=== PATIENT | female | born 1950 | race African-American/Black ===

== ENCOUNTER 2017-04-03 21:03 | Emergency (ER) | payer MEDICARE, MEDICAID ==
[~2017-04-03] VITALS: Ht 165.1 cm; Wt 85.3 kg
--- NOTE | 2017-04-03 21:15 | NUR ---
to bed 3 [facility] private ambulance c/o fever and cold symptoms. place pt on cardiac monitoring, continuous pox. pt daughter at bedside. pending er md lucas.
[2017-04-03] MEDS ORDERED: IV NS 0.9% 1,000 ML BAG IV ONE (22:00)
[2017-04-03 22:06] LABS: BASOPHILS % (AUTO) 0.1 % (0.0-2.0); EOSINOPHILS # (AUTO) 0.4 /CMM (0.0-0.7); EOSINOPHILS % (AUTO) 2.8 % (0.0-6.0); HEMATOCRIT 45 % (33-45); HEMOGLOBIN 14.8 g/dL (11.5-14.8); LYMPHOCYTES # (AUTO) 2.1 /CMM (0.8-4.8); LYMPHOCYTES % (AUTO) 14.3 % (20.0-44.0); MEAN CORPUSCULAR HEMOGLOBIN 30 PG (26.0-33.0); MEAN CORPUSCULAR HGB CONC 33 g/dl (31.0-36.0); MEAN CORPUSCULAR VOLUME 90 fL (82-100); MONOCYTES # (AUTO) 0.3 /CMM (0.1-1.30); MONOCYTES % (AUTO) 2.2 % (2.0-12.0); NEUTROPHILS # (AUTO) 12.1 /CMM (1.8-8.9); NEUTROPHILS % (AUTO) 80.6 % (43.0-81.0); PLATELET COUNT (AUTO) 297 /CMM (150-450); RDW COEFFICIENT OF VARIATION 14.6 (11.5-15.0); RED BLOOD CELL COUNT(AUTO) 4.96 MIL/uL (4.0-5.2)
[2017-04-03 22:25] LABS: CALCIUM, SERUM 9.2 mg/dL (8.5-10.1); CARBON DIOXIDE 24 mmol/L (21-32); CHLORIDE 108 mmol/L (98-107); GLUCOSE 99 mg/dL (74-106); POTASSIUM 3.5 mmol/L (3.5-5.1); SODIUM SERUM 142 mmol/L (136-145); UREA NITROGEN, BLOOD 10 mg/dL (7-18)
[2017-04-03 22:27] LABS: TROPONIN I < 0.017 ng/mL (0.00-0.056)
[2017-04-03 22:28] LABS: ALANINE AMINOTRANSFERASE 34 U/L (12-78); ALBUMIN 3.3 g/dL (3.4-5.0); ALKALINE PHOSPHATASE 64 U/L (46-116); ASPARTATE AMINOTRANSFERASE 24 U/L (15-37); BILIRUBIN,DIRECT 0.4 mg/dL (0.0-0.2); BILIRUBIN,TOTAL 1.7 mg/dL (0.2-1.0); TOTAL PROTEIN, SERUM 7.6 g/dL (6.4-8.2)
[2017-04-03] MEDS ORDERED: ACETAMINOPHEN 650 MG/SUPP.RECT RC ONE (22:38)
--- NOTE | 2017-04-03 22:40 | NUR ---
rectal temp 100.1. er md made aware. pt medicated as ordered.
--- NOTE | 2017-04-03 22:45 | NUR ---
er md at bedside talking to pt daughter regarding lab results and discharge.
--- NOTE | 2017-04-03 22:58 | NUR ---
CALLED [facility] FOR TRANSPORTATION GOING BACK TO SNF, ETA 0039
--- NOTE | 2017-04-04 | NUR ---
pt asleep, no acute distress noted, resp even and unlabored. pt daughter remains at bedside.
[2017-04-04] MEDS ORDERED: ACETAMINOPHEN 650 MG/SUPP.RECT RC ONE (01:30)
--- NOTE | 2017-04-04 01:50 | NUR ---
IV removed. Catheter intact and site benign. Pressure and 4x4 applied to site. No bleeding noted.
--- NOTE | 2017-04-04 01:51 | NUR ---
transport at bedside report given to [facility]t transport.
[2017-04-04 01:58] VITALS: BP 179/76
== END 2017-04-04 02:00 | disposition home or self-care (01) ==
LOC: ER 21:05
DX: J06.9 Acute upper respiratory infection, unspecified (principal); R50.9 Fever, unspecified; I12.9 Hypertensive chronic kidney disease with stage 1 through stage 4 chronic kidney disease, or unspecified chronic kidney disease; N18.9 Chronic kidney disease, unspecified; Z86.73 Personal history of transient ischemic attack (TIA), and cerebral infarction without residual deficits
CPT/HCPCS: 36415; 71010; 80048; 80076; 84484; 85025; 96360; 99285; A4606; J7030; Z7610

== ENCOUNTER 2020-01-30 22:00 | Inpatient (IN) | payer MEDICARE, OTHER ==
[~2020-01-30] VITALS: Ht 165.1 cm; Wt 93.9 kg
[2020-01-30] MEDS ORDERED: LORAZEPAM INJ 2 MG/ML VIAL ONE (22:03)
--- NOTE | 2020-01-30 22:15 | NUR ---
PT EFRAIN FROM [facility] C/O BEING FOUDN ALTERED, POSSIBLE SEIZURE, PT CONTRACTED AT BASELINE, APPEARS TO BE ACTIVELY HAVING A SEIZURE TO ER BED 11, PLACED ON NC 2 SATIING 100%, BLOOD DRAWN AND SENT TO LAB
[2020-01-30 22:16] LABS: BASOPHILS % (AUTO) 0.6 % (0.0-2.0); EOSINOPHILS % (AUTO) 1.1 % (0.0-6.0); HEMATOCRIT 46 % (33-45); HEMOGLOBIN 15.5 g/dL (11.5-14.8); LYMPHOCYTES # (AUTO) 2.1 /CMM (0.8-4.8); LYMPHOCYTES % (AUTO) 24.7 % (20.0-44.0); MEAN CORPUSCULAR HGB CONC 34 g/dl (31.0-36.0); MEAN CORPUSCULAR VOLUME 95 fL (82-100); MONOCYTES # (AUTO) 0.8 /CMM (0.1-1.30); MONOCYTES % (AUTO) 9.4 % (2.0-12.0); NEUTROPHILS # (AUTO) 5.5 /CMM (1.8-8.9); NEUTROPHILS % (AUTO) 64.2 % (43.0-81.0); PLATELET COUNT (AUTO) 239 /CMM (150-450); RED BLOOD CELL COUNT(AUTO) 4.84 MIL/uL (4.0-5.2); WHITE BLOOD COUNT (AUTO) 8.6 K/uL (4.3-11.0)
--- NOTE | 2020-01-30 22:22 | NUR ---
PT TAKEN TO CT
[2020-01-30 22:24] LABS: CALCIUM, SERUM 10.1 mg/dL (8.5-10.1); CARBON DIOXIDE 27 mmol/L (21-32); CHLORIDE 100 mmol/L (98-107); CREATININE 0.9 mg/dL (0.6-1.3); GLUCOSE 106 mg/dL (74-106); POTASSIUM 4.2 mmol/L (3.5-5.1); SODIUM SERUM 138 mmol/L (136-145); UREA NITROGEN, BLOOD 17 mg/dL (7-18)
[2020-01-30 22:30] LABS: ALANINE AMINOTRANSFERASE 39 U/L (12-78); ALBUMIN 3.6 g/dL (3.4-5.0); ALKALINE PHOSPHATASE 127 U/L (46-116); ASPARTATE AMINOTRANSFERASE 29 U/L (15-37); BILIRUBIN,DIRECT 0.2 mg/dL (0.0-0.2); BILIRUBIN,TOTAL 0.7 mg/dL (0.2-1.0); TOTAL PROTEIN, SERUM 8.7 g/dL (6.4-8.2)
[2020-01-30] MEDS ORDERED: LORAZEPAM INJ 2 MG/ML VIAL IVP ONE (22:30)
[2020-01-30] MEDS ORDERED: IV NS 0.9% 1,000 ML BAG IV ONE (22:30)
[2020-01-30 22:31] LABS: ALCOHOL, BLOOD < 3 mg/dL (0-0)
--- NOTE | 2020-01-30 22:32 | NUR ---
PT CEASED POSSIBLE SEIZURE ACTIVITY
--- NOTE | 2020-01-30 22:41 | NUR ---
URINE COLLECTED AND SENT TO LAB
--- NOTE | 2020-01-30 23:23 | NUR ---
DR APONTE PAGED PER DR ANGEL.
--- NOTE | 2020-01-30 23:23 | NUR ---
COVID SEND OUT COLLECTED AND SENT TO LAB
[2020-01-31] VITALS (7 sets, daily range): BP systolic 122–188; BP diastolic 77–118
--- NOTE | 2020-01-31 00:17 | NUR ---
REPORT CALLED IN TO AUGUSTINE
[2020-01-31] MEDS ORDERED: IV NS 0.9% 1,000 ML IV PRN ×2 (00:21)
[2020-01-31] MEDS ORDERED: ZOLPIDEM TARTRATE 5 MG TABLET PO PRN (00:30)
[2020-01-31] MEDS ORDERED: HYDROCODONE/APAP 5/325MG TABLET PO PRN (00:30)
[2020-01-31] MEDS ORDERED: MAG HYDROX/AL HYDROX/SIMETH 30 ML UDC PO PRN (00:30)
[2020-01-31] MEDS ORDERED: ACETAMINOPHEN 325 MG TABLET PO PRN (00:30)
[2020-01-31] MEDS ORDERED: ONDANSETRON HCL/PF 4 MG/2 ML VIAL IVP PRN (00:30)
[2020-01-31] MEDS ORDERED: MAGNESIUM HYDROXIDE 30 ML UDC PO PRN (00:30)
--- NOTE | 2020-01-31 00:40 | NUR ---
RN OPENING NOTES: RECEIVED PT ON 2LPM VIA NC AND IS TOLERATING WELL. NO SOB NOTED. PT HAS FINN IV #20G AND IS PATENT AND INTACT. CURRENTLY H/L AT THIS TIME. PT OPENS EYES BUT IS NONVERBAL. BED PADDED FOR SEIZURE PRECAUTIONS. PT NOTED WITH G TUBE AND IS CLAMPED AT THIS TIME. BED KEPT IN LOW, LOCKED POSITION, AND SIDE RAILS X 3 UP. BED ALARM ACTIVATED. WILL CONTINUE TO MONITOR PT.
[2020-01-31] MEDS: ENOXAPARIN SODIUM 40 MG/0.4 ML DISP.SYRIN SQ SCH ×2 (01:25→21:28)
--- NOTE | 2020-01-31 01:43 | NUR ---
RN NOTES: SPOKE WITH ANSWERING SERVICES FOR DR. APONTE. AWAITING FOR CALLBACK.
--- NOTE | 2020-01-31 02:05 | NUR ---
RN NOTES: CALLED ANSWERING SERVICES AND NOTIFIED THEM THAT I NEED TO SPEAK WITH MD. [employer] [employer] PAGED AND LEFT VOICEMAILS. STILL AWAITING CALLBACK.
--- NOTE | 2020-01-31 02:38 | NUR ---
RN NOTES: [employer] [employer] CALLED BACK AND ASKED IF MD REACHED BACK. SHE CALLED DR. APOTNE'S PHONE AND LEFT VOICEMAIL. NO CALLBACK FOR NOW.
--- NOTE | 2020-01-31 02:42 | NUR ---
MISSION SUPPORT SPECIALIST NOTES: SPOKE WITH MD AND GOT ORDER FOR KEPPRA 500MG BID STARTING NOW, CLONIDINE 0.1MG TID PRN SBP>150, OK TO START PT ON JEVITY 55ML/HR TUBE FEEDING. PT WILL BE ON TELE AND ADMITTING DIAGNOSIS IS SEIZURE. Addendum: 01/31/20 at 0246 by ROSARIO POSADAS RN AWARE OF ELEVATED BP. Addendum: 01/31/20 at 0332 by ROSARIO POSADAS RN ALSO CLARIFIED ORDER; PT IS TO BE ON TELE NOT MED SURG
[2020-01-31] MEDS ORDERED: LEVETIRACETAM SOL (5 ML) 100 MG/ML UDC PO SCH ×2 (03:00→21:00)
[2020-01-31] MEDS ORDERED: CLONIDINE HCL 0.1 MG TABLET PO PRN (03:00)
[2020-01-31] MEDS ORDERED: JEVITY 1.2 CAL 1,000 ML BOTTLE GT PRN (04:30)
--- NOTE | 2020-01-31 05:00 | NUR ---
TON CONTAINER FILLER NOTES: STARTED PT ON JEVITY 1.2 30ML/HR FOR NOW. WILL INCREASE TOLERATED.
[2020-01-31] MEDS ORDERED: DOCU-141 PO (06:04)
[2020-01-31] MEDS ORDERED: OMEP20CA15 PO (06:04)
[2020-01-31] MEDS ORDERED: NA P133E RC (06:04)
[2020-01-31] MEDS ORDERED: CLOP75TA15 PO (06:04)
[2020-01-31] MEDS ORDERED: FURO-144 PO (06:04)
[2020-01-31] MEDS ORDERED: ALBU2.5V38 NEB (06:04)
[2020-01-31] MEDS ORDERED: CYAN100T44 GT (06:04)
[2020-01-31] MEDS ORDERED: MULT-754 PO (06:04)
--- NOTE | 2020-01-31 06:38 | NUR ---
PRIME BROKER CLOSING NOTES: ALL NEEDS WERE ATTENDED AND ANTICIPATED FOR. PT KEPT CLEAN, DRY, AND COMFORTABLE. PT REMAINS ON 2LPM VIA NC AND IS TOLERATING WELL. NO SOB NOTED. NO S/S OF DISTRESS. PT REMAINS NONVERBAL AND CONTRACTED. PT OPENS EYES ONLY. PT AROUSABLE TO NAME AND TOUCH. PT HAS IV ON FINN 20G AND IS BEING INFUSED WITH IV NS AT 75ML/HR. PT ALSO HAS JEVITY FEEDING GOING THROUGH G TUBE AND IS RUNNING AT 30ML/HR. PT TOLERATING WELL. NO RESIDUAL NOTED. BED KEPT IN LOW, LOCKED POSITION, AND SIDE RAILS X 3UP, BED ALARM ACTIVATED AND BED PADDED FOR SEIZURE PRECAUTIONS. PT ON TELE MONITOR AND READING SHOWS SR 88. WILL ENDORSE TO AM NURSE FOR BARBARA.
--- NOTE | 2020-01-31 06:57 | NUR ---
PRODUCTION OPERATIONS INSPECTOR NOTE CRITICAL VALUE BUN 95. TRENDING DOWN IN EXPECTED DIRECTION FROM 102. Addendum: 01/31/20 at 0700 by DACIA CODY RN PLEASE DISREGARD ABOVE
--- NOTE | 2020-01-31 07:20 | NUR ---
MS RN RECEIVED A NON VERBAL NEW ADMISSION, AWAKE, G TUBE ON AT 30ML/HOUR, NO DISTRESS NOTED W/ ELEVATED B/P, WILL RECHECKED AGAIN.
--- NOTE | 2020-01-31 07:24 | NUR ---
CONCESSIONIST NOTES: ENDORSED TO AM NURSE, TISH ALMEIDA.
[2020-01-31] MEDS ORDERED: PANTOPRAZOLE 40 MG TABLET.DR PO SCH (09:23)
[2020-01-31] MEDS ORDERED: ZOLPIDEM TARTRATE 5 MG TABLET GT PRN (09:27)
[2020-01-31] MEDS ORDERED: MAGNESIUM HYDROXIDE 30 ML UDC GT PRN (09:27)
[2020-01-31] MEDS ORDERED: MAG HYDROX/AL HYDROX/SIMETH 30 ML UDC GT PRN (09:27)
--- NOTE | 2020-01-31 09:55 | NUR ---
MS TISH RECHECKED V/S, B/P-188/110,TEMP 99.5, WILL MONITOR PATIENT.
[2020-01-31] MEDS ORDERED: LEVETIRACETAM SOL (5 ML) 100 MG/ML UDC GT SCH ×2 (10:00→21:00)
[2020-01-31] MEDS: PANTOPRAZOLE 40 MG/PACK PACK GT SCH (11:08)
[2020-01-31] MEDS: CLONIDINE HCL 0.1 MG TABLET GT PRN (11:09)
--- NOTE | 2020-01-31 11:10 | NUR ---
MS WINSTON CATAPRES 0.1MG GT GIVEN FORELEVATED B/P, WILL RECHECK LATER TODAY.
[2020-01-31 11:25] LABS: C-REACTIVE PROTEIN 2.7 mg/dL (0.0-0.9)
--- NOTE | 2020-01-31 11:30 | NUR ---
MS TISH TYLENOL 650 MG GT GIVEN FOR TEMP 99.9, WILL RECHECKED LATER.
[2020-01-31] MEDS: ACETAMINOPHEN 650 MG/20.3 ML UDC GT PRN ×2 (11:38→17:47)
--- NOTE | 2020-01-31 16:37 | NUR ---
MS RN RECEIVED A POSITIVE RESULT FOR COVID, THIS IS THE SECOND SPECIMEN SENT.
[2020-01-31] MEDS ORDERED: DOCUSATE SODIUM 100 MG CAPSULE PO SCH (17:00)
--- NOTE | 2020-01-31 17:35 | NUR ---
MS RN WAS SEEN BY DR. ROCHA, NEUROLOGIST W/ WITNESS SEIZURE LASTS FO 1.5 MINUTES, W/ ORDERS MADE AND CARRIED OUT.
[2020-01-31] MEDS: DOCUSATE SODIUM LIQ 100 MG/10 ML UDC GT SCH (17:47)
[2020-01-31] MEDS: LORAZEPAM INJ 2 MG/ML VIAL IV PRN ×2 (17:50→22:50)
--- NOTE | 2020-01-31 17:50 | NUR ---
MS RN KEPPRA 1000MG AND ATIVAN 1MG IV GIVEN, PATIENT'S SEIZURE STOPPED.
[2020-01-31] MEDS ORDERED: LEVETIRACETAM SOL (5 ML) 100 MG/ML UDC PO ONE (18:00)
--- NOTE | 2020-01-31 20:00 | NUR ---
RETAIL COVERAGE MERCHANDISER LEAD NOTES RECEIVED PATIENT IN BED WITH HOB ELEVATED. NO SEIZURE ACTIVITY NOTED. NO SHORTNESS OF BREATH. ON 2 L NASAL CANNULA. 02 SAT 100%. NO S/S OF PAIN. ON TELE NSR 71. G TUBE SITE INTACT AND PATIENT, INFUSING JEVITY AT 55ML/HR. 0ML RESIDUAL NOTED. 20 G IVSL R AC INTACT AND PATIENT. REPOSITIONED PER HER COMFORT. SIDE RAILS UP. CALL LIGHT WITHIN REACH. VSS. WILL CONTINUE TO MONITOR.
--- NOTE | 2020-01-31 21:57 | NUR ---
SUPERVISOR HAND SILVERING NURSE FACIAL TWITCHING NOTED WILL ADMINISTER ATIVAN SCHEDULED. NO DISTRESS NOTED. REPOSITIONED PATIENT. KEPT HER CLEAN AND DRY. DUE HS MEDICATIONS GIVEN. WILL CONTINUE TO MONITOR.
[2020-02-01] VITALS (36 sets, daily range): BP systolic 115–200; BP diastolic 72–124
[2020-02-01] MEDS: CLONIDINE HCL 0.1 MG TABLET GT PRN ×3 (03:25→19:22)
--- NOTE | 2020-02-01 03:25 | NUR ---
CUPOLA MECHANIC NOTE PAZ RN GAVE CATAPRES 0.1MG BY G TUBE FOR BP 189/108. WILL RECHECK.
[2020-02-01] MEDS: JEVITY 1.2 CAL 1,000 ML BOTTLE GT PRN (03:53)
--- NOTE | 2020-02-01 04:25 | NUR ---
INTELLIGENCE CLERK NOTE BP CAME DOWN 166/82. CONTINUE TO MONITOR HER.
--- NOTE | 2020-02-01 06:37 | NUR ---
QUALITY IMPROVEMENT COORDINATOR CLOSING NOTE PT IS SLEEPING IN BED IN NO DISTRESS AN NO SEIZURE. 02 SATURATION IS 100% ON 2LP ON TELE NSR 94. NO SS OF PAIN. G TUBE FEEDING IS INFUSING WELL AT 55ML/HR. 0ML RESIDUAL TOLERATED WELL DURING SHIFT. HOB ELEVATED. KEPT DRY AND CLEAN. REPOSITIONED EVERY 2 HOURS DURING SHIFT. SIDE RAILS UP X2. CALL MORAES IS IN REACH. WILL ENDORSE TO DAY SHIFT RN ACCORDINGLY.
[2020-02-01 07:15] LABS: BASOPHILS % (AUTO) 0.4 % (0.0-2.0); HEMATOCRIT 43 % (33-45); HEMOGLOBIN 14.4 g/dL (11.5-14.8); LYMPHOCYTES % (AUTO) 18.5 % (20.0-44.0); MEAN CORPUSCULAR HGB CONC 33 g/dl (31.0-36.0); MEAN CORPUSCULAR VOLUME 96 fL (82-100); MONOCYTES # (AUTO) 0.6 /CMM (0.1-1.30); NEUTROPHILS % (AUTO) 71.1 % (43.0-81.0); PLATELET COUNT (AUTO) 187 /CMM (150-450); RED BLOOD CELL COUNT(AUTO) 4.51 MIL/uL (4.0-5.2); WHITE BLOOD COUNT (AUTO) 5.7 K/uL (4.3-11.0)
[2020-02-01] MEDS: LORAZEPAM INJ 2 MG/ML VIAL IV PRN ×2 (07:39→19:22)
[2020-02-01 07:40] LABS: CALCIUM, SERUM 9.3 mg/dL (8.5-10.1); CREATININE 0.7 mg/dL (0.6-1.3); MAGNESIUM 2.3 mg/dL (1.8-2.4); PHOSPHORUS 2.7 mg/dL (2.5-4.9); POTASSIUM 3.9 mmol/L (3.5-5.1)
--- NOTE | 2020-02-01 07:49 | NUR ---
RN NOTE Patient presents with facial twitching and minimal head movements from left to right. Ativan PRN given as scheduled. Patient in no acute distress, will continue to monitor. Addendum: 02/01/20 at 0805 by KENY TSAI RN BP was also elevated at 200/119, HR 98.
--- NOTE | 2020-02-01 08:05 | NUR ---
RN NOTE BP is down to 160/88. Patient is sleeping, will continue to monitor.
--- NOTE | 2020-02-01 08:15 | NUR ---
RN OPENING NOTE Patient is resting in bed, A/o x0, opens eyes, showing no signs of acute distress or SOB, saturating 100% on 1L NC. IV line in the RAC#20g is clean and intact s/l. G-tube feeding is running Jevity 1.2 @ 55mls/hour. Bed is in lowest position, side rails x3 in upright position, call light is within reach, fall, safety, seizure and aspiration precautions enforced. Will continue with plan of care.
--- NOTE | 2020-02-01 08:16 | NUR ---
dr. vega notified regarding patient seizure activity and he increase dose of seizure meds,primary rn and pharmacy made aware.
[2020-02-01] MEDS: DOCUSATE SODIUM LIQ 100 MG/10 ML UDC GT SCH ×2 (08:27→17:13)
[2020-02-01] MEDS: ACETAMINOPHEN 650 MG/20.3 ML UDC GT PRN (08:27)
[2020-02-01] MEDS: LEVETIRACETAM SOL (5 ML) 100 MG/ML UDC GT SCH ×2 (08:28→20:09)
[2020-02-01] MEDS: PANTOPRAZOLE 40 MG/PACK PACK GT SCH (08:28)
[2020-02-01] MEDS: CLOPIDOGREL BISULFATE 75 MG TABLET GT SCH (08:28)
[2020-02-01] MEDS: FUROSEMIDE 40 MG TABLET GT SCH (08:28)
[2020-02-01] MEDS: CYANOCOBALAMIN 100 MCG TABLET GT SCH (08:33)
[2020-02-01] MEDS ORDERED: OMEPRAZOLE 20 MG CAPSULE.DR PO SCH (09:00)
[2020-02-01] MEDS ORDERED: VALSARTAN 80 MG TABLET PO SCH (09:30)
[2020-02-01] MEDS: VALSARTAN 80 MG TABLET GT SCH (09:39)
[2020-02-01 09:41] LABS: ABG BASE EXCESS 3.6 mmol/L; ABG OXYGEN SATURATION 98.3 % (92.0-98.5); ABG PCO2 42.6 mmHg (35.0-45.0); ABG PH 7.439 (7.350-7.450); ABG PO2 106.3 mmHg (75.0-100.0); AaDO2 43.1 mmHg; COHb 0.3 % (0.5-1.5); MetHb 0.5 % (0.0-1.5); O2Hb 97.5 % (94.0-97.0); SITE, ABG Left Radial; VENT MODE, BG nasal cannula
--- NOTE | 2020-02-01 09:46 | NUR ---
DR. TONY CARDIOLOGY CONSULT REVIEWED VITALS AND ELEVATED BP W/ NEW BP MEDS.DR. LOPES PULMONARY CONSULT R/T COVID DX RELAYED PATIENT V/S AND MENTAL STATUS AND POSITIVE FOR SNOORING,ABG DONE RELAYED TO DR. LOPES NO NEW ORDER,WILLL CONTINUE TO MONITOR. PRIMARY RN AWARE.
[2020-02-01] MEDS ORDERED: PIPERACILLIN /TAZOBACTAM 3.375 G in IV D5W 50 ML IV SCH (10:00)
[2020-02-01] MEDS ORDERED: ZOSYN IVPB 3.375 G in IV D5W 50ml IV ONE (10:30)
--- NOTE | 2020-02-01 11:51 | NUR ---
RN NOTE Per Dr. León, order Kepprea 1000mg IV ONE TIME. Orders repeated back and will carry out.
[2020-02-01] MEDS ORDERED: LEVETIRACETAM (500MG) 1,000 MG in IV NS 0.9% 100 ML IV ONE (12:00)
--- NOTE | 2020-02-01 12:18 | NUR ---
RN NOTE Patient still presents with facial twitching on the right side, Keppra is running IV. Will continue to monitor patient.
--- NOTE | 2020-02-01 12:20 | NUR ---
patient still with facial twiching ,primary RN to give one dose iv keppra,PER NEURO DR. ROCHA he will talk to dr. weems for possible idrips neuroleptics and pt. need frquent neuro checks.
--- NOTE | 2020-02-01 12:22 | NUR ---
followup with dr. torre per he will talk to family,discussed code status still full code per dr. weems move patient to icu for frequent neuro checks.
--- NOTE | 2020-02-01 13:15 | NUR ---
REPORT GIVEN TO VIVIAN WINSTON FOR BARBARA. PATIENT IS TO BE TRANSFERRED TO ICU.
--- NOTE | 2020-02-01 14:00 | NUR ---
PATIENT WAS SUCCESSFULLY TRANSFERRED TO ROOM 255 ACLS PROTOCOL. TOLERATED WELL. HOOKED UP TO MONITOR. NO SIGNS OF DISTRESS.
--- NOTE | 2020-02-01 16:00 | NUR ---
Seen by Neuro Dr De La Fuente with new orders.
[2020-02-01] MEDS ORDERED: LACOSAMIDE 200 MG in IV NS 0.9% 50 ML IV SCH (16:30)
[2020-02-01] MEDS ORDERED: LACOSAMIDE 50 MG in IV NS 0.9% 50 ML IV SCH (16:30)
[2020-02-01] MEDS ORDERED: VIMPAT 200 MG in IV NS 0.9% 100 ML IV ONE (17:00)
[2020-02-01] MEDS: PIPERACILLIN /TAZOBACTAM 3.375 G in IV D5W 100 ML IV SCH (18:04)
--- NOTE | 2020-02-01 18:56 | NUR ---
RN CLOSING NOTE Patient in bed appears calm and relaxed. Noted with R side of face twitching occasionally. No signs of distress during seizures. Suction at bedside. On NC 1 L o2 sat @ 100%. AO x0 non verbal and only moves to localized pain. SR 90-100 bpm. GT feeding running Jevity @ 55ml/hr tolerating well. Flushed water via GT for hydration. Has FINN #18. Padded side rails and seizure precautions implemented. Safety measures reinforced. Bed locked and on lowest position. Will endorse to night nurse nurse.
--- NOTE | 2020-02-01 19:15 | NUR ---
RN OPENING NOTES RECEIVED PT ON BED GCS 6, EYES CLOSED WITHDRAWAL ON PAIN, NON RESPONSIVE TO VERBAL, ON O2 2L VIA NC SPO2 99% NO SIGN AND SYMPTOMS OF RESPIRATORY DISTRESS, WHILE RECEIVING PT I NOTICE THAT SHE HAD A TWITCHING SEIZURE THAT LAST FOR 15 SEC, PRN MEDICATION WAS GIVEN MOUTH SUCTIONING DONE MINIMAL SECRETION COLLECTED, ON TELE MONITOR READS SINUS RHYTHM, DROPLET ISOLATION MAINTAINED FOR COVID 19, SEIZURE PRECAUTION MAINTAINED , SAFETY MEASURE MAINTAINED WILL CONT TO MONITOR Addendum: 02/01/20 at 2352 by ANJUM EDUARDO RN PT ON GTUBE PATENT AND ON PLACED RESIDUAL CHECKED WITH ONGOING JEVITY 1.2 RUNNING AT 55 ML/HR, PT HAVE IV# 20 RAC PATENT AND FLUSHED AND ROSAURA MIDLINE PATENT AND FLUSHED
[2020-02-01] MEDS: ENOXAPARIN SODIUM 40 MG/0.4 ML DISP.SYRIN SQ SCH (20:10)
--- NOTE | 2020-02-01 20:41 | NUR ---
RN NOTES CALLED DR APONTE DUE TO PATIENT BP IS STILL HIGH AFTER GIVING CATAPRES 0.1MG PRN @ 1921 HER LATEST BP IS 167/89, ALSO INFORM HIM ABOUT THE TWITCHING SEIZURE OF THE PT @ 1914, HE MADE AN ORDER FOR NITRO PASTE 1/2 INCH Q6H AND ALSO INFORM DR. ROCHA ABOUT THE PT SEIZURE EPISODE, INFORMED DR. ROCHA WAITING RESPONSE
[2020-02-01] MEDS: NITROGLYCERIN PACKET 1 GM PACKET TOP SCH (21:05)
[2020-02-01] MEDS: LACOSAMIDE 100 MG in IV NS 0.9% 50 ML IV SCH (22:02)
[2020-02-01] MEDS ORDERED: LACOSAMIDE 100 MG in IV NS 0.9% 50 ML IV SCH (23:00)
[2020-02-02] VITALS (85 sets, daily range): BP systolic 57–177; BP diastolic 32–108
--- NOTE | 2020-02-02 | NUR ---
RN NOTES NITROL PASTE NON ADMINISTERED BECAUSE IT IS TOO EARLY TO GIVE LAST DOSE WAS GIVE @ 2100 LATEST BP IS 131/89 CHARGE NURSE AWARE
[2020-02-02] MEDS: NITROGLYCERIN PACKET 1 GM PACKET TOP SCH ×4 (00:06→11:35)
[2020-02-02] MEDS: JEVITY 1.2 CAL 1,000 ML BOTTLE GT PRN (00:45)
[2020-02-02] MEDS: PIPERACILLIN /TAZOBACTAM 3.375 G in IV D5W 100 ML IV SCH ×3 (01:32→17:08)
[2020-02-02] MEDS: CLONIDINE HCL 0.1 MG TABLET GT PRN (06:50)
--- NOTE | 2020-02-02 07:12 | NUR ---
RN CLOSING NOTES PT ON BED GCS 7, OPEN EYES TO STIMULI, NO SIGN AND SYMPTOMS OF RESPIRATORY DISTRESS NO SIGNIFICANT CHANGES ON CONDITION NOTED,BEDSIDE MONITOR READS SINUS RHYTHM, DROPLET ISOLATION MAINTAINED, SAFETY AND SEIZURE PRECAUTION OBSERVED ALL NEEDS ATTENDED WILL ENDORSE TO AM SHIFT NURSE
--- NOTE | 2020-02-02 07:15 | NUR ---
DAIRY TECHNOLOGIST NOTES RECEIVED PATIENT OBTUNDED , OPENS EYES , DOESN'T FOLLOW COMMANDS , NOT IN ACUTE DISTRESS , RESPIRATIONS EVEN AND UNLABORED WITH SPO2 OF 100% VIA 2LPM NC , SR 75 ON BEDSIDE MONITOR , GT PATENT AND INTACT WITH JEVITY @ 55 ML /HR TOLERATING WELL WITH NO RESIDUALS , FINN # 18 PATENT AND INTACT SL , FINN MIDLINE WITH NS @ TKO INFUSING WELL , ALL NEEDS ATTENDED , WILL CONTINUE TO MONITOR
--- NOTE | 2020-02-02 08:17 | NUR ---
AMMONIUM NITRATE CRYSTALLIZER NOTES RECEIVED A CALL FROM DR ESPINO , DISCUSSED PT HAD EPISODE OF TWITCHING WITH ELEVATED HR @ 1915 PM LASTING FOR 15 SECONDS ,NO EPISODES OF TWITCHING OR SEIZURE AT THIS TIME , PER MD PUT AN ORDER FOR EEG ROUTINE , ORDER CARRIED OUT
[2020-02-02] MEDS: DOCUSATE SODIUM LIQ 100 MG/10 ML UDC GT SCH ×2 (08:26→17:07)
[2020-02-02] MEDS: LEVETIRACETAM SOL (5 ML) 100 MG/ML UDC GT SCH ×2 (08:26→21:23)
[2020-02-02] MEDS: FUROSEMIDE 40 MG TABLET GT SCH (08:27)
[2020-02-02] MEDS: PANTOPRAZOLE 40 MG/PACK PACK GT SCH (08:27)
[2020-02-02] MEDS: HYDROCODONE/APAP 5/325MG TABLET GT PRN (08:27)
[2020-02-02] MEDS: CLOPIDOGREL BISULFATE 75 MG TABLET GT SCH (08:27)
[2020-02-02] MEDS: VALSARTAN 80 MG TABLET GT SCH (08:27)
[2020-02-02] MEDS: LACOSAMIDE 100 MG in IV NS 0.9% 50 ML IV SCH (08:42)
[2020-02-02] MEDS ORDERED: MINOXIDIL (2.5MG) 2.5 MG TABLET PO SCH (09:00)
[2020-02-02] MEDS ORDERED: AMLODIPINE BESYLATE 5 MG TABLET PO ONE (09:00)
[2020-02-02] MEDS ORDERED: AMLODIPINE BESYLATE 5 MG TABLET PO SCH (09:00)
[2020-02-02] MEDS: CYANOCOBALAMIN 100 MCG TABLET GT SCH (09:31)
--- NOTE | 2020-02-02 09:38 | NUR ---
CCU NURSE NOTES INSERTED FC ORDERED BY DR JACOB , DRAINING VIA GRAVITY WITH CLEAR YELLOW URINE , TOLERATED WELL WILL CONTINUE TO MONITOR
[2020-02-02] MEDS: LORAZEPAM INJ 2 MG/ML VIAL IV PRN (09:46)
--- NOTE | 2020-02-02 09:53 | NUR ---
OIL EXPLORATION ENGINEER NOTES NOTIFIED DR STARK PT HAD EPISODE OF FACIAL TWITCHING FOR 15-20 SECONDS NOTED POST ICTAL SNOORING AT THIS TIME , VS STABLE NO DISTRESS ,SUCTIONED PT , ON 2LPM NC SPO2 OF 100% , PRN ATIVAN 1MG GIVEN , PER MD GIVE PT ANOTHER VIMPAT 100MG AND INCREASE DOSE TO 200MG Q12 ,
--- NOTE | 2020-02-02 10:25 | NUR ---
PANEL MONITOR NOTES CALLED DR STARK NOTIFIED PT IS HAVING SEIZURE ACTIVITY , PER MD HE DISCUSSED PLAN OF INTUBATING THE PT TO DR JACOB , NOTIFIED DR LOPES REGARDING THR PLAN OF INTUBATION DUE TO FREQUENT SEIZURE ACTIVITY , PER OK TO INTUBATE , CALL DR BASILIA ELLIS FOR INTUBATION
[2020-02-02] MEDS ORDERED: LACOSAMIDE 100 MG in IV NS 0.9% 50 ML IV ONE (10:30)
--- NOTE | 2020-02-02 10:45 | NUR ---
RD SCIENTIST NOTES PT STABLE S/P INTUBATION , NO DISTRESS , TOLERATED WELL , , , SPO2 OF 100% , ETT 7.5/ IN PLACE , AC 16 , TV 500 FIO2 50% AND PEEP OF 5 , CHEST XRAY PLACED STAT , PER DR BASILIA ELLIS GIVE VERSED 4MG IVP , ORDER CARRIED OUT .
--- NOTE | 2020-02-02 10:50 | NUR ---
MANAGER HYDRAULIC NOTES CHEST XRAY REVIEWED BY DR LOPES ,
[2020-02-02] MEDS ORDERED: MIDAZOLAM HCL 2 MG/2ML VIAL IV ONE (11:00)
--- NOTE | 2020-02-02 11:00 | NUR ---
RT PT ORALLY INTUBATED WITH 7.5 ETT MARKED AT 23 CM LIP. ETT SECURED AND STABLED WITH ANCHOR FAST. VENT ALARMS CHECKED AND AUDIBLE. VENT PLUGGED IN RED OUTLET. WILL CONTINUE TO MONITOR T.O SHIFT.
[2020-02-02] MEDS: MIDAZOLAM HCL 100 MG in IV NS 0.9% 80 ML IV PRN ×2 (11:33→23:01)
[2020-02-02 13:17] LABS: ABG BASE EXCESS 4.6 mmol/L; ABG OXYGEN SATURATION 99.2 % (92.0-98.5); ABG PCO2 32.6 mmHg (35.0-45.0); ABG PH 7.534 (7.350-7.450); ABG PO2 163.7 mmHg (75.0-100.0); AaDO2 156.1 mmHg; COHb 0.2 % (0.5-1.5); MetHb 0.2 % (0.0-1.5); O2Hb 98.8 % (94.0-97.0); PEEP,BG 5 cm H2O; SITE, ABG Left Radial; VT, ABG 500 mL
--- NOTE | 2020-02-02 13:23 | NUR ---
FORMULATION TECHNICIAN NOTES ABG RELATED TO DR LOPES , ORDERED TO CHANGE TV TO 450 , ORDER CARRIED OUT , RT MAISHA AT BEDSIDE , CHANGED TV TO 450 , SPO2 OF 100% NO DISTRESS NOTED, WILL CONTINUE TO MONITOR
--- NOTE | 2020-02-02 13:30 | NUR ---
RT ABG DONE AND RESULTS RELAYED TO RN, PER MD ORDER DECREASE VT TO 450.
[2020-02-02] MEDS ORDERED: IV NS 0.9% 500 ML IV ONE (15:00)
[2020-02-02] MEDS ORDERED: NOREPINEPHRINE 32 MG in IV NS 0.9% 218 ML IV PRN ×2 (15:00→15:30)
--- NOTE | 2020-02-02 15:00 | NUR ---
TYPING CHECKER NOTES NOTIFIED DR TONY THAT PT BP IS ON LOW 60'S , CURRENTLY INTUBATED , ON VERSED @ 1.5MG /HR , PER MD GIVE 500ML BOLUS , START PT ON LEVOPHED AND DC ALL ANTI HYPERTENSIVE MEDICATIONS , ORDERS CARRIED OUT
[2020-02-02] MEDS: ACETAMINOPHEN 650 MG/20.3 ML UDC GT PRN (15:16)
[2020-02-02] MEDS: NOREPINEPHRINE 8 MG in IV NS 0.9% 242 ML IV PRN ×2 (15:24→23:01)
--- NOTE | 2020-02-02 15:57 | NUR ---
ARTILLERY OFFICER NOTES SEEN AND EVALUATED BY DR STARK , NOTIFIED PT ON VERSED @ 2MG , LEVOPHED STARTED DUE TO LOW BP , NO SEIZURE ACTIVITY AFTER INTUBATION , PT SEDATED AT THIS TIME , AWARE
--- NOTE | 2020-02-02 15:59 | NUR ---
[employer] REP NOTES PER OK TO CHANGE VIMPAT 200MG Q12 IV TO GT , ORDER CARRIED OUT
--- NOTE | 2020-02-02 17:47 | NUR ---
BALLOON DIPPER NOTES CALLED PHARMACY SPOKE WITH DANNA , DISCUSSED THAT VIMPAT IS NOT YET VERIFIED , PER DANNA THEY NEED TO LOAD IN N OMNICELL
[2020-02-02] MEDS ORDERED: NITROGLYCERIN 30 GM TUBE TOP SCH (18:00)
--- NOTE | 2020-02-02 19:04 | NUR ---
FRONT DESK REPRESENTATIVE NOTES PT STABLE AT THIS TIME , NO ACUTE DISTRESS , TOLERATING CURRENT VENT SETTINGS WITH SPO2 OF 100% ETT 7.[address] , SR 85 ON BEDSIDE MONITOR , GTF TOLERATING WELL . ROSAURA MIDLINE WITH VERSED @ 3MG/HR , LEVOPHED @ 0.2MCG/KG/MIN , FINN # 18 WITH NS @ TKO , TEMP OF 98.5F , REPORT GIVEN TO ULYSSES FOR CONTINUITY OF CARE
--- NOTE | 2020-02-02 19:10 | NUR ---
FOOD SERVICE WORKER HOSPITAL OPENING NOTES: Rec'd pt intubated 7.11/18 at the [facility] on mechanical ventilation tolerating settings well. No SOB or respiratory distress noted. On isolation for pos Covid. SR on tele monitor. . IV site on FINN #18 and ROSAURA mid patent and flushing. Dressings c/d/i. Sedated w/Versed infusing at 3mg/hr. Levo infusing at 0.2mcg/kg/min to maintain SBP >90. GT site patent and flushed with no residual noted. Jevity infusing at 55ml/hr. Tolerating well. Ron cath in place patent and draining urine via gravity. Safety measures in place. Will continue to monitor.
[2020-02-02] MEDS ORDERED: ETOMIDATE 2 MG/ML VIAL IV ONE (19:27)
[2020-02-02] MEDS ORDERED: SUCCINYLCHOLINE CHLORIDE 20 MG/ML VIAL IV ONE (19:27)
[2020-02-02] MEDS ORDERED: FEE EMEERGENCY 1 MIN EA MC ONE (19:27)
[2020-02-02] MEDS ORDERED: LACOSAMIDE 200 MG in IV NS 0.9% 100 ML IV SCH (21:00)
[2020-02-02] MEDS ORDERED: LACOSAMIDE 50 MG TABLET GT SCH (21:00)
[2020-02-02] MEDS ORDERED: LACOSAMIDE 50 MG TABLET PO SCH (21:00)
--- NOTE | 2020-02-02 21:10 | NUR ---
STORAGE GARAGE MANAGER NOTE: 2009: at bedside to perform EEG. 2103: EEG complete. Will continue to monitor.
[2020-02-02] MEDS: LACOSAMIDE ORAL SOLN 50 MG/5 ML UDC GT SCH (21:24)
[2020-02-02] MEDS: ENOXAPARIN SODIUM 40 MG/0.4 ML DISP.SYRIN SQ SCH (21:25)
[2020-02-03] VITALS (81 sets, daily range): BP systolic 73–178; BP diastolic 31–107
[2020-02-03] MEDS: PIPERACILLIN /TAZOBACTAM 3.375 G in IV D5W 100 ML IV SCH ×3 (02:25→18:01)
[2020-02-03 04:25] LABS: BASOPHILS % (AUTO) 0.3 % (0.0-2.0); EOSINOPHILS % (AUTO) 0.3 % (0.0-6.0); HEMATOCRIT 37 % (33-45); HEMOGLOBIN 12.6 g/dL (11.5-14.8); LYMPHOCYTES # (AUTO) 1.9 /CMM (0.8-4.8); LYMPHOCYTES % (AUTO) 21.5 % (20.0-44.0); MEAN CORPUSCULAR HGB CONC 34 g/dl (31.0-36.0); MEAN CORPUSCULAR VOLUME 95 fL (82-100); MONOCYTES # (AUTO) 0.9 /CMM (0.1-1.30); MONOCYTES % (AUTO) 9.6 % (2.0-12.0); NEUTROPHILS % (AUTO) 68.3 % (43.0-81.0); PLATELET COUNT (AUTO) 193 /CMM (150-450); RED BLOOD CELL COUNT(AUTO) 3.93 MIL/uL (4.0-5.2); WHITE BLOOD COUNT (AUTO) 8.8 K/uL (4.3-11.0)
[2020-02-03 04:47] LABS: ALBUMIN 2.5 g/dL (3.4-5.0); BILIRUBIN,TOTAL 0.5 mg/dL (0.2-1.0); CALCIUM, SERUM 8.5 mg/dL (8.5-10.1); CREATININE 1.4 mg/dL (0.6-1.3); MAGNESIUM 2.1 mg/dL (1.8-2.4); PHOSPHORUS 2.9 mg/dL (2.5-4.9); POTASSIUM 3.3 mmol/L (3.5-5.1); TOTAL PROTEIN, SERUM 6.8 g/dL (6.4-8.2)
[2020-02-03] MEDS: JEVITY 1.2 CAL 1,000 ML BOTTLE GT PRN (05:30)
--- NOTE | 2020-02-03 05:41 | NUR ---
DRUG ROOM CLERK NOTE: IV site on FINN leaking. Site D/C'd. Started new IV on RH #20 patent and flushed.
[2020-02-03] MEDS ORDERED: NOREPINEPHRINE 8MG/250ML RTU 250 ML IV ONE (05:53)
[2020-02-03] MEDS: NOREPINEPHRINE 8 MG in IV NS 0.9% 242 ML IV PRN ×2 (05:54→13:07)
--- NOTE | 2020-02-03 06:25 | NUR ---
HISTORIOGRAPHY PROFESSOR NOTE: Rec'd call from Dr. Miller ET tube is too far in and to pull back 3cm. Noted and carried out. Addendum: 02/03/20 at 0631 by ULYSSES VASQUEZ RN NOT CARRIED OUT.
--- NOTE | 2020-02-03 06:36 | NUR ---
HEADING UP MACHINE OPERATOR NOTE: Paged Dr. Alfaro about ET tube being too far in. Addendum: 02/03/20 at 0651 by ULYSSES VASQUEZ RN Dr. Alfaro agreed, ordered placed. RT notified.
--- NOTE | 2020-02-03 07:05 | NUR ---
BRINE ROOM LABORER NOTES RECEIVED PATIENT SEDATED , NOT IN ACUTE DISTRESS , RESPIRATIONS EVEN AND UNLABORED WITH SPO2 OF 100% VIA MECHANICAL VENT SETTINGS ORDERED , ETT INLACE NEED TO BE ADJUSTED , SR 85 ON BEDSIDE MONITOR , GT PATENT AND INTACT WITH JEVITY @ 55ML/HR TOLERATING WELL , FC DRAINING VIA GRAVITY WITH CLEAR YELLOW URINE , ROSAURA MIDLINE WITH VERSED @ 3MG/HR , LEVOPHED @ 0.3MCG/KG/MIN , INFUSING WELL , NS @ TKO @ R HAND # 20 INFUSING WELL , ALL NEEDS ATTENDED , WILL CONTINUE TO MONITOR
--- NOTE | 2020-02-03 07:08 | NUR ---
BUSINESS WRITER CLOSING NOTES: Pt remains intubated on mechanical ventilation, tolerating settigns well. No SOB or respiratory distress noted. No acute changes noted throughout shift. Tolerating GTF well. Versed infusing at 3mg/hr. Levo infusing at 0.3mcg/kg/min. Kept clean/ dry. All meds administered as ordered. Safety measures in place. Will endorse to TISH Marrero for BARBARA.
[2020-02-03 07:31] LABS: ABG BASE EXCESS 1.1 mmol/L; ABG OXYGEN SATURATION 99.3 % (92.0-98.5); ABG PCO2 42.3 mmHg (35.0-45.0); ABG PH 7.406 (7.350-7.450); ABG PO2 174.7 mmHg (75.0-100.0); AaDO2 134.2 mmHg; COHb 0.1 % (0.5-1.5); MetHb 0.3 % (0.0-1.5); O2Hb 98.9 % (94.0-97.0); SITE, ABG Right Radial; VT, ABG 450 mL
[2020-02-03 07:32] LABS: PEEP,BG 5 cm H2O
--- NOTE | 2020-02-03 08:00 | NUR ---
CHAIR MENDER NOTES VERSED @ 2MG/HR , NOTED WITH EYE TWITCH LASTING 5-10 SECONDS , VS STABLE , INTUBATED , UNABLE TO TURNED OFF SEDATION COMPLETELY PT NOTED WITH POSSIBLE SEIZURE ,
[2020-02-03] MEDS: LEVETIRACETAM SOL (5 ML) 100 MG/ML UDC GT SCH ×2 (08:01→23:45)
[2020-02-03] MEDS: PANTOPRAZOLE 40 MG/PACK PACK GT SCH (08:03)
[2020-02-03] MEDS: CLOPIDOGREL BISULFATE 75 MG TABLET GT SCH (08:03)
[2020-02-03] MEDS: FUROSEMIDE 40 MG TABLET GT SCH (08:03)
[2020-02-03] MEDS: DOCUSATE SODIUM LIQ 100 MG/10 ML UDC GT SCH ×2 (08:03→16:19)
[2020-02-03] MEDS: CYANOCOBALAMIN 100 MCG TABLET GT SCH (08:03)
[2020-02-03] MEDS: Z GUARD REMEDY 2 OZ OINT TP PRN (08:11)
--- NOTE | 2020-02-03 08:11 | NUR ---
FISHER SCALLOP NOTES ABG RELAYED TO DR MARIANNE MD ORDERED TO DECREASE FIO2 TO 35 % , ORDER CARRIED OUT
--- NOTE | 2020-02-03 08:26 | NUR ---
FARMWORKER ANIMAL NOTES SEEN AND EVALUATED BY DR JACOB , DISCUSSED PT IS CURRENTLY INTUBATED DUE TO CONTINUOUS SEIZURES , ON LEVOPHED @ 0.25MCG/KG/MIN , SEDATED WITH VERSED @ 2.5MGHR , UNABLE TO DO SEDATION VACATION DUE TO EYE TWITCH FOR 10 SECONDS POSSIBLE SEIZURE ? DISCUSSED LABS , AWARE
[2020-02-03] MEDS: LACOSAMIDE ORAL SOLN 50 MG/5 ML UDC GT SCH (08:34)
[2020-02-03] MEDS: IV NS 0.9% 1,000 ML IV PRN ×2 (08:36→18:07)
[2020-02-03] MEDS: POTASSIUM CL. PREMIX PERIPHER. 50 ML IV SCH ×2 (08:39→09:46)
[2020-02-03] MEDS ORDERED: AMLODIPINE BESYLATE 5 MG TABLET PO SCH (09:00)
[2020-02-03] MEDS: HYDROCORTISONE SOD SUCCINATE 100 MG/2 ML VIAL IV SCH ×3 (09:09→23:46)
[2020-02-03] MEDS: MIDAZOLAM HCL 100 MG in IV NS 0.9% 80 ML IV PRN ×2 (09:12→21:04)
--- NOTE | 2020-02-03 11:00 | NUR ---
PITCH GATHERER NOTES EYE TWITCHES NOTED LASTING 15-20 SECONDS , VS STABLE , VERSED INCREASED TO 3.5MG , ATIVAN 1 MG GIVEN SPO2 OF 100% VIA MECHANICAL VENT , WILL CONTINUE TO MONITOR
[2020-02-03] MEDS: LORAZEPAM INJ 2 MG/ML VIAL IV PRN (11:04)
--- NOTE | 2020-02-03 11:18 | NUR ---
MIXER OPERATOR HELPER HOT METAL NOTES NOTED WITH EYE TWITCHES , LASTING 15-20 SECONDS , HR 105-110 , SPO2 OF 100% , NO DISTESS , VERSED TITRATED TO 4MG /HR WILL CONTINUE TO MONITOR
[2020-02-03 12:48] LABS: APPEARANCE,URINE CLOUDY (CLEAR); BILIRUBIN,URINE NEGATIVE (NEGATIVE); BLOOD, URINE TRACE-INTA Ery/uL (NEGATIVE); COLOR,URINE YELLOW (YELLOW); KETONES,URINE NEGATIVE (NEGATIVE); LEUKOCYTE ESTERASE ,URINE MODERATE (NEGATIVE); NITRITE, URINE NEGATIVE (NEGATIVE); PH,URINE 5.5 (5.0-8.0); PROTEIN,URINE NEGATIVE (NEGATIVE); UGLUCOSE NEGATIVE (NEGATIVE)
[2020-02-03 13:24] LABS: BACTERIA,URINE Rare /HPF (None Seen); RBC,URINE 0-2 /HPF (0-2)
[2020-02-03 13:25] LABS: SQUAMOUS EPITHELIAL CELL,UR Few /HPF (None Seen)
[2020-02-03 13:32] LABS: CREATININE, URINE 68.4 MG/DL (30.0-125.0); URINE TOTAL PROTEIN 33.1 mg/dL (0-11.9)
[2020-02-03 13:42] LABS: URINE SODIUM, RANDOM < 5 mmol/l (40-220)
[2020-02-03 14:59] LABS: EOSINOPHIL,URINE None Seen
--- NOTE | 2020-02-03 17:31 | NUR ---
RT NOTE PATIENT RECEIVED ON MECHANICAL VENT WITH ORDERED SETTINGS. AIRWAY PATENT, ET TUBE SIZE 7.5 23@ LEFT LIP MOVED TO CENTER LIP, SECURED WITH ANCHOR FAST. ET TUBE PULL OUT 3CM TO 20CM AT LIP PER MD ORDERS. VENT PLUGGED IN TO RED OUTLET WITH ALARMS ON AND AUDIBLE. AMBU BAG BY THE BEDSIDE. MONITOR THROUGHOUT SHIFT.
--- NOTE | 2020-02-03 18:09 | NUR ---
RIM BUSTER NOTES SEEN AND EVALUATED BY DR STARK , DISCUSSED PT HAD 2 EPISODES OF SEIZURE ACTIVITY LASTING FOR 15-20 SECONDS , NOTED WITH EYE TWITCHING AT THE RIGHT SIDE , MD AWARE , INCREASED VIMPAT DOSE ,
--- NOTE | 2020-02-03 23:35 | NUR ---
Did not have enough vimpat medication dose for the 300mg in the hospital. Called switchboard and control room operator pharmacist who will come into hospital to give full dose of vimpat. Awaiting pharmacist.
[2020-02-03] MEDS: ENOXAPARIN SODIUM 40 MG/0.4 ML DISP.SYRIN SQ SCH (23:45)
[2020-02-04] VITALS (28 sets, daily range): BP systolic 89–147; BP diastolic 57–93
[2020-02-04] MEDS: LACOSAMIDE ORAL SOLN 50 MG/5 ML UDC GT SCH ×2 (00:38→09:48)
[2020-02-04] MEDS: PIPERACILLIN /TAZOBACTAM 3.375 G in IV D5W 100 ML IV SCH ×3 (02:08→17:03)
[2020-02-04 04:48] LABS: BASOPHILS % (AUTO) 0.2 % (0.0-2.0); HEMATOCRIT 34 % (33-45); HEMOGLOBIN 11.3 g/dL (11.5-14.8); LYMPHOCYTES # (AUTO) 0.8 /CMM (0.8-4.8); LYMPHOCYTES % (AUTO) 15.4 % (20.0-44.0); MEAN CORPUSCULAR HGB CONC 33 g/dl (31.0-36.0); MEAN CORPUSCULAR VOLUME 94 fL (82-100); MONOCYTES # (AUTO) 0.6 /CMM (0.1-1.30); NEUTROPHILS # (AUTO) 3.6 /CMM (1.8-8.9); NEUTROPHILS % (AUTO) 72.4 % (43.0-81.0); PLATELET COUNT (AUTO) 178 /CMM (150-450)
[2020-02-04 05:03] LABS: ALBUMIN 2.1 g/dL (3.4-5.0); BILIRUBIN,TOTAL 0.3 mg/dL (0.2-1.0); CALCIUM, SERUM 8.5 mg/dL (8.5-10.1); MAGNESIUM 2.3 mg/dL (1.8-2.4); PHOSPHORUS 3.2 mg/dL (2.5-4.9); POTASSIUM 3.8 mmol/L (3.5-5.1); TOTAL PROTEIN, SERUM 6.2 g/dL (6.4-8.2)
[2020-02-04] MEDS: HYDROCORTISONE SOD SUCCINATE 100 MG/2 ML VIAL IV SCH (05:35)
[2020-02-04] MEDS: CLOPIDOGREL BISULFATE 75 MG TABLET GT SCH (08:11)
[2020-02-04] MEDS: PANTOPRAZOLE 40 MG/PACK PACK GT SCH (08:11)
[2020-02-04] MEDS: DOCUSATE SODIUM LIQ 100 MG/10 ML UDC GT SCH ×2 (08:11→17:03)
[2020-02-04] MEDS: CYANOCOBALAMIN 100 MCG TABLET GT SCH (08:12)
[2020-02-04] MEDS: LEVETIRACETAM SOL (5 ML) 100 MG/ML UDC GT SCH ×2 (08:12→21:55)
[2020-02-04] MEDS: MIDAZOLAM HCL 100 MG in IV NS 0.9% 80 ML IV PRN ×2 (08:34→21:54)
[2020-02-04] MEDS: IV NS 0.9% 1,000 ML IV PRN ×2 (08:58→22:52)
[2020-02-04] MEDS ORDERED: HYDROCORTISONE SOD SUCCINATE 100 MG/2 ML VIAL IV SCH (17:00)
--- NOTE | 2020-02-04 18:43 | NUR ---
ICU/RN closing note: Pt had a noneventful day. ETT to vent on AC mode as ordered, tolerating well. Seadted with Versed at 4 mcg/hr. No pressors, kept MAP> 60 at all times. Adequate urine output, fernández is patent and intact. Tolerating TF well with Jevity at 55 cc/hr. No skin breakdown noted. Sacral area protected with Z gaurd. Family was updated with pt's current status. DVT pumps started today, no contraindications noted. Will give report to shift coordinator RN for BARBARA.
[2020-02-04] MEDS: ENOXAPARIN SODIUM 40 MG/0.4 ML DISP.SYRIN SQ SCH (21:55)
[2020-02-04] MEDS: LACOSAMIDE 50 MG TABLET GT SCH (21:55)
[2020-02-05] VITALS (31 sets, daily range): BP systolic 89–156; BP diastolic 56–96
[2020-02-05] MEDS: PIPERACILLIN /TAZOBACTAM 3.375 G in IV D5W 100 ML IV SCH ×3 (01:29→17:32)
[2020-02-05] MEDS: MIDAZOLAM HCL 100 MG in IV NS 0.9% 80 ML IV PRN ×2 (07:46→20:04)
[2020-02-05] MEDS: HYDROCORTISONE SOD SUCCINATE 100 MG/2 ML VIAL IV SCH ×2 (08:51→16:50)
[2020-02-05] MEDS: PANTOPRAZOLE 40 MG/PACK PACK GT SCH (08:52)
[2020-02-05] MEDS: DOCUSATE SODIUM LIQ 100 MG/10 ML UDC GT SCH ×2 (08:52→16:49)
[2020-02-05] MEDS: CYANOCOBALAMIN 100 MCG TABLET GT SCH (08:52)
[2020-02-05] MEDS: CLOPIDOGREL BISULFATE 75 MG TABLET GT SCH (08:52)
[2020-02-05] MEDS: LACOSAMIDE 50 MG TABLET GT SCH ×2 (08:52→20:13)
[2020-02-05] MEDS: LEVETIRACETAM SOL (5 ML) 100 MG/ML UDC GT SCH ×2 (08:52→20:13)
[2020-02-05 09:54] LABS: BASOPHILS % (AUTO) 0.2 % (0.0-2.0); HEMATOCRIT 32 % (33-45); HEMOGLOBIN 10.8 g/dL (11.5-14.8); LYMPHOCYTES # (AUTO) 1.1 /CMM (0.8-4.8); LYMPHOCYTES % (AUTO) 26.7 % (20.0-44.0); MEAN CORPUSCULAR HGB CONC 33 g/dl (31.0-36.0); MEAN CORPUSCULAR VOLUME 95 fL (82-100); MONOCYTES # (AUTO) 0.5 /CMM (0.1-1.30); MONOCYTES % (AUTO) 11.5 % (2.0-12.0); NEUTROPHILS # (AUTO) 2.5 /CMM (1.8-8.9); NEUTROPHILS % (AUTO) 61.6 % (43.0-81.0); PLATELET COUNT (AUTO) 186 /CMM (150-450); RED BLOOD CELL COUNT(AUTO) 3.41 MIL/uL (4.0-5.2); WHITE BLOOD COUNT (AUTO) 4.1 K/uL (4.3-11.0)
[2020-02-05 10:04] LABS: BILIRUBIN,TOTAL 0.2 mg/dL (0.2-1.0); CALCIUM, SERUM 8.5 mg/dL (8.5-10.1); MAGNESIUM 2.2 mg/dL (1.8-2.4); PHOSPHORUS 3.4 mg/dL (2.5-4.9); POTASSIUM 3.6 mmol/L (3.5-5.1); TOTAL PROTEIN, SERUM 5.8 g/dL (6.4-8.2)
[2020-02-05] MEDS: IV NS 0.9% 1,000 ML IV PRN (12:50)
--- NOTE | 2020-02-05 15:00 | NUR ---
RN NOTE SPOKE TO DR. ROCHA, ORDERED TO TITRATE VERSED DOWN TO 3.5 AND 3 AT NIGHT. WILL FOLLOW ORDERS. WILL ENDORSE TO PM NURSE. CALL LIGHT WITHIN REACH, SAFETY MAINTAINED, WILL CONTINUE TO MONITOR CLOSELY.
[2020-02-05] MEDS: JEVITY 1.2 CAL 1,000 ML BOTTLE GT PRN (16:52)
[2020-02-05] MEDS: ACETAMINOPHEN 650 MG/20.3 ML UDC GT PRN (17:31)
--- NOTE | 2020-02-05 19:31 | NUR ---
RN CLOSING NOTES NO ACUTE CHANGES TO PATIENT CONDITION DURING MY SHIFT. REMAINED SEDATED ON VERSED, DECREASED TO 3.5 TOLERATING WELL. PM NURSE WILL ATTEMPT TO DECREASE IT FURTHER DOWN TO 3. ON MECHANICAL VENT TOLERATING SETTING WELL. SATURATION AT 100%. PATIENT HAD A SLIGHT FEVER OF 100.4, TYLENOL WAS GIVEN AND COOLING MEASURES INTACT. ALL PATIENT NEEDS WERE MET, CALL LIGHT WITHIN REACH, ENDORSED TO PM NURSE FOR CONTINUITY OF CARE.
[2020-02-05] MEDS: ENOXAPARIN SODIUM 40 MG/0.4 ML DISP.SYRIN SQ SCH (20:14)
[2020-02-06] VITALS (24 sets, daily range): BP systolic 105–168; BP diastolic 64–107
[2020-02-06] MEDS: IV NS 0.9% 1,000 ML IV PRN ×2 (01:30→17:41)
[2020-02-06] MEDS: PIPERACILLIN /TAZOBACTAM 3.375 G in IV D5W 100 ML IV SCH ×3 (03:29→17:27)
[2020-02-06 04:37] LABS: BASOPHILS % (AUTO) 0.1 % (0.0-2.0); EOSINOPHILS % (AUTO) 0.1 % (0.0-6.0); HEMATOCRIT 35 % (33-45); HEMOGLOBIN 11.7 g/dL (11.5-14.8); LYMPHOCYTES # (AUTO) 1.5 /CMM (0.8-4.8); LYMPHOCYTES % (AUTO) 31.4 % (20.0-44.0); MEAN CORPUSCULAR HGB CONC 33 g/dl (31.0-36.0); MEAN CORPUSCULAR VOLUME 96 fL (82-100); MONOCYTES # (AUTO) 0.6 /CMM (0.1-1.30); MONOCYTES % (AUTO) 11.8 % (2.0-12.0); NEUTROPHILS # (AUTO) 2.8 /CMM (1.8-8.9); NEUTROPHILS % (AUTO) 56.6 % (43.0-81.0); PLATELET COUNT (AUTO) 194 /CMM (150-450); RED BLOOD CELL COUNT(AUTO) 3.63 MIL/uL (4.0-5.2); WHITE BLOOD COUNT (AUTO) 4.9 K/uL (4.3-11.0)
[2020-02-06 04:54] LABS: ALBUMIN 2.1 g/dL (3.4-5.0); BILIRUBIN,TOTAL 0.3 mg/dL (0.2-1.0); CALCIUM, SERUM 8.4 mg/dL (8.5-10.1); CREATININE 1.1 mg/dL (0.6-1.3); MAGNESIUM 2.3 mg/dL (1.8-2.4); PHOSPHORUS 3.9 mg/dL (2.5-4.9); POTASSIUM 4.1 mmol/L (3.5-5.1); TOTAL PROTEIN, SERUM 6.4 g/dL (6.4-8.2)
--- NOTE | 2020-02-06 06:30 | NUR ---
Patient remains in no acute distress in bed. patient did not have any significant change in condition during shift. Patient continues to tolerate vent setting well and tolerating tube feeding well with 0 residuals. All needs met, all orders carried out. will endorse care to am RN for continuity of care.
--- NOTE | 2020-02-06 07:33 | NUR ---
RN OPENING NOTES RECEIVED PATIENT RESTING IN BED, SEDATED ON VERSED RUNNING AT 3MLS/HR, PATIENT TOLERATING WELL, NO FACIAL TWITCHING IS NOTED, PATIENT SEEMS COMFORTABLE WITH CURRENT SETTINGS, NO SEIZURE ACTIVITY NOTED PER PM NURSE. PATIENT IS ON A MECHANICAL VENT WITH SETTINGS ORDERED, TOLERATING WELL, NO SIGNS OF RESPIRATORY DISTRESS NOTED. SINUS MARJ ON THE MONITOR WITH HR AT 51, MD IS AWARE. FOLLOWED UP ON THE [facility], WILL BE DELIVERED SOME TIME TODAY. ALL PATIENT NEEDS MET, SAFETY MAINTAINED, CALL LIGHT WITHIN REACH, WILL MONITOR CLOSELY.
[2020-02-06] MEDS: MIDAZOLAM HCL 100 MG in IV NS 0.9% 80 ML IV PRN ×2 (07:55→21:02)
[2020-02-06] MEDS: PANTOPRAZOLE 40 MG/PACK PACK GT SCH (08:42)
[2020-02-06] MEDS: LEVETIRACETAM SOL (5 ML) 100 MG/ML UDC GT SCH ×2 (08:42→21:00)
[2020-02-06] MEDS: LACOSAMIDE 50 MG TABLET GT SCH ×2 (08:42→21:00)
[2020-02-06] MEDS: CLOPIDOGREL BISULFATE 75 MG TABLET GT SCH (08:43)
[2020-02-06] MEDS: HYDROCORTISONE SOD SUCCINATE 100 MG/2 ML VIAL IV SCH ×2 (08:43→16:10)
[2020-02-06] MEDS: DOCUSATE SODIUM LIQ 100 MG/10 ML UDC GT SCH ×2 (08:44→16:07)
[2020-02-06] MEDS: CYANOCOBALAMIN 100 MCG TABLET GT SCH (08:44)
--- NOTE | 2020-02-06 16:00 | NUR ---
RN NOTE SPOKE TO DR ROCHA REGARDING THE PATIENT NEURO STATUS. MD ORDERED TO FURTHER TITRATE VERSED DOWN TO 1.5 DURING MY SHIFT AND TRY TO GO LOW 1 TONIGHT IF PATIENT TOLERATES. REPORT ANY SIGNS OF SEIZURE OR UNUSUAL ACTIVITY TO DR ROCHA. WILL ENDORSE TO PM NURSE. WILL CONTINUE TO MONITOR CLOSELY AND CARRY OUT ORDERS.
[2020-02-06] MEDS: JEVITY 1.2 CAL 1,000 ML BOTTLE GT PRN (16:10)
--- NOTE | 2020-02-06 19:08 | NUR ---
RN CLOSING NOTES NO ACUTE CHANGES TO PT CONDITION DURING MY SHIFT. ALL PATIENT NEEDS MET, SCHEDULED MEDICATIONS GIVEN ON TIME. VERSED TITRATED DOWN ORDERED BY MD. TOLERATING VENT SETTINGS WELL, SATURATING WELL AT 100% WITH NO ACUTE DISTRESS NOTED. SAFETY MAINTAINED, CALL LIGHT WITHIN REACH, ENDORSED TO PM NURSE FOR CONTINUITY OF CARE.
--- NOTE | 2020-02-06 19:30 | NUR ---
PRENATAL NURSE CALL PLACED TO PHARMACY FOR VERSED DRIP.
[2020-02-06] MEDS: ENOXAPARIN SODIUM 40 MG/0.4 ML DISP.SYRIN SQ SCH (21:01)
[2020-02-07] VITALS (40 sets, daily range): BP systolic 125–179; BP diastolic 73–101
--- NOTE | 2020-02-07 01:00 | NUR ---
FARM OWNER OPERATOR VERSED DECREASED TO 1 MG/HR AT 0000 PT NOTED W/ELEVATED BP SHORTLY AFTER. CLONIDINE 0.1 MG GIVEN FOR BP 172/91. CONTINUE TO MONITOR.
[2020-02-07] MEDS: CLONIDINE HCL 0.1 MG TABLET GT PRN ×2 (01:20→17:33)
--- NOTE | 2020-02-07 02:00 | NUR ---
CALCINER FEEDER VERSED INCREASED TO 1.5 MG/HR PT BP INCREASED. CONTINUE TO MONITOR.
[2020-02-07 04:06] LABS: BASOPHILS % (AUTO) 0.2 % (0.0-2.0); EOSINOPHILS % (AUTO) 1.2 % (0.0-6.0); HEMATOCRIT 31 % (33-45); HEMOGLOBIN 10.4 g/dL (11.5-14.8); LYMPHOCYTES # (AUTO) 1.6 /CMM (0.8-4.8); MEAN CORPUSCULAR HGB CONC 33 g/dl (31.0-36.0); MEAN CORPUSCULAR VOLUME 94 fL (82-100); MONOCYTES # (AUTO) 0.4 /CMM (0.1-1.30); NEUTROPHILS # (AUTO) 3.4 /CMM (1.8-8.9); NEUTROPHILS % (AUTO) 62.6 % (43.0-81.0); PLATELET COUNT (AUTO) 207 /CMM (150-450); RED BLOOD CELL COUNT(AUTO) 3.29 MIL/uL (4.0-5.2); WHITE BLOOD COUNT (AUTO) 5.4 K/uL (4.3-11.0)
[2020-02-07 05:17] LABS: CREATININE 0.7 mg/dL (0.6-1.3); MAGNESIUM 2.2 mg/dL (1.8-2.4); POTASSIUM 3.7 mmol/L (3.5-5.1)
[2020-02-07 06:00] LABS: C-REACTIVE PROTEIN 0.5 mg/dL (0.0-0.9)
--- NOTE | 2020-02-07 06:05 | NUR ---
FOUNTAIN CLERK NO SEIZURE ACTIVITY NOTED.
[2020-02-07] MEDS ORDERED: MIDAZOLAM HCL IV PRN (07:00)
[2020-02-07] MEDS ORDERED: NS 0.9% IV PRN (07:00)
--- NOTE | 2020-02-07 07:30 | NUR ---
ICU/RN PT IS INTUBATED ON THE VENT AND SEDATED.ON VERSED DRIP.HR-SINUS BRADYCARDIA 45-50 BPM.G-TUBE INFUSING WITH JEVITY AT 55 ML/HR .NO RESIDUAL NOTED.F/C DRAINING WITH YELLOW URINE.LEFT UPPER ARM MIDLINE.AND RIGHT HAND PERIFERAL IV INFUSING WITH FLUIDS ORDERED..NO PRESSORS.BP HIGH 160/79. SUCTION PROVIDED.REPOSITION FOR COMFORT.
[2020-02-07] MEDS: LORAZEPAM INJ 2 MG/ML VIAL IV PRN (07:42)
[2020-02-07] MEDS: IV NS 0.9% 1,000 ML IV PRN ×2 (07:44→21:52)
--- NOTE | 2020-02-07 08:00 | NUR ---
ICU/RN PT HAS SEIZURES.MD NOTIFIED.ATIVAN GIVEN ORDERED.VERSED DRIP INCREASED. SEDATION VACATION IS NOT PROVIDED DUE TO SEIZURES .CONTINUE MONITORING
[2020-02-07] MEDS: HYDROCORTISONE SOD SUCCINATE 100 MG/2 ML VIAL IV SCH ×2 (08:15→16:37)
[2020-02-07] MEDS: DOCUSATE SODIUM LIQ 100 MG/10 ML UDC GT SCH ×2 (08:15→16:37)
[2020-02-07] MEDS: CYANOCOBALAMIN 100 MCG TABLET GT SCH (08:15)
[2020-02-07] MEDS: CLOPIDOGREL BISULFATE 75 MG TABLET GT SCH (08:15)
[2020-02-07] MEDS: LEVETIRACETAM SOL (5 ML) 100 MG/ML UDC GT SCH ×2 (08:15→21:02)
[2020-02-07] MEDS: PANTOPRAZOLE 40 MG/PACK PACK GT SCH (08:15)
[2020-02-07] MEDS: LACOSAMIDE 50 MG TABLET GT SCH ×2 (08:16→21:02)
[2020-02-07] MEDS ORDERED: LEVETIRACETAM SOL (5 ML) 100 MG/ML UDC GT ONE (09:00)
--- NOTE | 2020-02-07 09:00 | NUR ---
ICU/RN DUE MEDS ARE GIVEN ORDERED.KEPPRA DOSE INCREASED PER MD ORDER. CONTINUE MONITORING.
[2020-02-07] MEDS: JEVITY 1.2 CAL 1,000 ML BOTTLE GT PRN (09:43)
[2020-02-07] MEDS: MIDAZOLAM HCL IV PRN ×2 (10:50→21:53)
[2020-02-07] MEDS: NS 0.9% IV PRN ×2 (10:50→21:53)
--- NOTE | 2020-02-07 16:00 | NUR ---
ICU/RN PM CARE PROVIDED.WOUND DRESSING DONE ORDERED.SUCTION PROVIDED.REPOSITION FOR COMFORT.
--- NOTE | 2020-02-07 16:30 | NUR ---
ICU/RN DR ROCHA SEEN THE PT .ASK TO DECREASED VERSED TO 1.5 MG/HR AND MONITOR PT.
--- NOTE | 2020-02-07 17:20 | NUR ---
ICU/RN BP INCREASED TO 177/85.HR - 45 BPM. NOTICE BP INCREASED ,WHEN VERSED DECREASED.MD NOTIFIED.
--- NOTE | 2020-02-07 17:37 | NUR ---
ICU/RN BP 178/98.CLONIDINE 0.1 MG VIA G-TUBE GIVEN ORDERED.
--- NOTE | 2020-02-07 19:35 | NUR ---
RN NOTES RECEIVED PT ON ISOLATION FOR + COVID 19. PATIENT WITH ETT 7.5 AND POSITION @ 20 CM AT LIPINE WITH VENT SETTING AC 16 TV 450 FIO2 35% AND PEEP 5 . SEDATED WITH VERSED AT 1.5 ML/HR. TITRATED ORDERED. ABLE TO OPEN EYES, NO EPISODE OF SEIZURE NOTED. NO PRESSORS BP HIGH ON 150'S - 170'S WILL CLOSELY MONITOR. SB ON TELE MONITOR HR 58. SATURATION 98%. AFEBRILE. PATIENT HAS JEVITY 1.5 @ 55 ML/HR INTACT, PATENCY CHECKED WITH ZERO RESIDUAL. WITH GOOD PULSES. IV ON ROSAURA AND RT HANDF INTACT AND PATEN RUNNING WITH VERSED DRIP AND NS @ 75 ML/HR. KEPT PT CLEAN AND DRY. REPOSITION MUCH POSSIBLE. WILL CLOSELY MONITOR.
[2020-02-07] MEDS: ENOXAPARIN SODIUM 40 MG/0.4 ML DISP.SYRIN SQ SCH (21:03)
[2020-02-07] MEDS: HYDROCODONE/APAP 5/325MG TABLET GT PRN (21:44)
[2020-02-08] VITALS (46 sets, daily range): BP systolic 131–177; BP diastolic 69–96
[2020-02-08 04:27] LABS: BASOPHILS % (AUTO) 0.1 % (0.0-2.0); HEMATOCRIT 31 % (33-45); HEMOGLOBIN 10.4 g/dL (11.5-14.8); LYMPHOCYTES # (AUTO) 1.4 /CMM (0.8-4.8); LYMPHOCYTES % (AUTO) 22.6 % (20.0-44.0); MEAN CORPUSCULAR HGB CONC 33 g/dl (31.0-36.0); MEAN CORPUSCULAR VOLUME 95 fL (82-100); MONOCYTES # (AUTO) 0.5 /CMM (0.1-1.30); MONOCYTES % (AUTO) 7.7 % (2.0-12.0); NEUTROPHILS # (AUTO) 4.2 /CMM (1.8-8.9); NEUTROPHILS % (AUTO) 68.6 % (43.0-81.0); PLATELET COUNT (AUTO) 227 /CMM (150-450); RED BLOOD CELL COUNT(AUTO) 3.31 MIL/uL (4.0-5.2); WHITE BLOOD COUNT (AUTO) 6.2 K/uL (4.3-11.0)
[2020-02-08 04:50] LABS: ALBUMIN 1.7 g/dL (3.4-5.0); BILIRUBIN,TOTAL 0.1 mg/dL (0.2-1.0); CALCIUM, SERUM 8.1 mg/dL (8.5-10.1); CREATININE 0.6 mg/dL (0.6-1.3); MAGNESIUM 2.1 mg/dL (1.8-2.4); PHOSPHORUS 2.4 mg/dL (2.5-4.9); POTASSIUM 3.7 mmol/L (3.5-5.1); TOTAL PROTEIN, SERUM 5.5 g/dL (6.4-8.2)
[2020-02-08] MEDS: HYDROCODONE/APAP 5/325MG TABLET GT PRN (06:49)
[2020-02-08] MEDS: CLONIDINE HCL 0.1 MG TABLET GT PRN ×2 (06:49→22:33)
--- NOTE | 2020-02-08 07:00 | NUR ---
RN NOTES PATIENT ETT AND VENT SETTING HAD NO CHANGES TOLERATED WELL. SATURATION REMAINED >92%.A FEBRILE. NO EPISODE OF SEIZURE NOTED. CONTINUE WITH VERSED DRIP TITRATED ORDERED. HYPERTENSION NOTED SBP WENT UP TO 170'S -180 BUT BRADYCARDIC AT 40'S/ PRN PAIN MEDICINE AND PRN BP MEDS ADMINISTERED ORDERED. KEPT PT CLEAN AND DRY. ALL DUE MEDICINE GIVEN ORDERED. ENDORSED CONTINUITY OF CARE TO AM NURSE.
--- NOTE | 2020-02-08 07:30 | NUR ---
ICU/RN PT IS INTUBATED ON THE VENT AC MODE,FIO2-35%.SAT O2-100%.HR-SINUS BRADYCARDIA 47-50 BPM.AFEBRILE.NO PAIN REPORTED AT THIS TIME.SEDATED WITH VERSED DRIP AT 1.5 MG/HR.LEFT UPPER ARM MIDLINE.IV INFUSING ORDERED.G TUBE INFUSING WITH JEVITY AT 55 ML/HR NO RESIDUAL NOTED.F/C IN PLACE DRAINING WITH YELLOW URINE.PT IS CONTRACTED.LOWER BACK WOUND COVERED WITH MEPILEX.SUCTION PROVIDED.REPOSITION FOR COMFORT.
[2020-02-08] MEDS: LACOSAMIDE 50 MG TABLET GT SCH ×2 (08:29→21:39)
[2020-02-08] MEDS: HYDROCORTISONE SOD SUCCINATE 100 MG/2 ML VIAL IV SCH ×2 (08:29→16:10)
[2020-02-08] MEDS: LEVETIRACETAM SOL (5 ML) 100 MG/ML UDC GT SCH ×2 (08:29→21:40)
[2020-02-08] MEDS: DOCUSATE SODIUM LIQ 100 MG/10 ML UDC GT SCH ×2 (08:29→16:08)
[2020-02-08] MEDS: CYANOCOBALAMIN 100 MCG TABLET GT SCH (08:30)
[2020-02-08] MEDS: PANTOPRAZOLE 40 MG/PACK PACK GT SCH (08:30)
--- NOTE | 2020-02-08 08:30 | NUR ---
ICU/RN VERSED DECREASED TO 1 MG/HR.PER DR ORDER.
[2020-02-08] MEDS: CLOPIDOGREL BISULFATE 75 MG TABLET GT SCH (08:50)
[2020-02-08] MEDS: Z GUARD REMEDY 2 OZ OINT TP PRN (08:51)
[2020-02-08] MEDS: hydrALAZINE HCL 50 MG TABLET PO SCH ×3 (08:52→16:09)
[2020-02-08] MEDS: NITROGLYCERIN 30 GM TUBE TP SCH ×2 (08:52→21:41)
--- NOTE | 2020-02-08 09:40 | NUR ---
ICU/RN DUE MEDS ARE GIVEN ORDERED.PT IS AWAKE ,OPEN EYES.NOT FOLLOWS COMMANDS,CONTRACTED.HX OF CVA. NO SEIZURES ACTIVITIES NOTED.
[2020-02-08] MEDS: NS 0.9% IV PRN ×2 (09:52→22:54)
[2020-02-08] MEDS: MIDAZOLAM HCL IV PRN ×2 (09:52→22:54)
[2020-02-08] MEDS: IV NS 0.9% 1,000 ML IV PRN (12:00)
--- NOTE | 2020-02-08 16:00 | NUR ---
ICU/RN CT OF THE HEAD WITH CONTRAST ORDERED .FAMILY NOTIFIED.CONSENT SIGNED.WAITING FOR BOX CLOSING MACHINE OPERATOR.
[2020-02-08] MEDS ORDERED: K PHOS NEUTRAL 250 MG TABLET PO ONE (16:30)
[2020-02-08] MEDS ORDERED: NEUTRA PHOS 1 POWD.PACKET PO ONE (16:30)
--- NOTE | 2020-02-08 18:10 | NUR ---
ICU/RN PM CARE PROVIDED.WOUND DRESSING DONE ORDERED.DUE MEDS ARE GIVEN ORDERED.PT IS STILL ON 1 MG OF VERSED.IV INFUSING ORDERED.PT IS AWAKE ,OPEN EYES ,NOT FOLLOWS COMMAND.STILL WAITING FOR THE CT OF HEAD.NO SEIZURES ACTIVITY NOTED.V/S STABLE,AFEBRILE.NO PAIN REPORTED AT THIS TIME.REPOSITION FOR COMFORT.
--- NOTE | 2020-02-08 20:10 | NUR ---
RT NOTE PT RECEIVED INTUBATED WITH 7.5 ET TUBE @ 20 CM. MOVED ET TUBE TO MID LIP LINE. AMBU BAG @ HOB. SX DONE, SMALL THICK WHITE SECRETIONS NOTED. ET TUBE SECURED VIA ANCHOR FAST. VENT PLUGGED TO RED OUTLET. ALARMS ON AND AUDIBLE. NO DISTRESS NOTED AT THIS TIME. WILL MONITOR T/O SHIFT. Addendum: 02/08/20 at 2010 by KASIA SORIANO RT Amended: Links added.
--- NOTE | 2020-02-08 20:30 | NUR ---
RN NOTE PT OUT TO CT WITH ACLS DONNELL NURSE AND 2 RT'S. SAFETY MEASURES IN PLACE. AMBU BAG AT BEDSIDE
[2020-02-08] MEDS ORDERED: IOHEXOL-300 100 ML VIAL IV ONE (20:36)
[2020-02-08] MEDS ORDERED: IV NS 0.9% 250 ML IV ONE (20:36)
--- NOTE | 2020-02-08 21:15 | NUR ---
RN NOTE PT BACK IN ROOM FROM CT. TOLERATED PROCEDURE WELL.
[2020-02-08] MEDS: ENOXAPARIN SODIUM 40 MG/0.4 ML DISP.SYRIN SQ SCH (21:43)
--- NOTE | 2020-02-08 22:30 | NUR ---
RN NOTE CATAPRESS GIVEN PER MD ORDER B/P 156/95. WILL CONTINUE TO MONITOR PT.
[2020-02-08] MEDS: LORAZEPAM INJ 2 MG/ML VIAL IV PRN (23:14)
--- NOTE | 2020-02-08 23:15 | NUR ---
RN NOTE PT EYES TWITCHING B/P 161/95 PT HAVING SEIZURE. ATIVAN GIVEN PER MD ORDER.
[2020-02-09] VITALS (47 sets, daily range): BP systolic 110–192; BP diastolic 68–108
[2020-02-09] MEDS: HYDROCODONE/APAP 5/325MG TABLET GT PRN ×2 (00:49→05:42)
[2020-02-09] MEDS: JEVITY 1.2 CAL 1,000 ML BOTTLE GT PRN (00:50)
[2020-02-09] MEDS: IV NS 0.9% 1,000 ML IV PRN ×2 (01:08→13:46)
[2020-02-09 04:08] LABS: BASOPHILS % (AUTO) 0.3 % (0.0-2.0); EOSINOPHILS % (AUTO) 0.6 % (0.0-6.0); HEMATOCRIT 30 % (33-45); HEMOGLOBIN 10.2 g/dL (11.5-14.8); LYMPHOCYTES # (AUTO) 1.5 /CMM (0.8-4.8); LYMPHOCYTES % (AUTO) 21.2 % (20.0-44.0); MEAN CORPUSCULAR HGB CONC 34 g/dl (31.0-36.0); MEAN CORPUSCULAR VOLUME 94 fL (82-100); MONOCYTES # (AUTO) 0.6 /CMM (0.1-1.30); MONOCYTES % (AUTO) 8.8 % (2.0-12.0); NEUTROPHILS # (AUTO) 4.7 /CMM (1.8-8.9); NEUTROPHILS % (AUTO) 69.1 % (43.0-81.0); PLATELET COUNT (AUTO) 249 /CMM (150-450); RED BLOOD CELL COUNT(AUTO) 3.21 MIL/uL (4.0-5.2); WHITE BLOOD COUNT (AUTO) 6.9 K/uL (4.3-11.0)
[2020-02-09 04:31] LABS: CALCIUM, SERUM 8.1 mg/dL (8.5-10.1); CREATININE 0.7 mg/dL (0.6-1.3); MAGNESIUM 2.2 mg/dL (1.8-2.4); PHOSPHORUS 2.7 mg/dL (2.5-4.9); POTASSIUM 3.2 mmol/L (3.5-5.1)
[2020-02-09] MEDS: CLONIDINE HCL 0.1 MG TABLET GT PRN (06:34)
--- NOTE | 2020-02-09 07:11 | NUR ---
RN CLOSING NOTE PT IN BED WITH HOB ELEVATED. CONTINUES ON 1 MG OF VERSED. NS INFUSING AT 75 ML/HR ORDERED.P T IS AWAKE ,OPEN EYES , DOES NOT FOLLOWS COMMAND. ENDORSED CT RESULTS TO AM RN. TUBBS CATH DRAINING CLEAR YELLOW URINE.IV SITES INTACT PATENT AND FLUSHING WELL. ALL NEEDS MED. ENDORSED TO AM RN FOR BARBARA.
--- NOTE | 2020-02-09 08:12 | NUR ---
received pt from maintenance technician 3rd shift, calmly sedated on versed at 1mg, open eyes, follows simple commands at times, no seizure active noted at this point, SR, intubated, sat well, GT to feeding, tolerates well, f/c good output, v/s stable, no pain, CT head negative 02/07.
[2020-02-09] MEDS: CYANOCOBALAMIN 100 MCG TABLET GT SCH (08:21)
[2020-02-09] MEDS: PANTOPRAZOLE 40 MG/PACK PACK GT SCH (08:21)
[2020-02-09] MEDS: LEVETIRACETAM SOL (5 ML) 100 MG/ML UDC GT SCH ×2 (08:21→20:55)
[2020-02-09] MEDS: CLOPIDOGREL BISULFATE 75 MG TABLET GT SCH (08:21)
[2020-02-09] MEDS: HYDROCORTISONE SOD SUCCINATE 100 MG/2 ML VIAL IV SCH ×2 (08:21→16:58)
[2020-02-09] MEDS: DOCUSATE SODIUM LIQ 100 MG/10 ML UDC GT SCH ×2 (08:21→16:58)
[2020-02-09] MEDS: NITROGLYCERIN 30 GM TUBE TP SCH ×2 (08:22→20:57)
[2020-02-09] MEDS: hydrALAZINE HCL 50 MG TABLET PO SCH ×3 (08:22→16:58)
[2020-02-09] MEDS: MIDAZOLAM HCL IV PRN ×2 (09:05→21:06)
[2020-02-09] MEDS: NS 0.9% IV PRN ×2 (09:05→21:06)
[2020-02-09] MEDS: LACOSAMIDE 50 MG TABLET GT SCH ×2 (09:12→20:55)
[2020-02-09] MEDS ORDERED: POTASSIUM CHLORIDE 20 MEQ POWDER PACKET GT ONE (09:30)
[2020-02-09] MEDS ORDERED: NITROGLYCERIN 30 GM TUBE TP SCH (10:00)
[2020-02-09] MEDS ORDERED: AMLODIPINE BESYLATE 5 MG TABLET PO SCH (10:00)
[2020-02-09] MEDS ORDERED: hydrALAZINE HCL 50 MG TABLET PO SCH (10:00)
[2020-02-09] MEDS: AMLODIPINE BESYLATE 5 MG TABLET PO SCH (10:51)
--- NOTE | 2020-02-09 16:44 | NUR ---
pt is resting in the bed, calmly sedated on versed at 1mg/hr, SR, SB, had one episode of seizure in a form of R facial twitching at 1530, neurologist is aware, tolerates feeding, good urine output, v/s stable, no pain, pt cleaned, changed and repositioned.
[2020-02-09] MEDS ORDERED: phenytoin SODIUM IV 1,000 MG in IV NS 0.9% 100 ML IV ONE (17:00)
--- NOTE | 2020-02-09 19:20 | NUR ---
RN OPENING NOTE PT IN BED WITH HOB ELEVATED AWAKE, OPENS EYES, DOES NOT FOLLOW COMMANDS. ON 1 MG OF VERSED, NS INFUSING AT 75 ML/HR ORDERED. CURRENTLY SR ON MONITOR. TOLERATING CURRENT VENT SETTINGS. TUBBS CATH DRAINING BY GRAVITY. G-TUBE PATENT AND INTACT JEVITY 1.2 AT 55 ML/HR. IV SITES INTACT PATENT AND FLUSHING WELL. ISOLATION PRECAUTIONS IN PLACE. SIDE RAILS UP X 2, SAFETY MEASURES IN PLACE, WILL CONTINUE TO MONITOR PT.
[2020-02-09] MEDS: ENOXAPARIN SODIUM 40 MG/0.4 ML DISP.SYRIN SQ SCH (20:59)
[2020-02-09] MEDS: phenytoin SODIUM IV 200 MG in IV NS 0.9% 50 ML IV SCH (21:00)
[2020-02-10] VITALS (43 sets, daily range): BP systolic 120–159; BP diastolic 69–100
[2020-02-10 04:36] LABS: BASOPHILS % (AUTO) 0.2 % (0.0-2.0); EOSINOPHILS % (AUTO) 1.5 % (0.0-6.0); HEMATOCRIT 33 % (33-45); HEMOGLOBIN 11.1 g/dL (11.5-14.8); LYMPHOCYTES # (AUTO) 1.6 /CMM (0.8-4.8); LYMPHOCYTES % (AUTO) 20.3 % (20.0-44.0); MEAN CORPUSCULAR HGB CONC 34 g/dl (31.0-36.0); MEAN CORPUSCULAR VOLUME 94 fL (82-100); MONOCYTES # (AUTO) 0.6 /CMM (0.1-1.30); MONOCYTES % (AUTO) 7.5 % (2.0-12.0); NEUTROPHILS # (AUTO) 5.5 /CMM (1.8-8.9); NEUTROPHILS % (AUTO) 70.5 % (43.0-81.0); PLATELET COUNT (AUTO) 308 /CMM (150-450); RED BLOOD CELL COUNT(AUTO) 3.53 MIL/uL (4.0-5.2); WHITE BLOOD COUNT (AUTO) 7.8 K/uL (4.3-11.0)
[2020-02-10] MEDS: IV NS 0.9% 1,000 ML IV PRN ×2 (05:00→23:21)
[2020-02-10] MEDS: JEVITY 1.2 CAL 1,000 ML BOTTLE GT PRN (05:01)
[2020-02-10 05:10] LABS: CREATININE 0.7 mg/dL (0.6-1.3); MAGNESIUM 2.2 mg/dL (1.8-2.4); PHOSPHORUS 2.2 mg/dL (2.5-4.9); POTASSIUM 3.2 mmol/L (3.5-5.1)
[2020-02-10] MEDS: CLONIDINE HCL 0.1 MG TABLET GT PRN (06:52)
--- NOTE | 2020-02-10 07:24 | NUR ---
WOUND CARE CONSULT: REVIEWED CHART, NURSING DOCUMENTATION AND PHOTOS WHICH SHOW SACRAL SCARRING WHICH EXTENDS TO BUTTOCKS AND INCONTINENCE ASSOCIATED SKIN DAMAGE OVER PREVIOUS SCARRING. SCARRING NOTED TO BE PRESENT ON ADMISSION. PT IS ON FIRST STEP [facility]. ALL SKIN PROTECTION RECOMMENDATIONS DISCUSSED WITH NURSING STAFF. WILL SEE PRN. DIAZ IN AGREEMENT WITH PLAN OF CARE. Addendum: 02/10/20 at 2927 by DACIA MURCIA WNDNU Amended: Links added.
--- NOTE | 2020-02-10 08:24 | NUR ---
received pt from security shift supervisor, calmly sedated on versed at 1mg/hr, follows simple commands at times, SR, intubated, sat well, tolerates feeding, good urine output, v/s stable, no pain, pt turned and repositioned.
[2020-02-10] MEDS: CYANOCOBALAMIN 100 MCG TABLET GT SCH (08:54)
[2020-02-10] MEDS: CLOPIDOGREL BISULFATE 75 MG TABLET GT SCH (08:54)
[2020-02-10] MEDS: LEVETIRACETAM SOL (5 ML) 100 MG/ML UDC GT SCH ×2 (08:54→21:11)
[2020-02-10] MEDS: PANTOPRAZOLE 40 MG/PACK PACK GT SCH (08:54)
[2020-02-10] MEDS: HYDROCORTISONE SOD SUCCINATE 100 MG/2 ML VIAL IV SCH ×2 (08:54→16:36)
[2020-02-10] MEDS: DOCUSATE SODIUM LIQ 100 MG/10 ML UDC GT SCH ×2 (08:54→16:35)
[2020-02-10] MEDS: AMLODIPINE BESYLATE 5 MG TABLET PO SCH (08:56)
[2020-02-10] MEDS: hydrALAZINE HCL 50 MG TABLET PO SCH ×3 (08:56→16:36)
[2020-02-10] MEDS ORDERED: POTASSIUM PHOSPHATE MM 15 MMOL in IV NS 0.9% 250 ML IV SCH (09:00)
[2020-02-10] MEDS: phenytoin SODIUM IV 200 MG in IV NS 0.9% 50 ML IV SCH ×2 (09:12→21:11)
[2020-02-10] MEDS: NITROGLYCERIN 30 GM TUBE TP SCH ×2 (09:16→21:14)
[2020-02-10] MEDS: MIDAZOLAM HCL IV PRN (09:17)
[2020-02-10] MEDS: NS 0.9% IV PRN (09:17)
[2020-02-10] MEDS: LACOSAMIDE 50 MG TABLET GT SCH ×2 (09:35→21:11)
[2020-02-10] MEDS: POTASSIUM PHOSPHATE MM 7.5 MMOL in IV D5W 100 ML IV SCH ×2 (10:19→12:50)
--- NOTE | 2020-02-10 15:00 | NUR ---
off of versed per neurologist to monitor seizure activity.
--- NOTE | 2020-02-10 16:28 | NUR ---
pt is resting in the bed, drowsy, no seizure activity since morning, SR, sat well, off of versed, tolerates feeding, good urine output, v/s stable, no pain, pt cleaned, changed and repositioned.
--- NOTE | 2020-02-10 20:00 | NUR ---
Received patient from day shift resting and open eyes spontaneously to name ,tracking non verbal non interactive. Off versed.Patient on full vent support.Tolerating vent settings well.SR and normotensive.GT feeding in progress with HOB elevated no residual noted.FC to gravity with moderate urine.No distress noted.Turned and repositioned.Will continue to monitor.
[2020-02-10] MEDS: ENOXAPARIN SODIUM 40 MG/0.4 ML DISP.SYRIN SQ SCH (21:14)
[2020-02-11] VITALS (35 sets, daily range): BP systolic 113–164; BP diastolic 63–104
[2020-02-11] MEDS: CLONIDINE HCL 0.1 MG TABLET GT PRN (04:02)
[2020-02-11 04:58] LABS: BASOPHILS % (AUTO) 0.1 % (0.0-2.0); EOSINOPHILS % (AUTO) 1.7 % (0.0-6.0); HEMATOCRIT 38 % (33-45); HEMOGLOBIN 12.4 g/dL (11.5-14.8); LYMPHOCYTES # (AUTO) 1.7 /CMM (0.8-4.8); LYMPHOCYTES % (AUTO) 16.7 % (20.0-44.0); MEAN CORPUSCULAR HGB CONC 33 g/dl (31.0-36.0); MEAN CORPUSCULAR VOLUME 94 fL (82-100); MONOCYTES # (AUTO) 0.6 /CMM (0.1-1.30); MONOCYTES % (AUTO) 6.2 % (2.0-12.0); NEUTROPHILS # (AUTO) 7.8 /CMM (1.8-8.9); NEUTROPHILS % (AUTO) 75.3 % (43.0-81.0); PLATELET COUNT (AUTO) 402 /CMM (150-450); RED BLOOD CELL COUNT(AUTO) 3.98 MIL/uL (4.0-5.2); WHITE BLOOD COUNT (AUTO) 10.3 K/uL (4.3-11.0)
[2020-02-11 05:13] LABS: CALCIUM, SERUM 8.5 mg/dL (8.5-10.1); CREATININE 0.8 mg/dL (0.6-1.3); MAGNESIUM 2.2 mg/dL (1.8-2.4); PHOSPHORUS 2.8 mg/dL (2.5-4.9); POTASSIUM 3.1 mmol/L (3.5-5.1)
[2020-02-11] MEDS: JEVITY 1.2 CAL 1,000 ML BOTTLE GT PRN (05:57)
--- NOTE | 2020-02-11 06:00 | NUR ---
Patient resting in no acute distress.Remains on full vent support tolerating vent settings well. GT feeding well tolerated.VSS.SR.Clonidine PRN for elevated BP administered x 1.Effective.Good urine output.No BM noted.No seizure activity noted during the shift.AM care done.Turned and repositioned.Droplet/contact isolation precaution for Covid 19 maintained.Will endorse to day shift for genoveva.
--- NOTE | 2020-02-11 08:23 | NUR ---
received pt from security shift supervisor, lethargic, follows simple commands at times, SR, intubated, sat well, GT to feeding tolerates well, f/c good output, have had some seizure activities, observed by Dr León today, nevertheless no orders to restart Versed drip, v/s stable, no pain, pt turned and repositioned.
[2020-02-11] MEDS ORDERED: phenytoin SODIUM IV 500 MG in IV NS 0.9% 50 ML IV SCH (09:00)
[2020-02-11] MEDS: DOCUSATE SODIUM LIQ 100 MG/10 ML UDC GT SCH ×2 (09:13→16:30)
[2020-02-11] MEDS: hydrALAZINE HCL 50 MG TABLET PO SCH ×3 (09:14→16:30)
[2020-02-11] MEDS: LEVETIRACETAM SOL (5 ML) 100 MG/ML UDC GT SCH ×2 (09:14→21:31)
[2020-02-11] MEDS: AMLODIPINE BESYLATE 5 MG TABLET PO SCH (09:15)
[2020-02-11] MEDS: LACOSAMIDE 50 MG TABLET GT SCH ×2 (09:15→21:32)
[2020-02-11] MEDS: PANTOPRAZOLE 40 MG/PACK PACK GT SCH (09:15)
[2020-02-11] MEDS: CLOPIDOGREL BISULFATE 75 MG TABLET GT SCH (09:15)
[2020-02-11] MEDS: HYDROCORTISONE SOD SUCCINATE 100 MG/2 ML VIAL IV SCH (09:15)
[2020-02-11] MEDS: CYANOCOBALAMIN 100 MCG TABLET GT SCH (09:16)
[2020-02-11] MEDS: NITROGLYCERIN 30 GM TUBE TP SCH ×2 (09:17→21:35)
[2020-02-11] MEDS: POTASSIUM CHLORIDE 20 MEQ POWDER PACKET GT SCH ×2 (10:36→11:23)
[2020-02-11] MEDS: VALSARTAN 80 MG TABLET PO SCH (12:58)
[2020-02-11] MEDS: IV NS 0.9% 1,000 ML IV PRN (16:25)
--- NOTE | 2020-02-11 16:26 | NUR ---
pt is resting in the bed, lethargic, disoriented, follows simple commands at times, no seizure activity noted, SR, tolerates feeding, f/c good output, v/s stable, no pain, pt cleaned, changed and repositioned.
--- NOTE | 2020-02-11 19:30 | NUR ---
MANGLE CATCHER OPENING NOTES: Rec'd pt in bed, disoriented, opens eyes and is intubated 7.5/20cm at the lip. On mechanical ventilation tolerating settings well. No SOB or respiratory distress noted. On isolation for pos Covid. ROSAURA midline patent and flushed with NS infusing at 75ml/hr. Dressing c/d/i. GT site patent and flushed with no residual noted at this time. GTF Jevity infusing at 55ml/hr, tolerating well. Ron cath in place patent and draining urine via gravity. On neuro checks Q1H. Safety measures in place. Will continue to monitor. Addendum: 02/11/20 at 2018 by ULYSSES VASQUEZ RN SR on tele monitor.
[2020-02-11] MEDS: phenytoin SODIUM IV 300 MG in IV NS 0.9% 50 ML IV SCH (20:00)
[2020-02-11] MEDS: ENOXAPARIN SODIUM 40 MG/0.4 ML DISP.SYRIN SQ SCH (21:32)
--- NOTE | 2020-02-11 22:13 | NUR ---
SHELL TRIM OPERATOR NOTE: 2020: Rec'd call from Dr. Herrera for update on pt. Gave orders for EEG and Dilantin level in am. Attempted to place orders, and unable to find in system. 2209: Called Dr. Alfaro's confectionery cooker to clarify above orders. Spoke w/ Dr. Santoyo who stated "I don't know this pt. Clarify the orders with Dr. Alfaro tomorrow morning." Spoke w/ CN who stated to endorse EEG order to clarify in am and place Dilantin order.
[2020-02-12] VITALS (25 sets, daily range): BP systolic 111–164; BP diastolic 61–112
[2020-02-12] MEDS: JEVITY 1.2 CAL 1,000 ML BOTTLE GT PRN ×2 (01:27→21:30)
[2020-02-12] MEDS: IV NS 0.9% 1,000 ML IV PRN ×2 (03:23→17:40)
[2020-02-12 04:57] LABS: BASOPHILS % (AUTO) 0.2 % (0.0-2.0); EOSINOPHILS % (AUTO) 2.9 % (0.0-6.0); HEMATOCRIT 34 % (33-45); HEMOGLOBIN 11.2 g/dL (11.5-14.8); LYMPHOCYTES # (AUTO) 2.3 /CMM (0.8-4.8); LYMPHOCYTES % (AUTO) 21.7 % (20.0-44.0); MEAN CORPUSCULAR HGB CONC 33 g/dl (31.0-36.0); MEAN CORPUSCULAR VOLUME 94 fL (82-100); MONOCYTES # (AUTO) 0.7 /CMM (0.1-1.30); MONOCYTES % (AUTO) 6.8 % (2.0-12.0); NEUTROPHILS # (AUTO) 7.2 /CMM (1.8-8.9); NEUTROPHILS % (AUTO) 68.4 % (43.0-81.0); PLATELET COUNT (AUTO) 389 /CMM (150-450); RED BLOOD CELL COUNT(AUTO) 3.57 MIL/uL (4.0-5.2); WHITE BLOOD COUNT (AUTO) 10.5 K/uL (4.3-11.0)
[2020-02-12 05:39] LABS: CALCIUM, SERUM 8.3 mg/dL (8.5-10.1); CREATININE 0.8 mg/dL (0.6-1.3); MAGNESIUM 2.2 mg/dL (1.8-2.4); PHOSPHORUS 2.6 mg/dL (2.5-4.9); POTASSIUM 3.5 mmol/L (3.5-5.1)
--- NOTE | 2020-02-12 07:08 | NUR ---
MANAGER OF INFORMATION CLOSING NOTES: Pt remains in stable condition. Remains intubated on mech ventilation, tolerating well. No SOB or respiratory distress noted throughout shift. No acute changes noted throughout shift. Followed simple commands sometimes throughout shift. No seizure activity noted. SR/ST on tele monitor. Tolerating Jevity at 55ml/hr. Ron cath patent and draining urine. Kept clean/dry. All due meds given as ordered. Safety measures in place. Will endorse to AM nurse for BARBARA.
--- NOTE | 2020-02-12 08:10 | NUR ---
CLIENT SUPPORT COORDINATOR OPENING NOTES: RECEIVED PT IN BED. PT IS ALERT AND ORIENTD X0. OPEN AND CLOSES EYES AND WAS INTUBATED 7.5/20cm AT THE LIP SIDE.ON MECHANICAL VENTILATOR AND TOLERATING WELL .No SOB . On isolation for pos Covid. ROSAURA MIDLINE FLUSHING WELL, INTACT WITH NO INFILTRATION WITH NS INFUSING @ 75 ML/HR PT HAS GT OF JEVITY 1.2 @ 55 ML/HR WITH NO RESIDUAL AND TOLERATED WELL. PT HAS TUBBS CATH AND DRAINING WITH GRAVITY. NEURO CHECK Q1. SAFETY MEASUREMENTS ARE IMPLEMENTED BED IS IN THE LOWEST POSITION AND SIDE RAILS X2. WILL CONTINUE TO MONITOR
[2020-02-12] MEDS: DOCUSATE SODIUM LIQ 100 MG/10 ML UDC GT SCH ×2 (08:15→16:53)
[2020-02-12] MEDS: LACOSAMIDE 50 MG TABLET GT SCH ×2 (08:15→20:50)
[2020-02-12] MEDS: CYANOCOBALAMIN 100 MCG TABLET GT SCH (08:16)
[2020-02-12] MEDS: CLOPIDOGREL BISULFATE 75 MG TABLET GT SCH (08:16)
[2020-02-12] MEDS: HYDROCORTISONE SOD SUCCINATE 100 MG/2 ML VIAL IV SCH (08:16)
[2020-02-12] MEDS: PANTOPRAZOLE 40 MG/PACK PACK GT SCH (08:16)
[2020-02-12] MEDS: VALSARTAN 80 MG TABLET PO SCH (08:18)
[2020-02-12] MEDS: NITROGLYCERIN 30 GM TUBE TP SCH ×2 (08:18→20:51)
[2020-02-12] MEDS: hydrALAZINE HCL 50 MG TABLET PO SCH ×3 (08:19→16:53)
[2020-02-12] MEDS: AMLODIPINE BESYLATE 5 MG TABLET PO SCH (08:19)
[2020-02-12] MEDS: LEVETIRACETAM SOL (5 ML) 100 MG/ML UDC GT SCH ×2 (08:21→20:50)
[2020-02-12] MEDS: phenytoin SODIUM IV 300 MG in IV NS 0.9% 50 ML IV SCH (09:00)
--- NOTE | 2020-02-12 09:00 | NUR ---
CORNETIST NOTES PT HAS DILANTIN IV DUE INFORMED DOCTOR OF DILANTIN LEVEL OF 20.1 AND REDUCED THE INFUSING AMOUNT
[2020-02-12] MEDS: phenytoin SODIUM IV 200 MG in IV NS 0.9% 50 ML IV SCH ×2 (11:04→20:03)
--- NOTE | 2020-02-12 18:34 | NUR ---
TRACK REPAIR SUPERVISOR CLOSING NOTES: PT IS IN BED. PT IS ALERT AND ORIENTED X0. OPEN AND CLOSES EYES AND WAS INTUBATED 7.5/20cm AT THE LIP SIDE.ON MECHANICAL VENTILATOR AND TOLERATING WELL .NO SOB OR ACUTE RESPIRATORY DISTRESS NOTED. ON AIRDOP ISOLATION FOR COVID 19. ROSAURA MIDLINE FLUSHING WELL, INTACT WITH NO INFILTRATION WITH NS INFUSING @ 75 ML/HR PT HAS GT OF JEVITY 1.2 @ 55 ML/HR WITH NO RESIDUAL AND TOLERATED WELL. PT HAS TUBBS CATH AND DRAINING WITH GRAVITY. NEURO CHECK Q1.DILANTIN DRIP INFUSIN RAATE WAS REDUCED DUE TO PHENYTOIN LEVEL BEING AT 20.1 H. SAFETY MEASUREMENTS ARE IMPLEMENTED BED IS IN THE LOWEST POSITION AND SIDE RAILS X2. WILL ENDORSE FOR NIGHTSHIFT NURSE FOR BARBARA
--- NOTE | 2020-02-12 19:15 | NUR ---
TEACHER'S AIDE NOTE RECEIVED PATIENT IN BED RESTING WITH HOB ELEVATED. AWAKE, OBTUNDED. VENT DEPENDANT. BREATHING IS EVEN AND NON-LABORED. NO SOB NOTED AT THIS TIME. 02 SAT IS 98% AT THIS TIME. IV SITE ON ROSAURA MIDLINE IS CLEAN, DRY, AND PATENT. IV HYDRATION NS IS RUNNING AT 75 ML/HR. ON GT FEEDING, JEVITY 1.2 RUNNING AT 55 ML/HR WITH 10 ML NOTED RESIDUAL. ON TUBBS CATH, URINE IS CLEAR AND YELLOW IN COLOR. IN NO APPARENT DISTRESS NOTED AT THIS TIME. WILL CONTINUE TO MONITOR.
[2020-02-12] MEDS: ENOXAPARIN SODIUM 40 MG/0.4 ML DISP.SYRIN SQ SCH (20:52)
[2020-02-13] VITALS (38 sets, daily range): BP systolic 101–166; BP diastolic 54–108
--- NOTE | 2020-02-13 01:00 | NUR ---
C ENGINEER NOTE PATIENT IS STABLE AT THIS TIME. NO S/S OF ANY PAIN, NO SOB. WILL CONTINUE TO MONITOR.
[2020-02-13] MEDS: phenytoin SODIUM IV 200 MG in IV NS 0.9% 50 ML IV SCH (02:07)
[2020-02-13] MEDS: CLONIDINE HCL 0.1 MG TABLET GT PRN (03:38)
[2020-02-13 04:41] LABS: BASOPHILS % (AUTO) 0.1 % (0.0-2.0); HEMATOCRIT 35 % (33-45); HEMOGLOBIN 11.4 g/dL (11.5-14.8); LYMPHOCYTES # (AUTO) 1.8 /CMM (0.8-4.8); LYMPHOCYTES % (AUTO) 17.2 % (20.0-44.0); MEAN CORPUSCULAR HGB CONC 33 g/dl (31.0-36.0); MEAN CORPUSCULAR VOLUME 95 fL (82-100); MONOCYTES # (AUTO) 0.6 /CMM (0.1-1.30); MONOCYTES % (AUTO) 5.9 % (2.0-12.0); NEUTROPHILS # (AUTO) 7.5 /CMM (1.8-8.9); NEUTROPHILS % (AUTO) 72.8 % (43.0-81.0); PLATELET COUNT (AUTO) 372 /CMM (150-450); RED BLOOD CELL COUNT(AUTO) 3.64 MIL/uL (4.0-5.2); WHITE BLOOD COUNT (AUTO) 10.3 K/uL (4.3-11.0)
[2020-02-13 05:12] LABS: ALBUMIN 1.8 g/dL (3.4-5.0); BILIRUBIN,TOTAL 0.2 mg/dL (0.2-1.0); CALCIUM, SERUM 8.2 mg/dL (8.5-10.1); CREATININE 0.8 mg/dL (0.6-1.3); MAGNESIUM 2.2 mg/dL (1.8-2.4); PHOSPHORUS 2.5 mg/dL (2.5-4.9); POTASSIUM 3.5 mmol/L (3.5-5.1); TOTAL PROTEIN, SERUM 6.2 g/dL (6.4-8.2)
--- NOTE | 2020-02-13 06:42 | NUR ---
CLAIM ANALYST NOTE PATIENT REMAINED STABLE THROUGHOUT THE NIGHT. NO SIGNIFICANT CHANGES NOTED. DUE MEDS GIVEN ORDERED AND TOLERATED WELL. PATIENT IS KEPT CLEAN, DRY, AND COMFORTABLE. ALL NEEDS ATTENDED AND MET. REPOSITIONED Q2H OR TOLERATED. IN NO APPARENT DISTRESS NOTED AT THIS TIME. WILL ENDORSE TO AM SHIFT RN FOR CONTINUATION OF CARE.
--- NOTE | 2020-02-13 07:10 | NUR ---
RN NOTE RECEIVED PATIENT ORALLY INTUBATED ,EYES ARE OPEN, PT DOES NOT FOLLOW COMMAND, TOLERATING VENT SETTING WELL, ON TELE SR HR IN 70'S, O2 SAT WNL, IV SITE ON ROSAURA MIDLINE IS CLEAN, DRY, AND PATENT. NS AT 75 ML/HR RUNNING , TF JEVITY AT 55CC/HR RUNNING , TUBBS CATH DRINING TO GRAVITY, URINE IS CLEAR AND YELLOW IN COLOR. SR UP x3, CALL LIGHT WITHIN EASY REACH ,BED LOCKED AND IN LOWEST POSITION, CONTINUE TO MONITOR.
[2020-02-13] MEDS: LEVETIRACETAM SOL (5 ML) 100 MG/ML UDC GT SCH ×2 (08:12→21:38)
[2020-02-13] MEDS: DOCUSATE SODIUM LIQ 100 MG/10 ML UDC GT SCH ×2 (08:13→16:28)
[2020-02-13] MEDS: LACOSAMIDE 50 MG TABLET GT SCH ×2 (08:13→21:38)
[2020-02-13] MEDS: PANTOPRAZOLE 40 MG/PACK PACK GT SCH (08:13)
[2020-02-13] MEDS: AMLODIPINE BESYLATE 5 MG TABLET PO SCH (08:14)
[2020-02-13] MEDS: CLOPIDOGREL BISULFATE 75 MG TABLET GT SCH (08:15)
[2020-02-13] MEDS: HYDROCORTISONE SOD SUCCINATE 100 MG/2 ML VIAL IV SCH (08:15)
[2020-02-13] MEDS: hydrALAZINE HCL 50 MG TABLET PO SCH ×3 (08:15→16:28)
[2020-02-13] MEDS: CYANOCOBALAMIN 100 MCG TABLET GT SCH (08:15)
[2020-02-13] MEDS: VALSARTAN 80 MG TABLET PO SCH (08:15)
[2020-02-13] MEDS: NITROGLYCERIN 30 GM TUBE TP SCH ×2 (08:17→21:40)
[2020-02-13] MEDS: PHENYTOIN SUSP UDC 100 MG/4 ML UDC GT SCH ×2 (09:35→17:06)
--- NOTE | 2020-02-13 12:00 | NUR ---
RN NOTES DR CHOCO RIOS REGARDING LOW URINE OUTPUT .
--- NOTE | 2020-02-13 14:47 | NUR ---
RN NOTES FACE TIME DONE WITH PT AND HER FAMILY .
[2020-02-13] MEDS ORDERED: PIPERACILLIN /TAZOBACTAM 3.375 G in IV D5W 50 ML IV SCH (15:30)
[2020-02-13] MEDS: PIPERACILLIN /TAZOBACTAM 3.375 G in IV D5W 100 ML IV SCH (17:06)
--- NOTE | 2020-02-13 18:07 | NUR ---
RN NOTES PT REMAINS INTUBATED, DOES NOT FOLLOW COMMAND, TOLERATING VENT SETTING WELL, VSS STABLE, JEVITY AT 55CC/HR RUNNING , NO TF RESIDUAL NOTED, NS AT 75CC/HR RUNNING , L UPPER ARM MIDLINE SITE CLEAN, DRY AND INTACT, SR UP x3, NO SIGNIFICANT CHANGES NOTED ON THIS SHIFT, WILL ENDORSE TO WIRE SPOOLER NURSE FOR CONTINUITY OF CARE .
[2020-02-13] MEDS: IV NS 0.9% 1,000 ML IV PRN (18:26)
--- NOTE | 2020-02-13 20:00 | NUR ---
JUTE BAG CLIPPER NOTE RECEIVED PATIENT IN BED RESTING WITH HOB ELEVATED. AWAKE, EYES OPEN. VENT DEPENDANT. ON ETT 7.5 AND 20 CM AT LIPLINE VENT SETTING AC 16 TV450 FIO2 35% PEEP 5. BREATHING IS EVEN AND NON-LABORED. NO SOB NOTED AT THIS TIME. 02 SAT IS 98% AT THIS TIME. IV SITE ON ROSAURA MIDLINE IS CLEAN, DRY, AND PATENT. NS IS RUNNING AT 75 ML/HR. ON GT FEEDING, JEVITY 1.2 AT 55 ML/HR. PATENCY CHECKED MINIMAL GAS PRESENT. PT HAS TUBBS CATH, NO APPARENT DISTRESS NOTED AT THIS TIME. WILL CONTINUE TO MONITOR.
[2020-02-13] MEDS: JEVITY 1.2 CAL 1,000 ML BOTTLE GT PRN (21:34)
[2020-02-13] MEDS: ENOXAPARIN SODIUM 40 MG/0.4 ML DISP.SYRIN SQ SCH (21:39)
[2020-02-14] VITALS (39 sets, daily range): BP systolic 90–142; BP diastolic 43–89
[2020-02-14] MEDS: PIPERACILLIN /TAZOBACTAM 3.375 G in IV D5W 100 ML IV SCH ×3 (01:47→17:01)
[2020-02-14] MEDS: PHENYTOIN SUSP UDC 100 MG/4 ML UDC GT SCH ×3 (01:47→21:31)
[2020-02-14 04:26] LABS: BASOPHILS % (AUTO) 0.2 % (0.0-2.0); EOSINOPHILS % (AUTO) 2.8 % (0.0-6.0); HEMATOCRIT 31 % (33-45); HEMOGLOBIN 10.3 g/dL (11.5-14.8); LYMPHOCYTES # (AUTO) 1.4 /CMM (0.8-4.8); LYMPHOCYTES % (AUTO) 11.3 % (20.0-44.0); MEAN CORPUSCULAR HGB CONC 33 g/dl (31.0-36.0); MEAN CORPUSCULAR VOLUME 95 fL (82-100); MONOCYTES # (AUTO) 0.6 /CMM (0.1-1.30); MONOCYTES % (AUTO) 4.5 % (2.0-12.0); NEUTROPHILS # (AUTO) 10.1 /CMM (1.8-8.9); NEUTROPHILS % (AUTO) 81.2 % (43.0-81.0); PLATELET COUNT (AUTO) 375 /CMM (150-450); RED BLOOD CELL COUNT(AUTO) 3.26 MIL/uL (4.0-5.2); WHITE BLOOD COUNT (AUTO) 12.5 K/uL (4.3-11.0)
[2020-02-14 04:38] LABS: CREATININE 0.8 mg/dL (0.6-1.3); MAGNESIUM 2.1 mg/dL (1.8-2.4); PHOSPHORUS 2.5 mg/dL (2.5-4.9); POTASSIUM 3.5 mmol/L (3.5-5.1)
--- NOTE | 2020-02-14 07:04 | NUR ---
RN NOTES PATIENT REMAINED STABLE. NO FACIAL COMPLAIN OF PAIN. AFEBRILE. STRICTLY ON ISOLATION FOR COVID + ISOLATION PRECAUTION ALWAYS MET. ETT AND VENT SETTING REMAINED THE SAME. NO SIGNIFICANT CHANGES THROUGHOUT THE SHIFT. KEPT PT CLEAN AND DRY. GTF TOLERATED WELL. HOB KEPT ELEVATED NO N/V. TURN AND REPOSITION MUCH POSSIBLE. WILL CONTINUE TO MONITOR.
--- NOTE | 2020-02-14 07:10 | NUR ---
VIOLIN MECHANIC NOTE RECEIVED PATIENT ON BED RESTING WITH HOB ELEVATED. AWAKE, EYES OPEN. DOES NOT FOLLOW COMMAND , VENT DEPENDANT. ON ETT 7.5 AND 20 CM AT LIPLINE VENT SETTING , AC 16 TV450 FIO2 35% PEEP 5. BREATHING IS EVEN AND NON-LABORED. NO SOB NOTED AT THIS TIME. O2 SAT WNL, ROSAURA MIDLINE IS CLEAN, DRY, AND PATENT. NS IS RUNNING AT 75 ML/HR. ON GT FEEDING, JEVITY 1.2 AT 55 ML/HR. NO RESIDUAL NOTED, TUBBS DRAINING TO GRAVITY, SR UP x3, CALL LIGHT WITHIN EASY REACH , BED LOCKED AND IN LOWEST POSITION, WILL CONTINUE TO MONITOR.
[2020-02-14] MEDS: IV NS 0.9% 1,000 ML IV PRN (07:48)
--- NOTE | 2020-02-14 08:00 | NUR ---
RT PATIENT REC'D ORALLY INTUBATED ON [facility]. PATIENT PLACED ON SIMV WEANING MODE PER DR LOPES ORDERS. ALARMS CHECKED + AUDIBLE. Addendum: 02/14/20 at 1158 by IBETH GONZALEZ RT Amended: Links added.
[2020-02-14] MEDS: LACOSAMIDE 50 MG TABLET GT SCH ×2 (08:07→21:31)
[2020-02-14] MEDS: DOCUSATE SODIUM LIQ 100 MG/10 ML UDC GT SCH ×2 (08:07→16:33)
[2020-02-14] MEDS: LEVETIRACETAM SOL (5 ML) 100 MG/ML UDC GT SCH ×2 (08:09→21:31)
[2020-02-14] MEDS: hydrALAZINE HCL 50 MG TABLET PO SCH ×3 (08:10→16:34)
[2020-02-14] MEDS: PANTOPRAZOLE 40 MG/PACK PACK GT SCH (08:10)
[2020-02-14] MEDS: VALSARTAN 80 MG TABLET PO SCH (08:10)
[2020-02-14] MEDS: CLOPIDOGREL BISULFATE 75 MG TABLET GT SCH (08:11)
[2020-02-14] MEDS: AMLODIPINE BESYLATE 5 MG TABLET PO SCH (08:11)
[2020-02-14] MEDS: CYANOCOBALAMIN 100 MCG TABLET GT SCH (08:12)
[2020-02-14] MEDS: HYDROCORTISONE SOD SUCCINATE 100 MG/2 ML VIAL IV SCH (08:12)
[2020-02-14] MEDS: NITROGLYCERIN 30 GM TUBE TP SCH ×2 (08:14→21:35)
[2020-02-14 09:00] LABS: ABG BASE EXCESS -0.6 mmol/L; ABG OXYGEN SATURATION 95.5 % (92.0-98.5); ABG PCO2 32.2 mmHg (35.0-45.0); ABG PH 7.465 (7.350-7.450); ABG PO2 76.6 mmHg (75.0-100.0); AaDO2 135.5 mmHg; COHb 0.3 % (0.5-1.5); O2Hb 95.2 % (94.0-97.0); SITE, ABG Right Radial
[2020-02-14] MEDS ORDERED: JEVITY 1.2 CAL 1,000 ML BOTTLE GT PRN (10:00)
--- NOTE | 2020-02-14 11:00 | NUR ---
RN NOTES PT TOLERATING SIMV MODE WELL, O2 SAT WNL, NO RESPIRATORY DISTRESS NOTED, CONTINUE TO MONITOR .
--- NOTE | 2020-02-14 16:59 | NUR ---
RN NOTES DR AJ RIOS REGARDING PHENYTOIN LEVEL 21.1
--- NOTE | 2020-02-14 17:26 | NUR ---
RT PATIENT REMAINS ON SIMV WEANING MODE WITH NO RESP DISTRESS NOTED. WILL REMAIN ON WEANING UNTIL MENTAL STATUS IMPROVES OR DISTRESS OCCURS. Addendum: 02/14/20 at 1727 by IBETH GONZALEZ RT Amended: Links added.
--- NOTE | 2020-02-14 18:24 | NUR ---
RN NOTES PATIENT REMAINED INTUBATED , ON SIMV MODE, O2 SAT WNL, NO RESPIRATORY DISTRESS NOTED STRICTLY ON ISOLATION FOR COVID + ISOLATION PRECAUTION , NO SIGNIFICANT CHANGES NOTED THROUGHOUT THE SHIFT. KEPT PT CLEAN AND DRY. GTF TOLERATED WELL. TURN AND REPOSITION MUCH POSSIBLE. WILL ENDORSE TO ACCESS MANAGER NURSE FOR CONTINUITY OF CARE .
--- NOTE | 2020-02-14 19:20 | NUR ---
RN NOTES RECEIVED PATIENT ON ISOLATION FOR + COVID 19. ON STRICTLY ISOLATION. WITH ETT7.5 AND 20 CM AT LIPLINE VENT SETTING ON SIMV MODE. TOLERATED WELL SATURATION 98%. NO SOB OR RESPIRATORY DISTRESS NOTED. NO EPISODE OF SEIZURE. PT EYES IS OPEN NOT TRACKING UNABLE TO FOLLOW COMMAND. SR ON TELE MONITOR. WITH IV SITE ON ROSAURA MIDLINE INTACT AND PATENT. GTF JEVITY 1.2 @ 55 ML/HR TOLERATED WELL. TUBBS CATH DRAINED WITH [place] COLOR URINE. PT IS CLEAN AND DRY. WILL TURN AND REPOSITION MUCH POSSIBLE.
[2020-02-14] MEDS ORDERED: PHENYTOIN SUSP UDC 100 MG/4 ML UDC GT SCH (21:00)
[2020-02-14] MEDS: ENOXAPARIN SODIUM 40 MG/0.4 ML DISP.SYRIN SQ SCH (21:32)
[2020-02-15] VITALS (25 sets, daily range): BP systolic 100–150; BP diastolic 57–92
[2020-02-15] MEDS: PIPERACILLIN /TAZOBACTAM 3.375 G in IV D5W 100 ML IV SCH ×3 (02:03→17:01)
[2020-02-15 04:46] LABS: BASOPHILS % (AUTO) 0.2 % (0.0-2.0); EOSINOPHILS % (AUTO) 4.2 % (0.0-6.0); HEMATOCRIT 29 % (33-45); HEMOGLOBIN 9.6 g/dL (11.5-14.8); LYMPHOCYTES # (AUTO) 1.8 /CMM (0.8-4.8); LYMPHOCYTES % (AUTO) 15.6 % (20.0-44.0); MEAN CORPUSCULAR HGB CONC 33 g/dl (31.0-36.0); MEAN CORPUSCULAR VOLUME 95 fL (82-100); MONOCYTES # (AUTO) 0.7 /CMM (0.1-1.30); MONOCYTES % (AUTO) 6.3 % (2.0-12.0); NEUTROPHILS # (AUTO) 8.6 /CMM (1.8-8.9); NEUTROPHILS % (AUTO) 73.7 % (43.0-81.0); PLATELET COUNT (AUTO) 399 /CMM (150-450); RED BLOOD CELL COUNT(AUTO) 3.05 MIL/uL (4.0-5.2); WHITE BLOOD COUNT (AUTO) 11.6 K/uL (4.3-11.0)
[2020-02-15 05:13] LABS: ALBUMIN 1.7 g/dL (3.4-5.0); BILIRUBIN,TOTAL 0.2 mg/dL (0.2-1.0); CREATININE 0.8 mg/dL (0.6-1.3); MAGNESIUM 2.2 mg/dL (1.8-2.4); PHOSPHORUS 2.8 mg/dL (2.5-4.9); POTASSIUM 3.5 mmol/L (3.5-5.1); TOTAL PROTEIN, SERUM 5.7 g/dL (6.4-8.2)
--- NOTE | 2020-02-15 07:00 | NUR ---
RN NOTES PATIENT REMAINED STABLE. ETT AND VENT SETTING WITH SIMV MODE TOLERATED WELL. NO EPISODE OF SEIZURE. AFEBRILE. VSS. NO PRESSORS. NO SEDATION NEEDED. ALL DUE MEDICINE TOLERATED WELL WITH HOB ELEVATED. GTF TOLERATED NO RESIDUAL. KEPT PT CLEAN AND DRY. STRICTLY ON ISOLATION DUE TO COVID+. ENDORSED CONTINUITY OF CARE TO AM NURSE.
--- NOTE | 2020-02-15 07:38 | NUR ---
RN OPENING NOTES RECEIVED PATIENT RESTING IN BED. ON MECHANICAL VENT WITH SETTINGS ORDERED. TOLERATING WELL, NO SIGNS OF RESPIRATORY DISTRESS NOTED. O2 SATURATION AT 100%. PATIENT OPENS EYES, UNABLE TO FOLLOW COMMANDS. ON TELE MONITOR WITH SR NOTED, HR IN THE 80S AT THE MOMENT. G TUBE FEEDING RUNNING ORDERED, TOLERATING WELL, NO RESIDUAL NOTED. F/C IS INTACT, PATENT, AND FLUSHED WELL. ROSAURA ML IS INTACT, PATENT, AND FLUSHED WELL. PATIENT SAFETY IS MAINTAINED, CALL LIGHT WITHIN REACH, WILL CONTINUE TO MONITOR CLOSELY.
--- NOTE | 2020-02-15 08:01 | NUR ---
vent changes below for weaning trial per dr. irvin: cpap 5 ps 15 Addendum: 02/15/20 at 0802 by MONIQUE MOSQUEDA RT Amended: Links added.
[2020-02-15] MEDS: LACOSAMIDE 50 MG TABLET GT SCH ×2 (08:47→20:22)
[2020-02-15] MEDS: hydrALAZINE HCL 50 MG TABLET PO SCH ×3 (08:47→17:01)
[2020-02-15] MEDS: DOCUSATE SODIUM LIQ 100 MG/10 ML UDC GT SCH ×2 (08:48→17:01)
[2020-02-15] MEDS: CLOPIDOGREL BISULFATE 75 MG TABLET GT SCH (08:48)
[2020-02-15] MEDS: PHENYTOIN SUSP UDC 100 MG/4 ML UDC GT SCH ×2 (08:48→20:22)
[2020-02-15] MEDS: AMLODIPINE BESYLATE 5 MG TABLET PO SCH (08:49)
[2020-02-15] MEDS: HYDROCORTISONE SOD SUCCINATE 100 MG/2 ML VIAL IV SCH (08:50)
[2020-02-15] MEDS: PANTOPRAZOLE 40 MG/PACK PACK GT SCH (08:50)
[2020-02-15] MEDS: CYANOCOBALAMIN 100 MCG TABLET GT SCH (08:50)
[2020-02-15] MEDS: VALSARTAN 80 MG TABLET PO SCH (08:50)
[2020-02-15] MEDS: LEVETIRACETAM SOL (5 ML) 100 MG/ML UDC GT SCH ×2 (08:50→20:23)
[2020-02-15] MEDS: NITROGLYCERIN 30 GM TUBE TP SCH ×2 (08:57→20:25)
[2020-02-15 09:55] LABS: ABG BASE EXCESS 0.4 mmol/L; ABG OXYGEN SATURATION 97.9 % (92.0-98.5); ABG PCO2 34.4 mmHg (35.0-45.0); ABG PH 7.459 (7.350-7.450); ABG PO2 103.8 mmHg (75.0-100.0); AaDO2 105.8 mmHg; COHb 0.3 % (0.5-1.5); MetHb 0.2 % (0.0-1.5); O2Hb 97.4 % (94.0-97.0); SITE, ABG Right Radial; VENT MODE, BG CPAP 5 / PS 15
--- NOTE | 2020-02-15 14:15 | NUR ---
GAVE PATIENT BACK TO [facility] FOR BARBARA Addendum: 02/15/20 at 1627 by VIVIAN BARBER RN WRONG TIME SHOULD BE 1615
--- NOTE | 2020-02-15 14:39 | NUR ---
RN NOTE ENDORSED PATIENT TO VIVIAN RN FOR CONTINUITY OF CARE. ALL PATIENT NEEDS MET, PATIENT IN STABLE CONDITION, NO ACUTE DISTRESS NOTED. ENDORSED PT FOR BARBARA.
--- NOTE | 2020-02-15 14:40 | NUR ---
RECEIVED REPORT FROM [facility] WINSTON FOR BARBARA.
--- NOTE | 2020-02-15 16:15 | NUR ---
GAVE PATIENT BACK TO [facility] FOR BARBARA
--- NOTE | 2020-02-15 16:19 | NUR ---
RN NOTE RECEIVED PATIENT FROM VIVIAN WINSTON FOR BARBARA.
--- NOTE | 2020-02-15 17:29 | NUR ---
pt. is tolerating well on cpap / ps. Addendum: 02/15/20 at 1729 by MONIQUE MOSQUEDA RT Amended: Links added.
--- NOTE | 2020-02-15 18:30 | NUR ---
RN NOTE DOUBLE CHECKED THE PATIENT WEIGHT USING THE BRITTANI LIFT. PATIENT WEIGHT IS ACCURATE IN THE EMR. PATIENT WEIGHS 207.3LBS. ZEROED OUT THE BED FOR ACCURACY IN FUTURE WEIGHS. LAST BM WAS ON THE 16TH PER I&O INTERVENTIONS. SAFETY MAINTAINED, CALL LIGHT WITHIN REACH, WILL CONTINUE TO MONITOR CLOSELY. STOPPED TUBE FEEDING AT 1830 SO PM NURSE CAN GIVE DILANTIN SCHEDULED FOR 2100. WILL CONTINUE TO MONITOR CLOSELY.
--- NOTE | 2020-02-15 18:52 | NUR ---
RN CLOSING NOTES NO ACUTE CHANGES TO PATIENT CONDITION DURING MY SHIFT. ALL PATIENT NEEDS MET, SAFETY MAINTAINED, CALL LIGHT WITHIN REACH, ENDORSED TO PM NURSE FOR CONTINUITY OF CARE. PLAN OF CARE IS TO CONTINUE WEANING OFF THE VENTILATOR. ENDORSED TO PM NURSE TO HOLD TUBE FEEDING PRIOR TO ADMINISTERING DILANTIN.
--- NOTE | 2020-02-15 19:59 | NUR ---
COATING MANAGER. INITIAL ASSESSMENT. RECEIVED THE PT REST ON THE BED. ORALLY INTUBATED. ETT 7.5,LIP 20 FIO2 35%PT ON CPAP MODE. TOLERATED WELL. SAT 98%. NO ACUTE DISTRESS NOTED. TALLOW PUMPER SHOWING NSR. IV LT UPPER ARM MID LINE. TKO RUNNING. HOB ELEVATED. GT INTACT. JEVITY 1.2 55ML/H.FC PATENT. URINE DRAINING. HOB ELEVATED, AFEBRILE. WILL CONTINUE TO MONITOR VITALS.
[2020-02-15] MEDS: ENOXAPARIN SODIUM 40 MG/0.4 ML DISP.SYRIN SQ SCH (20:24)
[2020-02-15] MEDS: IV NS 0.9% 250 ML IV PRN (23:53)
[2020-02-16] VITALS (24 sets, daily range): BP systolic 101–145; BP diastolic 55–86
[2020-02-16] MEDS: PIPERACILLIN /TAZOBACTAM 3.375 G in IV D5W 100 ML IV SCH ×3 (01:50→18:18)
[2020-02-16] MEDS: JEVITY 1.2 CAL 1,000 ML BOTTLE GT PRN (02:34)
[2020-02-16 04:18] LABS: BASOPHILS % (AUTO) 0.3 % (0.0-2.0); HEMATOCRIT 31 % (33-45); HEMOGLOBIN 10.1 g/dL (11.5-14.8); LYMPHOCYTES # (AUTO) 1.1 /CMM (0.8-4.8); MEAN CORPUSCULAR HGB CONC 33 g/dl (31.0-36.0); MEAN CORPUSCULAR VOLUME 96 fL (82-100); MONOCYTES # (AUTO) 0.6 /CMM (0.1-1.30); MONOCYTES % (AUTO) 7.7 % (2.0-12.0); NEUTROPHILS # (AUTO) 5.8 /CMM (1.8-8.9); PLATELET COUNT (AUTO) 405 /CMM (150-450); WHITE BLOOD COUNT (AUTO) 7.9 K/uL (4.3-11.0)
--- NOTE | 2020-02-16 04:20 | NUR ---
DEVULCANIZER OPERATOR. AM CARE, ORAL CARE, BED BATH GIVEN. LINEN CHANGED. REMAINING SAME VENT SETTING TOLERATED WELL. SAT 0=98%. ABSORPTION OPERATOR SHOWING NSR, LT UPPER ARM MID LINE. TKO RUNNING. AFEBRILE. FC PATENT. URINE DRAINING. DURING SHIFT NO COMPLICATION NOTED. WILL CONTINUE TO MONITOR VITALS
[2020-02-16 04:22] LABS: CALCIUM, SERUM 8.2 mg/dL (8.5-10.1); CREATININE 0.7 mg/dL (0.6-1.3); POTASSIUM 3.4 mmol/L (3.5-5.1)
--- NOTE | 2020-02-16 07:47 | NUR ---
RN OPENING NOTES RECEIVED PATIENT RESTING IN BED. ON MECHANICAL VENT WITH SETTINGS ORDERED. TOLERATING WELL, NO SIGNS OF RESPIRATORY DISTRESS NOTED. O2 SATURATION AT 100%. WILL CONTINUE TO WEAN THE PATIENT OFF THE VENT ORDERED. PATIENT OPENS EYES, UNABLE TO FOLLOW COMMANDS. ON TELE MONITOR WITH SR NOTED, HR IN THE 80S AT THE MOMENT. G TUBE FEEDING PAUSED IN ORDER TO GIVE DILANTIN SCHEDULED FOR 0900. TOLERATING WELL, NO RESIDUAL NOTED. F/C IS INTACT, PATENT, AND DRAINING URINE. ROSAURA ML IS INTACT, PATENT, AND FLUSHED WELL. PATIENT SAFETY IS MAINTAINED, CALL LIGHT WITHIN REACH, WILL CONTINUE TO MONITOR CLOSELY.
--- NOTE | 2020-02-16 08:00 | NUR ---
@ 0800 pt is awake but unable to follow coomands, placed into cool aerosol @ 35% fio2 per dr. irvin. spo2 99% rr 12 hr 86 bpm Addendum: 02/16/20 at 0804 by MONIQUE MOSQUEDA RT Amended: Links added.
[2020-02-16] MEDS: HYDROCORTISONE SOD SUCCINATE 100 MG/2 ML VIAL IV SCH (09:19)
[2020-02-16] MEDS: hydrALAZINE HCL 50 MG TABLET PO SCH ×4 (09:20→16:30)
[2020-02-16] MEDS: PANTOPRAZOLE 40 MG/PACK PACK GT SCH (09:20)
[2020-02-16] MEDS: CYANOCOBALAMIN 100 MCG TABLET GT SCH (09:20)
[2020-02-16] MEDS: PHENYTOIN SUSP UDC 100 MG/4 ML UDC GT SCH ×2 (09:20→21:25)
[2020-02-16] MEDS: DOCUSATE SODIUM LIQ 100 MG/10 ML UDC GT SCH ×2 (09:20→16:30)
[2020-02-16] MEDS: VALSARTAN 80 MG TABLET PO SCH (09:21)
[2020-02-16] MEDS: AMLODIPINE BESYLATE 5 MG TABLET PO SCH (09:21)
[2020-02-16] MEDS: CLOPIDOGREL BISULFATE 75 MG TABLET GT SCH (09:21)
[2020-02-16] MEDS: LEVETIRACETAM SOL (5 ML) 100 MG/ML UDC GT SCH ×2 (09:21→21:24)
[2020-02-16] MEDS: NITROGLYCERIN 30 GM TUBE TP SCH ×2 (09:22→21:27)
[2020-02-16] MEDS: LACOSAMIDE 50 MG TABLET GT SCH ×2 (09:35→21:25)
[2020-02-16 09:48] LABS: ABG BASE EXCESS 0.1 mmol/L; ABG OXYGEN SATURATION 95.7 % (92.0-98.5); ABG PCO2 38.1 mmHg (35.0-45.0); ABG PH 7.423 (7.350-7.450); ABG PO2 78.2 mmHg (75.0-100.0); AaDO2 127.1 mmHg; MetHb 0.1 % (0.0-1.5); O2Hb 95.6 % (94.0-97.0); SITE, ABG Right Radial; VENT MODE, BG 35% fio2 via cool aerosol
[2020-02-16] MEDS ORDERED: POTASSIUM CHLORIDE 20 MEQ POWDER PACKET GT SCH (10:30)
[2020-02-16] MEDS: FUROSEMIDE 40 MG/4 ML VIAL IV SCH ×2 (11:18→13:42)
--- NOTE | 2020-02-16 14:03 | NUR ---
RN NOTE DID NOT ADMINISTER THE HYDRALAZINE DUE TO PATIENT BP DECREASING WHILE IN THE ROOM. UPON RECHECKING THE BP PRIOR TO GIVING THE MEDICATION, PATIENT BP WAS 104/60. DISCARDED THE MEDICATION BECAUSE IT WAS ALREADY CRUSHED. SAFETY MAINTAINED, CALL LIGHT WITHIN REACH, WILL CONTINUE TO MONITOR.
--- NOTE | 2020-02-16 18:53 | NUR ---
RN CLOSING NOTES ALL PATIENT NEEDS MET, NO ACUTE CHANGES TO PATIENT CONDITION DURING MY SHIFT. O2 SATURATION AT 97% AT THE MOMENT, NO SIGNS OF ACUTE RESPIRATORY DISTRESS NOTED. TOLERATING TUBE FEEDING WELL, PAUSED IT SO PM NURSE CAN GIVE DILANTIN SCHEDULED FOR 2100. SAFETY MAINTAINED, CALL LIGHT WITHIN REACH, ENDORSED TO PM NURSE FOR CONTINUITY OF CARE.
--- NOTE | 2020-02-16 19:30 | NUR ---
TANK OPERATOR OPENING NOTES: Rec'd pt in bed, ETT 7.5/20cm at the lip on cool aerosol at 35%. SR on tele monitor. Able to open eyes, but not follow commands. ROSAURA mid w/ TKO infusing. GT site patent and flushed. Jevity on hold at the moment. Minimal residuals noted. Ron cath in place, patent and draining urine via gravity. Safety measures in place. Will continue to monitor.
[2020-02-16] MEDS: ACETAMINOPHEN 650 MG/20.3 ML UDC GT PRN (21:25)
[2020-02-16] MEDS: ENOXAPARIN SODIUM 40 MG/0.4 ML DISP.SYRIN SQ SCH (21:26)
[2020-02-17] VITALS (25 sets, daily range): BP systolic 109–171; BP diastolic 59–90
[2020-02-17] MEDS: JEVITY 1.2 CAL 1,000 ML BOTTLE GT PRN (01:36)
[2020-02-17] MEDS: PIPERACILLIN /TAZOBACTAM 3.375 G in IV D5W 100 ML IV SCH ×2 (02:02→09:33)
[2020-02-17] MEDS: IV NS 0.9% 250 ML IV PRN (03:07)
[2020-02-17 04:02] LABS: BASOPHILS % (AUTO) 0.3 % (0.0-2.0); EOSINOPHILS % (AUTO) 2.8 % (0.0-6.0); HEMATOCRIT 35 % (33-45); HEMOGLOBIN 11.3 g/dL (11.5-14.8); LYMPHOCYTES # (AUTO) 2.2 /CMM (0.8-4.8); LYMPHOCYTES % (AUTO) 21.3 % (20.0-44.0); MEAN CORPUSCULAR HGB CONC 33 g/dl (31.0-36.0); MEAN CORPUSCULAR VOLUME 95 fL (82-100); MONOCYTES # (AUTO) 0.9 /CMM (0.1-1.30); MONOCYTES % (AUTO) 8.2 % (2.0-12.0); NEUTROPHILS # (AUTO) 7.1 /CMM (1.8-8.9); NEUTROPHILS % (AUTO) 67.4 % (43.0-81.0); PLATELET COUNT (AUTO) 513 /CMM (150-450); RED BLOOD CELL COUNT(AUTO) 3.64 MIL/uL (4.0-5.2); WHITE BLOOD COUNT (AUTO) 10.5 K/uL (4.3-11.0)
[2020-02-17 04:13] LABS: ALBUMIN 1.8 g/dL (3.4-5.0); BILIRUBIN,TOTAL 0.2 mg/dL (0.2-1.0); CREATININE 0.8 mg/dL (0.6-1.3); MAGNESIUM 2.3 mg/dL (1.8-2.4); PHOSPHORUS 3.1 mg/dL (2.5-4.9); POTASSIUM 3.3 mmol/L (3.5-5.1); TOTAL PROTEIN, SERUM 6.3 g/dL (6.4-8.2)
--- NOTE | 2020-02-17 06:50 | NUR ---
FLAMER AFTER LASTING CLOSING NOTES: Pt remained stable throughout shift. No SOB or respiratory distress noted throughout shift. No acute changes noted throughout shift. SR On tele monitor. IV lines patent and flushed. Jevity infusing at 55ml/hr. Ron in place draining urine. Kept clean and dry. All meds given as ordered. Safety measures in place. Will endorse to AM nurse for BARBARA.
--- NOTE | 2020-02-17 07:15 | NUR ---
STEAMFITTER NOTES RECEIVED PATIENT OPENS EYES , DOESN'T FOLLOW COMMANDS , NOT IN ACUTE DISTRESS , RESPIRATIONS EVEN AND UNLABORED WITH SPO2 OF 100% VIA COOL AEROSOL @ 35% , ETT 7.5 /[address] , SR 75 ON BEDSIDE MONITOR , GT FEEDING WITH JEVITY @ 55ML/HR TOLERATING WELL , FC DRAINING VIA GRAVITY , ROSAURA MIDLINE WITH NS @ TKO , ALL NEEDS ATTENDED, WILL CONTINUE TO MONITOR
[2020-02-17] MEDS ORDERED: POTASSIUM CHLORIDE 20 MEQ POWDER PACKET GT SCH (08:00)
[2020-02-17] MEDS ORDERED: POTASSIUM CHLORIDE 20 MEQ POWDER PACKET GT ONE (09:00)
--- NOTE | 2020-02-17 09:00 | NUR ---
SAUSAGE WRAPPER NOTES SEEN AND EVALUATED BY DR LOPES, DISCUSSED CHEST XRAY RESULTS , LABS , TOLERATING COOL AEROSOL WITH NO DISTRESS , PT OPENS EYES , DOESN'T FOLLOW COMMANDS , NO SEIZURE ACTIVITY NOTED , VSS , AFEBRILE , MD AWARE , DISCUSSED ETT NEEDS TO BE ADJUSTED , PER MD OK TO PUSH IN 3CM , ORDER CARRIED OUT
[2020-02-17] MEDS: DOCUSATE SODIUM LIQ 100 MG/10 ML UDC GT SCH ×2 (09:14→17:22)
[2020-02-17] MEDS: LEVETIRACETAM SOL (5 ML) 100 MG/ML UDC GT SCH ×2 (09:14→21:43)
[2020-02-17] MEDS: hydrALAZINE HCL 50 MG TABLET PO SCH ×3 (09:14→17:23)
[2020-02-17] MEDS: CLOPIDOGREL BISULFATE 75 MG TABLET GT SCH (09:15)
[2020-02-17] MEDS: VALSARTAN 80 MG TABLET PO SCH (09:15)
[2020-02-17] MEDS: CYANOCOBALAMIN 100 MCG TABLET GT SCH (09:15)
[2020-02-17] MEDS: LACOSAMIDE 50 MG TABLET GT SCH ×2 (09:15→21:44)
[2020-02-17] MEDS: AMLODIPINE BESYLATE 5 MG TABLET PO SCH (09:15)
[2020-02-17] MEDS: PANTOPRAZOLE 40 MG/PACK PACK GT SCH (09:15)
[2020-02-17] MEDS: NITROGLYCERIN 30 GM TUBE TP SCH ×2 (09:16→21:45)
[2020-02-17] MEDS: PHENYTOIN SUSP UDC 100 MG/4 ML UDC GT SCH ×2 (09:16→21:43)
[2020-02-17] MEDS: HYDROCORTISONE SOD SUCCINATE 100 MG/2 ML VIAL IV SCH (09:16)
[2020-02-17] MEDS: FUROSEMIDE 100 MG/10 ML VIAL IV SCH ×3 (09:16→17:22)
--- NOTE | 2020-02-17 09:30 | NUR ---
LABORER/GRADE CHECK NOTES ETT ADJUSTED BY RT , 7.11/20 , NO DISTRESS , TOLERATING COOL AEROSOL WITH SPO2 OF 100%
--- NOTE | 2020-02-17 13:00 | NUR ---
REGIONAL MERCHANDISING MANAGER NOTES SEEN AND EVALUATED BY DR MCGHEE , DISCUSED LABS , CHEST XRAY AND CURRENT VS . PENDING TRACH PLACEMENT , NO SEIZURE ACTIVITY NOTED . MD VERDUGO
--- NOTE | 2020-02-17 14:00 | NUR ---
FURNITURE MECHANIC NOTES DR LOPES SPOKE WITH FAMILY MEMBER ,DISCUSSED PLAN OF CARE , FAMILY AGREED FOR TRACH PLACEMENT
--- NOTE | 2020-02-17 19:14 | NUR ---
GAMEPLAY PROGRAMMER NOTES PCR COVID SWAB LABELED , OBTAINED AND SENT TO LAB
--- NOTE | 2020-02-17 19:30 | NUR ---
BRIDGE OPERATOR OPENING NOTES: Rec'd pt in bed, able to open eyes but does not follow commands. ETT 7.5/25cm at the lip on 35% cool aerosol. No SOB or respiratory distress noted. SR on tele monitor. Jevity currently on hold. Will restart 2 hrs after Dilantin. ROSAURA midline patent and flushed with TKO infusing. Dressing c/d/i. Ron cath in place patent and draining urine. Safety measures in place. Will continue to monitor.
[2020-02-17] MEDS: ENOXAPARIN SODIUM 40 MG/0.4 ML DISP.SYRIN SQ SCH (21:47)
[2020-02-18] VITALS (24 sets, daily range): BP systolic 98–152; BP diastolic 58–90
[2020-02-18 04:44] LABS: BASOPHILS # (AUTO) 0.1 /CMM (0.0-0.2); BASOPHILS % (AUTO) 0.6 % (0.0-2.0); EOSINOPHILS % (AUTO) 3.2 % (0.0-6.0); HEMATOCRIT 35 % (33-45); HEMOGLOBIN 11.2 g/dL (11.5-14.8); LYMPHOCYTES # (AUTO) 2.5 /CMM (0.8-4.8); LYMPHOCYTES % (AUTO) 20.8 % (20.0-44.0); MEAN CORPUSCULAR HGB CONC 32 g/dl (31.0-36.0); MEAN CORPUSCULAR VOLUME 96 fL (82-100); MONOCYTES % (AUTO) 8.6 % (2.0-12.0); NEUTROPHILS # (AUTO) 7.9 /CMM (1.8-8.9); NEUTROPHILS % (AUTO) 66.8 % (43.0-81.0); PLATELET COUNT (AUTO) 431 /CMM (150-450); RED BLOOD CELL COUNT(AUTO) 3.59 MIL/uL (4.0-5.2); WHITE BLOOD COUNT (AUTO) 11.8 K/uL (4.3-11.0)
[2020-02-18 04:50] LABS: ALBUMIN 1.7 g/dL (3.4-5.0); BILIRUBIN,TOTAL 0.2 mg/dL (0.2-1.0); CREATININE 0.8 mg/dL (0.6-1.3); MAGNESIUM 2.4 mg/dL (1.8-2.4); PHOSPHORUS 2.8 mg/dL (2.5-4.9); POTASSIUM 3.1 mmol/L (3.5-5.1); TOTAL PROTEIN, SERUM 6.1 g/dL (6.4-8.2)
[2020-02-18] MEDS: JEVITY 1.2 CAL 1,000 ML BOTTLE GT PRN ×2 (04:56→16:17)
[2020-02-18] MEDS: IV NS 0.9% 250 ML IV PRN (05:20)
--- NOTE | 2020-02-18 06:49 | NUR ---
RESOURCE COORDINATOR CLOSING NOTES: Pt remained stable throughout shift. Continues on 35% cool aerosol, No SOB or resp distress noted throughout shift. No acute changes noted throughout shift. SR/ST on tele monitor. Jevity at 75ml/hr, tolerating well. Kept clean/dry. All meds given as ordered. Safety measures in place. Will endorse to AM nurse for BARBARA.
--- NOTE | 2020-02-18 07:10 | NUR ---
ACCOUNTING MANAGER NOTES RECEIVED PATIENT OPENS EYES , DOESN'T FOLLOW COMMANDS , NOT IN ACUTE DISTRESS , RESPIRATIONS EVEN AND UNLABORED WITH SPO2 OF 100% VIA COOL AEROSOL @ 35% , ETT 7.5 /[address] , SR 92 ON BEDSIDE MONITOR , GT FEEDING WITH JEVITY AT MAX RATE TOLERATING WELL , FC DRAINING VIA GRAVITY , ROSAURA MIDLINE WITH NS @ TKO , ALL NEEDS ATTENDED, WILL CONTINUE TO MONITOR.
--- NOTE | 2020-02-18 07:10 | NUR ---
SOA INTEGRATION DEVELOPER NOTES GT FEEDING OFF PER DIETARY RECOMMENDATION , WILL RESUME GT FEEDING @ 1100
[2020-02-18] MEDS: CYANOCOBALAMIN 100 MCG TABLET GT SCH (08:43)
[2020-02-18] MEDS: HYDROCORTISONE SOD SUCCINATE 100 MG/2 ML VIAL IV SCH (08:43)
[2020-02-18] MEDS: CLOPIDOGREL BISULFATE 75 MG TABLET GT SCH (08:43)
[2020-02-18] MEDS: PHENYTOIN SUSP UDC 100 MG/4 ML UDC GT SCH ×2 (08:43→20:42)
[2020-02-18] MEDS: LEVETIRACETAM (250 MG) 250 MG TABLET PO SCH ×2 (08:43→17:00)
[2020-02-18] MEDS: LACOSAMIDE 50 MG TABLET GT SCH ×2 (08:43→20:43)
[2020-02-18] MEDS: AMLODIPINE BESYLATE 5 MG TABLET PO SCH (08:44)
[2020-02-18] MEDS: DOCUSATE SODIUM LIQ 100 MG/10 ML UDC GT SCH ×2 (08:44→16:17)
[2020-02-18] MEDS: PANTOPRAZOLE 40 MG/PACK PACK GT SCH (08:44)
[2020-02-18] MEDS: VALSARTAN 80 MG TABLET PO SCH (08:44)
[2020-02-18] MEDS: hydrALAZINE HCL 50 MG TABLET PO SCH ×3 (08:45→16:17)
[2020-02-18] MEDS: NITROGLYCERIN 30 GM TUBE TP SCH ×2 (08:45→23:03)
[2020-02-18] MEDS ORDERED: POTASSIUM CHLORIDE 20 MEQ POWDER PACKET GT SCH (09:00)
--- NOTE | 2020-02-18 09:13 | NUR ---
MANAGER UTILIZATION NOTES SEEN AND EVALUATEDBY DR STARK , DISCUSSED PT CURRENT MENTAL STATUS , NO SEIZURE ACTIVITY NOTED , VSS AFEBRILE , PER MD HE ADJUSTED KEPPRA DOSE .
[2020-02-18] MEDS: MEROPENEM 1 G in IV NS 0.9% 100 ML IV SCH ×2 (09:51→16:18)
--- NOTE | 2020-02-18 09:54 | NUR ---
EVP HEAD OF [employer] EXPERIENCE STRATEGY NOTES RECEIVED A CALL FROM LAB , CHARGE NURSE SPOKE WITH RADAMES , NOTIFIED PCR RESULT IS STILL POSITIVE FROM COVID 19 .
--- NOTE | 2020-02-18 10:47 | NUR ---
CLINICAL PSYCHOLOGY TEACHER NOTES SEEN AND EVALUATED BY DR DAS , DISCUSSED LABS , CHEST XRAY AND CURRENT MENTAL STATUS , PT CURRENTLY ON COOL AEROSOL TOLERATING WELL , PCR TEST CAME BACK POSITIVE , GOOD URINE OUTPUT , FAMILY AGREED WITH TRACH MD LOW AWARE
--- NOTE | 2020-02-18 11:00 | NUR ---
CORROSION CONTROL TECHNICIAN NOTES GT FEEDING RESTARTED AT MAX DOSE PER DIETARY RECOMMENDATION , WILL CONTINUE TO MONITOR
--- NOTE | 2020-02-18 13:17 | NUR ---
OVERLOCK ELASTIC ATTACHER NOTES SEEN AND EVALUATED BY DR MCGHEE , DISCUSSED LABS , CHEST XRAY , CURRENT PT MENTAL STATUS AND VS , PT AFEBRILE , NO SEIZURE ACTIVITY , TOLERATING GTF WITH GOOD URINE OUTPUT , PENDING TRACH BUT NO ORDER AND CONSULT YET, AWARE ,
[2020-02-18] MEDS: LORAZEPAM INJ 2 MG/ML VIAL IV PRN (17:01)
--- NOTE | 2020-02-18 17:03 | NUR ---
LINUX UNIX ADMINISTRATOR NOTES ATIVAN 1MG PRN GIVEN PT NOTED BITTING HER TOUNGE NOTED WITH MINIMAL BLEED , PT ON BITE VAUGHN , ATTEMPTED TO PLACE ORAL AIRWAY BUT PT NOTED GAGGING , WILL CONTINUE TO MONITOR
--- NOTE | 2020-02-18 18:50 | NUR ---
ELECTRONIC EQUIPMENT REPAIRER NOTES PATIENT STABLE , NOT IN ACUTE DISTRESS , RESPIRATIONS EVEN AND UNLABORED WITH SPO2 OF 100% VIA COOL AEROSOL @ 35% , ETT 7.5 /[address] , BITE VAUGHN AND ORAL AIRWAY IN PLACE PT BITTING HER TOUNGE , SR 82 ON BEDSIDE MONITOR , GT FEEDING WITH JEVITY WILL HOLD FROM 1900 - 2300 PER DIETARY , FC DRAINING VIA GRAVITY , ROSAURA MIDLINE WITH NS @ TKO , ALL NEEDS ATTENDED, REPORT GIVE TO CHRISTIAN RN FOR CONTINUITY OF CARE
--- NOTE | 2020-02-18 20:29 | NUR ---
RN NOTE RECEIVED PT BED RESTING COMFORTABLY, NON VERBAL, PATIENT IN NO S/SX OF ACUTE DISTRESS AT THIS TIME. PATIENT'S BREATHING IS EVEN AND UNLABORED. PATIENT IS ON ET TUBE CONNECTED TO MECH VENT WITH SETTINGS PRESCRIBED; TOLERATING WELL. PATIENT ON MULTIFOCAL BUTTON INSPECTOR READING SR, HR IS 83. NOTED ROSAURA MID LINE WITH NS AT TKO; PATENT AND FLUSHING WELLT, NO S/S OF INFECTION NOTED. NOTED GTUBE INTACT WITH JEVITY 1.2 RAFFY REGULATED AT 75 ML/HR. RESIDUAL AND PLACEMENT CHECKED. TUBBS CATH CONNECTED TO URINE BAG IN PLACE, DRAINING TO A CLEAR, CARINA URINE, MINIMAL OUTPUT NOTED. DVT PUMPS IN PLACE PRN. NOTED GENERALIZED EDEMA, NON PITTING ON THE LUE, +2 PITTING AT RUE, AND BLE. RADIAL AND PEDAL PULSES ARE PALPABLE. SAFETY MEASURES IMPLEMENTED PER PROTOCOL. PATIENT BED ALARM IS ON. HEAD OF BED ELEVATED. BED IS LOCKED, IN LOWEST POSITION AND SIDE RAILS UP. CALL LIGHT WITHIN REACH OF THE PATIENT. WILL CONTINUE TO MONITOR AND REASSESS FOR ANY CHANGES.
[2020-02-18] MEDS: ENOXAPARIN SODIUM 40 MG/0.4 ML DISP.SYRIN SQ SCH (20:49)
--- NOTE | 2020-02-18 23:00 | NUR ---
TISH NOTE OPALERNA 1.2 FEEDING RESUMED VIA GTUBE AND REGULATED AT 75 ML/HR. GTUBE PLACEMENT AND RESIDUAL CHECKED AND RETURNED LESS THAN 10 ML. ASPIRATION PRECAUTIONS WAS OBSERVED. HEAD OF BED KEPT ELEVATED. WILL CONTINUE TO MONITOR. Addendum: 02/18/20 at 2319 by CHRISTIAN ONOFRE RN ERRATUM: FEEDING FORMULA IS JEVITY 1.2
[2020-02-19] VITALS (24 sets, daily range): BP systolic 98–138; BP diastolic 54–81
[2020-02-19] MEDS: MEROPENEM 1 G in IV NS 0.9% 100 ML IV SCH ×3 (01:28→17:40)
[2020-02-19 04:46] LABS: BASOPHILS % (AUTO) 0.3 % (0.0-2.0); EOSINOPHILS % (AUTO) 4.1 % (0.0-6.0); HEMATOCRIT 36 % (33-45); HEMOGLOBIN 11.7 g/dL (11.5-14.8); LYMPHOCYTES # (AUTO) 1.6 /CMM (0.8-4.8); MEAN CORPUSCULAR HGB CONC 33 g/dl (31.0-36.0); MEAN CORPUSCULAR VOLUME 96 fL (82-100); MONOCYTES # (AUTO) 0.7 /CMM (0.1-1.30); MONOCYTES % (AUTO) 9.9 % (2.0-12.0); NEUTROPHILS # (AUTO) 4.2 /CMM (1.8-8.9); NEUTROPHILS % (AUTO) 61.7 % (43.0-81.0); PLATELET COUNT (AUTO) 511 /CMM (150-450); RED BLOOD CELL COUNT(AUTO) 3.71 MIL/uL (4.0-5.2); WHITE BLOOD COUNT (AUTO) 6.7 K/uL (4.3-11.0)
[2020-02-19 05:07] LABS: CALCIUM, SERUM 8.2 mg/dL (8.5-10.1); CREATININE 0.8 mg/dL (0.6-1.3); MAGNESIUM 2.4 mg/dL (1.8-2.4); PHOSPHORUS 2.8 mg/dL (2.5-4.9); POTASSIUM 3.5 mmol/L (3.5-5.1)
[2020-02-19] MEDS: NITROGLYCERIN 30 GM TUBE TP SCH ×2 (08:36→21:06)
[2020-02-19] MEDS: HYDROCORTISONE SOD SUCCINATE 100 MG/2 ML VIAL IV SCH (08:37)
[2020-02-19] MEDS: VALSARTAN 80 MG TABLET PO SCH (08:37)
[2020-02-19] MEDS: CYANOCOBALAMIN 100 MCG TABLET GT SCH (08:37)
[2020-02-19] MEDS: DOCUSATE SODIUM LIQ 100 MG/10 ML UDC GT SCH ×2 (08:37→17:40)
[2020-02-19] MEDS: PANTOPRAZOLE 40 MG/PACK PACK GT SCH (08:37)
[2020-02-19] MEDS: AMLODIPINE BESYLATE 5 MG TABLET PO SCH (08:37)
[2020-02-19] MEDS: LEVETIRACETAM (250 MG) 250 MG TABLET PO SCH ×2 (08:38→17:40)
[2020-02-19] MEDS: CLOPIDOGREL BISULFATE 75 MG TABLET GT SCH (08:39)
[2020-02-19] MEDS: hydrALAZINE HCL 50 MG TABLET PO SCH ×3 (08:41→17:41)
[2020-02-19] MEDS: LACOSAMIDE 50 MG TABLET PO SCH ×2 (08:55→21:04)
[2020-02-19] MEDS: PHENYTOIN SUSP UDC 100 MG/4 ML UDC GT SCH ×2 (08:55→21:00)
[2020-02-19] MEDS ORDERED: LACOSAMIDE 50 MG TABLET PO SCH (09:00)
[2020-02-19] MEDS: PROSOURCE / PROSTAT (PYXIS) 30 ML UDC GT SCH (12:41)
--- NOTE | 2020-02-19 18:30 | NUR ---
TUBING TESTER Closing ETT attached to cool aerosol 35%FiO2, 8L, no SOB or desaturations noted throughout shift. No seizures witnessed. Patient remains obtunded, opens eyes sometimes. PEG tube intact, feedings on/off as ordered, no residuals. Ron drained 350mL urine today. Wound care as ordered, turned per protocol. ROSAURA midline intact, NS@TKO. Family zoomed with patient today, want to speak to surgeon before trach placement Addendum: 02/19/20 at 1833 by PARISH MARTINEZ RN aspiration & seizure precautions observed at all times
--- NOTE | 2020-02-19 19:30 | NUR ---
RN NOTES RECEIVED PATIENT IN BED OBTUNDED ON COOL AEROSOL FIO2 35%8L/MIN SATURATING 99%. TELE MONITOR SR IN 90'S. ON GTF JEVITY 1.2 RUNNING AT 75ML/HR TOLERATING WELL NO RESIDUAL NOTED OFF AT 1900 ORDERED. HOB ELEVATED. ROSAURA MIDLINE INTACT FLUSHES WELL. F/C INTACT URINE RUNNING TO GRAVITY. SAFETY MEASURES IN PLACE, SIDE RAILS UP, CALL LIGHT WITHIN REACH. WILL CONT TO MONITOR FOR BARBARA.
[2020-02-19] MEDS: ENOXAPARIN SODIUM 40 MG/0.4 ML DISP.SYRIN SQ SCH (20:52)
--- NOTE | 2020-02-19 22:00 | NUR ---
HOLLY BERRY CALLED AND CANCEL THE PROCEDURE FOR TOMORROW.
[2020-02-19] MEDS: JEVITY 1.2 CAL 1,000 ML BOTTLE GT PRN (23:57)
[2020-02-20] VITALS (24 sets, daily range): BP systolic 99–162; BP diastolic 50–97
[2020-02-20] MEDS: MEROPENEM 1 G in IV NS 0.9% 100 ML IV SCH ×3 (01:16→16:17)
[2020-02-20 04:11] LABS: BASOPHILS % (AUTO) 0.5 % (0.0-2.0); EOSINOPHILS % (AUTO) 3.7 % (0.0-6.0); HEMATOCRIT 33 % (33-45); HEMOGLOBIN 10.9 g/dL (11.5-14.8); LYMPHOCYTES # (AUTO) 1.7 /CMM (0.8-4.8); LYMPHOCYTES % (AUTO) 21.9 % (20.0-44.0); MEAN CORPUSCULAR HGB CONC 33 g/dl (31.0-36.0); MEAN CORPUSCULAR VOLUME 96 fL (82-100); MONOCYTES # (AUTO) 0.7 /CMM (0.1-1.30); MONOCYTES % (AUTO) 9.5 % (2.0-12.0); NEUTROPHILS % (AUTO) 64.4 % (43.0-81.0); PLATELET COUNT (AUTO) 532 /CMM (150-450); RED BLOOD CELL COUNT(AUTO) 3.44 MIL/uL (4.0-5.2); WHITE BLOOD COUNT (AUTO) 7.8 K/uL (4.3-11.0)
[2020-02-20 04:24] LABS: CALCIUM, SERUM 8.3 mg/dL (8.5-10.1); CREATININE 0.9 mg/dL (0.6-1.3); MAGNESIUM 2.4 mg/dL (1.8-2.4); PHOSPHORUS 2.9 mg/dL (2.5-4.9); POTASSIUM 3.8 mmol/L (3.5-5.1)
--- NOTE | 2020-02-20 06:25 | NUR ---
ASSOCIATE TECHNICIAN. RADIOLOGIST CALLED FOR CRITICAL RESULT .CHEST X RAY SHOWING AORTIC ANEURYSM CONSIDER, FOLLOW UP WITH CT. RESULT NOTIFIED MD FELDMAN.
--- NOTE | 2020-02-20 06:36 | NUR ---
RN NOTES RECEIVED PATIENT IN BED OBTUNDED ON COOL AEROSOL FIO2 35%8L/MIN SR ON TELE MONITOR. NO S/S OF ACUTE DISTRESS NOTED, BREATHING EVEN ND NON LABORED. ON GTF JEVITY 1.2 RUNNING AT 75ML/HR TOLERATING WELL NO RESIDUAL HOB ELEVATED. ROSAURA MIDLINE INTACT FLUSHES WELL. F/C INTACT URINE RUNNING TO GRAVITY. SAFETY MEASURES IN PLACE, SIDE RAILS UP, CALL LIGHT WITHIN REACH. WILL ENDORSE TO AM NURSE FOR BARBARA. Addendum: 02/20/20 at 0644 by TARUN DEVINE RN PATIENT RESTED COMFORTABLY IN BED NO S/S OF DISTRESS NOTED.
--- NOTE | 2020-02-20 07:45 | NUR ---
ICU/RN PT IS INTUBATED ON T-TUBE FIO2-35%,SAT O2-98%.V/S STABLE,AFEBRILE.NO PAIN REPORTED AT THIS TIME .NO SEIZURE ACTIVITIES NOTED.PT OPEN HER EYES ON PAIN STIMULATION.LEFT ARM MIDLINE.G-TUBE INFUSING WITH JEVITY AT 75 ML/HR. NO RESIDUAL NOTED.F/C DRAINING WITH YELLOW URINE. SUCTION PROVIDED REPOSITION FOR COMFORT.LABS REVIEW.CHEST X-RAY DONE AND REVIEW..PT HAS AORTIC ANEURISM .DR TONY NOTIFIED.
[2020-02-20] MEDS: CLOPIDOGREL BISULFATE 75 MG TABLET GT SCH (07:49)
[2020-02-20] MEDS: IV NS 0.9% 250 ML IV PRN (07:57)
[2020-02-20] MEDS: JEVITY 1.2 CAL 1,000 ML BOTTLE GT PRN (07:59)
[2020-02-20] MEDS: PROSOURCE / PROSTAT (PYXIS) 30 ML UDC GT SCH (08:01)
[2020-02-20] MEDS: PHENYTOIN SUSP UDC 100 MG/4 ML UDC GT SCH ×2 (08:07→21:12)
[2020-02-20] MEDS: DOCUSATE SODIUM LIQ 100 MG/10 ML UDC GT SCH ×2 (08:08→16:17)
[2020-02-20] MEDS: HYDROCORTISONE SOD SUCCINATE 100 MG/2 ML VIAL IV SCH (08:08)
[2020-02-20] MEDS: PANTOPRAZOLE 40 MG/PACK PACK GT SCH (08:08)
[2020-02-20] MEDS: hydrALAZINE HCL 50 MG TABLET PO SCH ×3 (08:09→16:18)
[2020-02-20] MEDS: LACOSAMIDE 50 MG TABLET PO SCH ×2 (08:09→21:12)
[2020-02-20] MEDS: VALSARTAN 80 MG TABLET PO SCH (08:09)
[2020-02-20] MEDS: AMLODIPINE BESYLATE 5 MG TABLET PO SCH (08:10)
[2020-02-20] MEDS: CYANOCOBALAMIN 100 MCG TABLET GT SCH (08:11)
[2020-02-20] MEDS: NITROGLYCERIN 30 GM TUBE TP SCH ×2 (08:12→21:27)
[2020-02-20] MEDS: LEVETIRACETAM (250 MG) 250 MG TABLET PO SCH ×2 (09:13→17:25)
--- NOTE | 2020-02-20 09:30 | NUR ---
ICU/RN DUE MEDS ARE GIVEN ORDERED.DR APONTE SEEN THE PT AND ORDERED CT PULMONARY ANGIOGRAM .FAMILY NOTIFIED ,CONSENT OVER THE PHONE SIGN.DR TONY CANCELLED THE PROCEDURE .PT SUPPOSED TO GO FOR THE TRACH PLACEMENT THIS MORNING.PT IS ON THE PLAVIX ,NEED TO BE HOLD FOR THE 5 DAYS.SURGERY RESCHEDULE.CONTINUE MONITORING.
[2020-02-20] MEDS ORDERED: IOHEXOL-350 100 ML VIAL IV ONE (10:03)
[2020-02-20] MEDS ORDERED: IV NS 0.9% 250 ML IV ONE (10:03)
[2020-02-20] MEDS ORDERED: CT SWABBABLE VALVE TRANS SET 1 EA INFUS.SET MC ONE (10:04)
[2020-02-20] MEDS: IV 1/2NS 1000 ML 1,000 ML IV PRN (15:04)
[2020-02-20] MEDS: Z GUARD REMEDY 2 OZ OINT TP PRN (17:25)
--- NOTE | 2020-02-20 18:00 | NUR ---
ICU/RN PM CARE PROVIDED.WOUND DRESSING DONE ORDERED.DUE MEDS ARE GIVEN ORDERED.SUCTION PROVIDED.REPOSITION FOR COMFORT.CONTINUE MONITORING.
--- NOTE | 2020-02-20 19:30 | NUR ---
RN NOTES RECEIVED PATIENT IN BED INTUBATED OPEN HER EYES DOES NOT FOLLOW COMMANDS. CONTINUES ON COOL AEROSOL FIO2-35%, SATURATING WELL 99-98%. NO S/S OF DISTRESS NOTED. VITAL SIGNS WNL. GTF JEVITY 1.2 RUNNING AT 75ML/HR TOLERATING WELL NO RESIDUAL NOTED. HOB ELEVATED. GTF IS OFF PRIOR TO DILANTIN ORDERED. ROSAURA MIDLINE INTACT PATENT FLUSHES WELL. F/C INTACT YELLOW URINE RUNNING TO GRAVITY. SAFETY MEASURES IN PLACE, CALL LIGHT WITHIN REACH. WILL CONT TO MONITOR FOR BARBARA.
[2020-02-20] MEDS: ENOXAPARIN SODIUM 40 MG/0.4 ML DISP.SYRIN SQ SCH (21:13)
[2020-02-21] VITALS (25 sets, daily range): BP systolic 2–146; BP diastolic 55–79
[2020-02-21 04:15] LABS: BASOPHILS % (AUTO) 0.5 % (0.0-2.0); EOSINOPHILS % (AUTO) 4.5 % (0.0-6.0); HEMATOCRIT 35 % (33-45); HEMOGLOBIN 11.4 g/dL (11.5-14.8); LYMPHOCYTES # (AUTO) 2.8 /CMM (0.8-4.8); LYMPHOCYTES % (AUTO) 36.4 % (20.0-44.0); MEAN CORPUSCULAR HGB CONC 33 g/dl (31.0-36.0); MEAN CORPUSCULAR VOLUME 96 fL (82-100); MONOCYTES # (AUTO) 0.7 /CMM (0.1-1.30); MONOCYTES % (AUTO) 9.8 % (2.0-12.0); NEUTROPHILS # (AUTO) 3.7 /CMM (1.8-8.9); NEUTROPHILS % (AUTO) 48.8 % (43.0-81.0); PLATELET COUNT (AUTO) 529 /CMM (150-450); RED BLOOD CELL COUNT(AUTO) 3.66 MIL/uL (4.0-5.2); WHITE BLOOD COUNT (AUTO) 7.6 K/uL (4.3-11.0)
[2020-02-21 04:21] LABS: CALCIUM, SERUM 8.1 mg/dL (8.5-10.1); CREATININE 0.8 mg/dL (0.6-1.3); POTASSIUM 3.7 mmol/L (3.5-5.1)
[2020-02-21] MEDS: IV 1/2NS 1000 ML 1,000 ML IV PRN (04:26)
[2020-02-21] MEDS: JEVITY 1.2 CAL 1,000 ML BOTTLE GT PRN ×2 (05:06→22:15)
--- NOTE | 2020-02-21 07:15 | NUR ---
RN NOTES NO CHANGES NOTED DURING SHIFT. NO S/S OF ACUTE DISTRESS NOTED. MEDICATION WERE GIVEN ORDERED TOLERATED WELL. BED BATH GIVEN, WOUND TREATMENT DONE ORDERED. TURNING REPOSITIONING PER PROTOCOL. IV'S INTACT PATENT FLUID IS RUNNING WELL. GTF RUNNING WELL NO RESIDUAL NOTED. F/C INTACT URINE RUNNING TO GRAVITY. SUCTION PROVIDED. ENDORSE TO AM NURSE FOR BARBARA.
--- NOTE | 2020-02-21 07:45 | NUR ---
ICU/RN PT IS INTUBATED ON THE COOL AEROSOL ,FIO2-35%,SAT O2-97%.V/S STABLE,AFEBRILE.NO PAIN REPORTED ATT HIS TIME.NO SEIZURES ACTIVITIES NOTED.LEFT UPPER ARM MID LINE INFUSING WITH IV ORDERED.G-TUBE INFUSING WITH JEVITY AT 75 ML/HR NO RESIDUAL NOTED.F/C DRAINING WITH MINIMAL AMOUNT OF CARINA URINE.SACRAL WOUND COVERED WITH MEPILEX .GENERALIZED EDEMA PRESENT.SUCTION PROVIDED.REPOSITION FOR COMFORT.
[2020-02-21] MEDS: AMLODIPINE BESYLATE 5 MG TABLET PO SCH (08:05)
[2020-02-21] MEDS: HYDROCORTISONE SOD SUCCINATE 100 MG/2 ML VIAL IV SCH (08:05)
[2020-02-21] MEDS: DOCUSATE SODIUM LIQ 100 MG/10 ML UDC GT SCH ×2 (08:05→16:34)
[2020-02-21] MEDS: PANTOPRAZOLE 40 MG/PACK PACK GT SCH (08:05)
[2020-02-21] MEDS: PHENYTOIN SUSP UDC 100 MG/4 ML UDC GT SCH (08:05)
[2020-02-21] MEDS: LACOSAMIDE 50 MG TABLET PO SCH ×2 (08:06→21:52)
[2020-02-21] MEDS: LEVETIRACETAM (250 MG) 250 MG TABLET PO SCH ×2 (08:06→18:22)
[2020-02-21] MEDS: VALSARTAN 80 MG TABLET PO SCH (08:06)
[2020-02-21] MEDS: PROSOURCE / PROSTAT (PYXIS) 30 ML UDC GT SCH (08:06)
[2020-02-21] MEDS: CYANOCOBALAMIN 100 MCG TABLET GT SCH (08:07)
[2020-02-21] MEDS: Z GUARD REMEDY 2 OZ OINT TP PRN (08:08)
[2020-02-21] MEDS: hydrALAZINE HCL 50 MG TABLET PO SCH ×3 (08:11→16:33)
[2020-02-21] MEDS: NITROGLYCERIN 30 GM TUBE TP SCH ×2 (08:11→22:06)
--- NOTE | 2020-02-21 16:58 | NUR ---
ICU/RN DILANTIN LEVEL 28.4. MD NOTIFIED.NEW ORDERS RECEIVED.
--- NOTE | 2020-02-21 18:00 | NUR ---
ICU/RN PM CARE PROVIDED.WOUND DRESSING DONE ORDERED.DUE MEDS ARE GIVEN .SUCTION PROVIDED.REPOSITION FOR COMFORT.V/S STABLE ,AFEBRILE.NO PAIN REPORTED AT THIS TIME.NO SEIZURES ACTIVITIES NOTED.
--- NOTE | 2020-02-21 19:30 | NUR ---
RN NOTES RECEIVED PATIENT ON ISOLATION FOR + COVID 19 X 3 ABLE TO OPEN EYES BUT DOES NOT FOLLOW COMMANDS. WITH ETT 7.5 POSITION AT 25 CM AT LIP LINE CONNECTED TO COOL AEROSOL W/ 02 8LPM AND FIO2-35%, SATURATING WELL 98%. NO ACUTE RESPIRATORY DISTRESS. NO EPISODE OF SEIZURE, GTF JEVITY 1.2 AT 75ML/HR TOLERATING WELL W/ HOB ELEVATED, NO RESIDUAL NOTED. IV SITE ON ROSAURA MIDLINE W/ TKO RUNNING. F/C INTACT W/ YELLOW URINE RUNNING TO GRAVITY. SAFETY MEASURES IN PLACE WILL CLOSELY MONITOR.
[2020-02-21] MEDS: ENOXAPARIN SODIUM 40 MG/0.4 ML DISP.SYRIN SQ SCH (22:09)
[2020-02-22] VITALS (23 sets, daily range): BP systolic 95–135; BP diastolic 58–84
[2020-02-22 04:00] LABS: BASOPHILS % (AUTO) 0.6 % (0.0-2.0); EOSINOPHILS % (AUTO) 3.9 % (0.0-6.0); HEMATOCRIT 31 % (33-45); HEMOGLOBIN 10.2 g/dL (11.5-14.8); LYMPHOCYTES # (AUTO) 2.4 /CMM (0.8-4.8); LYMPHOCYTES % (AUTO) 35.5 % (20.0-44.0); MEAN CORPUSCULAR HGB CONC 33 g/dl (31.0-36.0); MEAN CORPUSCULAR VOLUME 96 fL (82-100); MONOCYTES # (AUTO) 0.6 /CMM (0.1-1.30); MONOCYTES % (AUTO) 8.4 % (2.0-12.0); NEUTROPHILS # (AUTO) 3.5 /CMM (1.8-8.9); NEUTROPHILS % (AUTO) 51.6 % (43.0-81.0); PLATELET COUNT (AUTO) 457 /CMM (150-450); RED BLOOD CELL COUNT(AUTO) 3.23 MIL/uL (4.0-5.2); WHITE BLOOD COUNT (AUTO) 6.8 K/uL (4.3-11.0)
[2020-02-22 04:13] LABS: ALBUMIN 1.6 g/dL (3.4-5.0); BILIRUBIN,TOTAL 0.2 mg/dL (0.2-1.0); CALCIUM, SERUM 7.9 mg/dL (8.5-10.1); CREATININE 0.7 mg/dL (0.6-1.3); MAGNESIUM 2.3 mg/dL (1.8-2.4); TOTAL PROTEIN, SERUM 5.6 g/dL (6.4-8.2)
--- NOTE | 2020-02-22 07:00 | NUR ---
RN NOTES PATIENT REMAINED STABLE. ETT ON COOL AEROSOL TOLERATED WELL. AFEBRILE. VSS. INCONTINENT CARE RENDERED. NO EPISODE OF SEIZURE CONTINUE ON ISOLATION PRECAUTION DUE TO COVID 19 +. ISOLATION PRECAUTION ALWAYS MET. NO SOB, GT AND TUBBS CATH INTACT AND PATENT. KEPT PT CLEAN AND DRY. TURNED AND REPOSITIONED Q2H AND PRN. ENDORSED CONTINUITY OF CARE TO AM NURSE.
--- NOTE | 2020-02-22 07:30 | NUR ---
DAIRY HUSBANDMAN INITIAL NOTE RECEIVED PATIENT OBTUNDED, NO S/S OF PAIN OR DISCOMFORT. NO RESPIRATORY DISTRESS NOTED, ETT IN PLACE ON COOL AEROSOL 8LPM, 35%. ON TELE MONITOR SR. GT PATENT, INTACT, IN PLACE, NO RESIDUAL NOTED. BUE AND BLE FLACCID. F/C PATENT AND DRAINING BY GRAVITY. ISOLATION PRECAUTIONS OBSERVED. HOB ELEVATED. SIDE RAILS UP AND LOCKED. BED KEPT AT LOWEST POSITION. WILL CONTINUE TO MONITOR.
[2020-02-22] MEDS: FUROSEMIDE 40 MG/4 ML VIAL IV SCH ×3 (07:57→16:18)
[2020-02-22] MEDS: LACOSAMIDE 50 MG TABLET PO SCH ×2 (08:56→21:48)
[2020-02-22] MEDS: DOCUSATE SODIUM LIQ 100 MG/10 ML UDC GT SCH ×2 (08:56→17:54)
[2020-02-22] MEDS: VALSARTAN 80 MG TABLET PO SCH (08:57)
[2020-02-22] MEDS: AMLODIPINE BESYLATE 5 MG TABLET PO SCH (08:57)
[2020-02-22] MEDS: PANTOPRAZOLE 40 MG/PACK PACK GT SCH (08:57)
[2020-02-22] MEDS: PHENYTOIN SUSP UDC 100 MG/4 ML UDC GT SCH ×2 (08:57→21:44)
[2020-02-22] MEDS: CYANOCOBALAMIN 100 MCG TABLET GT SCH (08:57)
[2020-02-22] MEDS: hydrALAZINE HCL 50 MG TABLET PO SCH ×3 (08:57→17:58)
[2020-02-22] MEDS: PROSOURCE / PROSTAT (PYXIS) 30 ML UDC GT SCH (08:58)
[2020-02-22] MEDS: LEVETIRACETAM (250 MG) 250 MG TABLET PO SCH ×2 (08:58→17:54)
[2020-02-22] MEDS: JEVITY 1.2 CAL 1,000 ML BOTTLE GT PRN (12:20)
[2020-02-22] MEDS: METOPROLOL TARTRATE 50 MG TABLET PO SCH ×2 (12:20→17:58)
--- NOTE | 2020-02-22 19:50 | NUR ---
RN NOTES PATIENT ON WITH ETT 7.5 POSITION AT 25 CM AT LIP LINE CONNECTED TO COOL AEROSOL W/ 02 8LPM AND FIO2-35%, SATURATING WELL 98%. ISOLATION FOR + COVID 19 STRICTLY OBSERVED. OPENS EYES NOT FOLLOWING COMMANDS. WITH ETT 7.5 POSITION AT 25 CM AT LIP LINE CONNECTED TO COOL AEROSOL W/ 02 8LPM AND FIO2-35%, SATURATING WELL 98%. + GAG REFLEX, SUCTIONED WITH WHITE THIN SECRETION. NO ACUTE RESPIRATORY DISTRESS. NO EPISODE OF SEIZURE, GTF JEVITY 1.2 AT 75ML/HR TOLERATING WELL, HOB KEPT ELEVATED, WITH MINIMUM RESIDUAL NOTED. IV SITE ON ROSAURA MIDLINE W/ GOOD BLD. RETURN, TKO RUNNING. F/C INTACT W/ YELLOW COLOR URINE VIA GRAVITY. SAFETY MEASURES IN PLACE WILL CLOSELY MONITOR.
[2020-02-22] MEDS: ENOXAPARIN SODIUM 40 MG/0.4 ML DISP.SYRIN SQ SCH (21:45)
[2020-02-23] VITALS (25 sets, daily range): BP systolic 94–130; BP diastolic 55–79
[2020-02-23] MEDS: METOPROLOL TARTRATE 50 MG TABLET PO SCH ×4 (00:50→17:34)
[2020-02-23 03:55] LABS: BASOPHILS % (AUTO) 0.6 % (0.0-2.0); EOSINOPHILS % (AUTO) 5.1 % (0.0-6.0); HEMATOCRIT 34 % (33-45); HEMOGLOBIN 11.1 g/dL (11.5-14.8); LYMPHOCYTES # (AUTO) 2.5 /CMM (0.8-4.8); LYMPHOCYTES % (AUTO) 32.8 % (20.0-44.0); MEAN CORPUSCULAR HGB CONC 33 g/dl (31.0-36.0); MEAN CORPUSCULAR VOLUME 96 fL (82-100); MONOCYTES # (AUTO) 0.5 /CMM (0.1-1.30); MONOCYTES % (AUTO) 7.3 % (2.0-12.0); NEUTROPHILS # (AUTO) 4.1 /CMM (1.8-8.9); NEUTROPHILS % (AUTO) 54.2 % (43.0-81.0); PLATELET COUNT (AUTO) 469 /CMM (150-450); RED BLOOD CELL COUNT(AUTO) 3.49 MIL/uL (4.0-5.2); WHITE BLOOD COUNT (AUTO) 7.5 K/uL (4.3-11.0)
[2020-02-23 04:09] LABS: ALBUMIN 1.8 g/dL (3.4-5.0); BILIRUBIN,TOTAL 0.2 mg/dL (0.2-1.0); CALCIUM, SERUM 8.2 mg/dL (8.5-10.1); CREATININE 0.7 mg/dL (0.6-1.3); MAGNESIUM 2.5 mg/dL (1.8-2.4); PHOSPHORUS 3.3 mg/dL (2.5-4.9); POTASSIUM 3.9 mmol/L (3.5-5.1); TOTAL PROTEIN, SERUM 6.4 g/dL (6.4-8.2)
--- NOTE | 2020-02-23 06:51 | NUR ---
RN NOTES PATIENT REMAINED INTUBATED IN COOL AEROSOL. TOLERATED WELL. SATURATION REMAINED >92%. AFEBRILE. STRICTLY ON ISOLATION FOR COVID 19 NEEDS FREQUENT ORAL SUCTION. NO ACUTE RESPIRATORY DISTRESS. GTF REMAINED INTACT WELL TUBBS CATH. IV SITE ON FINN MIDLINE WITH GOOD BLD. RETURN. KEPT PT CLEAN AND DRY. TURNED AND REPOSITIONED Q2H AND PRN AND PT COMFORTABLE.
--- NOTE | 2020-02-23 07:57 | NUR ---
ICU/RN: INITIAL NOTE,AM RECEIVED REPORT FROM NIGHT NURSE. PT INTUBATED ON VENT SETTINGS ORDERED BY MD, SCHEDULED FOR TRACH THURSDAY, CONSENT IN CHART. PT OPENS EYES, DOES NOT FOLLOW COMMANDS. SINUS ON TELE. TUBE FEEDING INFUSING, TOLERATING WELL, WILL MONITOR RESIDUAL. LEFT UPPER ARM MIDLINE PATENT AND INTACT, NO S/S OF INFECTION OR INFILTRATION NOTED. ALL NEEDS WILL BE ATTENDED TO,SAFETY MEASURES TAKEN, BED IN LOW POSITION, SIDE RAILS UP, CALL LIGHT WITHIN REACH. WILL CONTINUE CARE.
[2020-02-23] MEDS: PROSOURCE / PROSTAT (PYXIS) 30 ML UDC GT SCH (08:53)
[2020-02-23] MEDS: PHENYTOIN SUSP UDC 100 MG/4 ML UDC GT SCH ×2 (08:53→21:00)
[2020-02-23] MEDS: DOCUSATE SODIUM LIQ 100 MG/10 ML UDC GT SCH ×2 (08:53→17:33)
[2020-02-23] MEDS: PANTOPRAZOLE 40 MG/PACK PACK GT SCH (08:54)
[2020-02-23] MEDS: LACOSAMIDE 50 MG TABLET PO SCH ×2 (08:54→22:34)
[2020-02-23] MEDS: LEVETIRACETAM (250 MG) 250 MG TABLET PO SCH ×2 (08:55→22:36)
[2020-02-23] MEDS: CYANOCOBALAMIN 100 MCG TABLET GT SCH (08:55)
[2020-02-23] MEDS: AMLODIPINE BESYLATE 5 MG TABLET PO SCH (08:56)
[2020-02-23] MEDS: VALSARTAN 80 MG TABLET PO SCH (08:56)
[2020-02-23] MEDS: hydrALAZINE HCL 50 MG TABLET PO SCH ×3 (08:56→17:33)
[2020-02-23] MEDS: FUROSEMIDE 40 MG/4 ML VIAL IV SCH ×3 (09:30→17:33)
--- NOTE | 2020-02-23 17:30 | NUR ---
ICU/RN: EXTENSIVE CONVERSATION WITH SISTERS OF PT REGARDING PT CONDITION AND TRACH PROCEDURE WHICH IS SCHEDULED FOR TOMORROW. SISTERS REQUESTED TO SPEAK TO . CALLED AND NUMBER GIVEN
[2020-02-23] MEDS: JEVITY 1.2 CAL 1,000 ML BOTTLE GT PRN (17:43)
--- NOTE | 2020-02-23 18:00 | NUR ---
ICU/RN: RECEIVED CALL BACK FROM SISTERS, SPOKE TO AND GAVE CONSENT FOR TRACH PROCEDURE IN AM.
--- NOTE | 2020-02-23 19:12 | NUR ---
ICU/RN ENDING NOTES,AM REPORT ENDORSED TO NIGHT NURSE FOR BARBARA. PT ON T PIECE WITH SETTINGS ORDERED. NO ACUTE DISTRESS NOTED. SINUS ON TELE. PT SCHEDULED FOR TRACH PLACEMENT 0730 TOMORROW AM. CONSENT IN CHART. ENDORSED TO MAKE PT NPO AFTER MIDNIGHT AND TO HOLD LOVENOX. ALL NEEDS ATTENDED TO, BED BATH GIVEN, LINENS CHANGED, BED IN LOW POSITION, SIDE RAILS UP, CALL LIGHT WITHIN REACH. WILL CONTINUE CARE
--- NOTE | 2020-02-23 19:40 | NUR ---
RN NOTES RECEIVED PATIENT WITH ETT 7.5 POSITION AT 25 CM AT LIP LINE CONNECTED TO COOL AEROSOL W/ 02 8LPM AND FIO2-35%, SATURATING WELL 98%. ON ISOLATION FOR + COVID 19 STRICTLY OBSERVED. OPENS EYES NOT FOLLOWING COMMANDS.+ GAG REFLEX, SUCTION ORALLY AND TROUGH INTUBATED. NO ACUTE RESPIRATORY DISTRESS. NO EPISODE OF SEIZURE, GTF JEVITY 1.2 AT 75ML/HR TOLERATING WELL, HOB KEPT ELEVATED, IV SITE ON ROSAURA MIDLINE W/ GOOD BLOOD RETURN, TKO RUNNING. F/C INTACT W/ YELLOW COLOR URINE VIA GRAVITY. SAFETY MEASURES IN PLACE WILL CLOSELY MONITOR.
--- NOTE | 2020-02-23 20:30 | NUR ---
RN NOTES INFORMED ONCALL DR. LOJA REGARDING PHENYTOIN LEVEL 27.3 PER LAB WITH ORDER TO HOLD DILANTIN FOR NOW AND LET THE AM SHIFT NOW. NOTED AND CARRIED OUT ORDER.
[2020-02-23] MEDS: ENOXAPARIN SODIUM 40 MG/0.4 ML DISP.SYRIN SQ SCH (21:00)
[2020-02-24] VITALS (24 sets, daily range): BP systolic 97–157; BP diastolic 58–90
[2020-02-24] MEDS: METOPROLOL TARTRATE 50 MG TABLET PO SCH ×5 (00:40→23:42)
[2020-02-24 04:02] LABS: BASOPHILS # (AUTO) 0.1 /CMM (0.0-0.2); EOSINOPHILS % (AUTO) 4.7 % (0.0-6.0); HEMATOCRIT 36 % (33-45); HEMOGLOBIN 11.6 g/dL (11.5-14.8); LYMPHOCYTES # (AUTO) 2.6 /CMM (0.8-4.8); LYMPHOCYTES % (AUTO) 35.4 % (20.0-44.0); MEAN CORPUSCULAR HGB CONC 32 g/dl (31.0-36.0); MEAN CORPUSCULAR VOLUME 98 fL (82-100); MONOCYTES # (AUTO) 0.6 /CMM (0.1-1.30); MONOCYTES % (AUTO) 8.4 % (2.0-12.0); NEUTROPHILS # (AUTO) 3.6 /CMM (1.8-8.9); NEUTROPHILS % (AUTO) 50.5 % (43.0-81.0); PLATELET COUNT (AUTO) 423 /CMM (150-450); WHITE BLOOD COUNT (AUTO) 7.2 K/uL (4.3-11.0)
[2020-02-24 04:12] LABS: ALBUMIN 1.9 g/dL (3.4-5.0); BILIRUBIN,TOTAL 0.3 mg/dL (0.2-1.0); CALCIUM, SERUM 8.6 mg/dL (8.5-10.1); CREATININE 0.7 mg/dL (0.6-1.3); MAGNESIUM 2.5 mg/dL (1.8-2.4); PHOSPHORUS 3.2 mg/dL (2.5-4.9); POTASSIUM 3.7 mmol/L (3.5-5.1); TOTAL PROTEIN, SERUM 6.5 g/dL (6.4-8.2)
--- NOTE | 2020-02-24 07:00 | NUR ---
RN NOTES PATIENT ASLEEP WELL ON BED ETT ON COOL AEROSOL TOLERATED WELL. NO SIGNIFICANT CHANGES. AFEBRILE. CONTINUE ON ISOLATION PRECAUTION FOR COVID19+. SR ON TELE MONITOR.FREQ. SUCTION ORALLY AND TROUGH ETT NEEDED. CALLED AND DPOKE TO QUIN SISTER AND GOT CONSENT FOR BLOOD TRANSFUSION IN CASE THAT PATIENT NEEDED IT FOR TRACH PROCEDURE. PATIENT HAS PENDING TRACH PROCEDURE TODAY. ENDORSED CONTINUITY OF CARE TO AM NURSE. PATIENT KEPT CLEAN AND DRY.
[2020-02-24] MEDS ORDERED: CELLULOSE,OXIDIZED 1 PKT EACH MC ONE ×2 (08:57→09:53)
[2020-02-24] MEDS ORDERED: LIDOCAINE HCL/MPF 1% 30 ML VIAL IJ ONE (08:57)
[2020-02-24] MEDS ORDERED: MIDAZOLAM HCL 2 MG/2ML VIAL ONE (09:11)
--- NOTE | 2020-02-24 09:30 | NUR ---
RN NOTE 0715: Received patient awake, able to open eyes but does not follow commands. With ETT to cool aerosol, tolerated. Noted with copious amount or oral secretions. GT intact, feeding on hold for tracheostomy placement today. ROSAURA midline intact. 0920: Picked up by OR personnels for trache placement, VSS.
[2020-02-24] MEDS: PHENYTOIN SUSP UDC 100 MG/4 ML UDC GT SCH ×2 (10:35→21:00)
[2020-02-24] MEDS: DOCUSATE SODIUM LIQ 100 MG/10 ML UDC GT SCH ×2 (10:35→16:44)
[2020-02-24] MEDS: VALSARTAN 80 MG TABLET PO SCH (10:36)
[2020-02-24] MEDS: LEVETIRACETAM (250 MG) 250 MG TABLET PO SCH ×2 (10:36→21:14)
[2020-02-24] MEDS: LACOSAMIDE 50 MG TABLET PO SCH ×2 (10:36→21:14)
[2020-02-24] MEDS: PANTOPRAZOLE 40 MG/PACK PACK GT SCH (10:37)
[2020-02-24] MEDS: CYANOCOBALAMIN 100 MCG TABLET GT SCH (10:37)
[2020-02-24] MEDS: AMLODIPINE BESYLATE 5 MG TABLET PO SCH (10:37)
[2020-02-24] MEDS: hydrALAZINE HCL 50 MG TABLET PO SCH ×3 (10:37→16:44)
[2020-02-24] MEDS: PROSOURCE / PROSTAT (PYXIS) 30 ML UDC GT SCH (10:38)
[2020-02-24] MEDS: HYDROCODONE/APAP 5/325MG TABLET GT PRN (14:08)
--- NOTE | 2020-02-24 16:09 | NUR ---
RN NOTE 1030: Back to room, with a recovery nurse. VSS, trache. Shiley #8 intact. to vent, AC 12 450 40% +5. 1430: Cleaned patient. Given [place] for comfort. Spoke with family and update given. No any significant changes. Continue monitoring. GT feeds tolerated. S/E by Dr. De La Fuente, said to hold Dilantin dose tonight. 1600: No any significant changes noted. Kept clean, warm and dry. Needs attended.
[2020-02-24] MEDS: ENOXAPARIN SODIUM 40 MG/0.4 ML DISP.SYRIN SQ SCH (21:15)
--- NOTE | 2020-02-24 21:42 | NUR ---
ROASTERMAN NON ADMIN DILANTIN ORDER PER MD FOR LEVEL OF 27.3.
[2020-02-24] MEDS: JEVITY 1.2 CAL 1,000 ML BOTTLE GT PRN (23:40)
[2020-02-25] VITALS (13 sets, daily range): BP systolic 99–172; BP diastolic 62–96
[2020-02-25 05:12] LABS: BASOPHILS % (AUTO) 0.2 % (0.0-2.0); EOSINOPHILS % (AUTO) 2.6 % (0.0-6.0); HEMATOCRIT 34 % (33-45); HEMOGLOBIN 11.1 g/dL (11.5-14.8); LYMPHOCYTES % (AUTO) 12.7 % (20.0-44.0); MEAN CORPUSCULAR HGB CONC 33 g/dl (31.0-36.0); MEAN CORPUSCULAR VOLUME 97 fL (82-100); MONOCYTES % (AUTO) 6.8 % (2.0-12.0); NEUTROPHILS % (AUTO) 77.7 % (43.0-81.0); PLATELET COUNT (AUTO) 443 /CMM (150-450); WHITE BLOOD COUNT (AUTO) 7.6 K/uL (4.3-11.0)
[2020-02-25 05:13] LABS: MONOCYTES # (AUTO) 0.5 /CMM (0.1-1.30); NEUTROPHILS # (AUTO) 5.9 /CMM (1.8-8.9)
[2020-02-25 05:45] LABS: CALCIUM, SERUM 8.4 mg/dL (8.5-10.1); CREATININE 0.6 mg/dL (0.6-1.3); MAGNESIUM 2.4 mg/dL (1.8-2.4); PHOSPHORUS 2.9 mg/dL (2.5-4.9); POTASSIUM 3.7 mmol/L (3.5-5.1)
[2020-02-25] MEDS: METOPROLOL TARTRATE 50 MG TABLET PO SCH ×4 (06:06→23:11)
--- NOTE | 2020-02-25 06:32 | NUR ---
INCLINED RAILWAY OPERATOR NO SEIZURE ACTIVITY NOTED THROUGHOUT SHIFT.
[2020-02-25] MEDS: HYDROCODONE/APAP 5/325MG TABLET GT PRN (07:39)
[2020-02-25] MEDS: VALSARTAN 80 MG TABLET PO SCH (09:00)
[2020-02-25] MEDS: AMLODIPINE BESYLATE 5 MG TABLET PO SCH (09:00)
[2020-02-25] MEDS: hydrALAZINE HCL 50 MG TABLET PO SCH ×3 (09:00→17:03)
[2020-02-25] MEDS: DOCUSATE SODIUM LIQ 100 MG/10 ML UDC GT SCH ×2 (09:04→17:02)
[2020-02-25] MEDS: LACOSAMIDE 50 MG TABLET PO SCH ×2 (09:04→20:24)
[2020-02-25] MEDS: PROSOURCE / PROSTAT (PYXIS) 30 ML UDC GT SCH (09:04)
[2020-02-25] MEDS: PANTOPRAZOLE 40 MG/PACK PACK GT SCH (09:04)
[2020-02-25] MEDS: PHENYTOIN SUSP UDC 100 MG/4 ML UDC GT SCH ×2 (09:04→20:23)
[2020-02-25] MEDS: CYANOCOBALAMIN 100 MCG TABLET GT SCH (09:04)
--- NOTE | 2020-02-25 09:20 | NUR ---
pt placed into cool aerosol as order. trach cuff deflated. Addendum: 02/25/20 at 0920 by MONIQUE MOSQUEDA RT Amended: Links added.
--- NOTE | 2020-02-25 10:00 | NUR ---
RN NOTE 0715: Received patient, opens eyes but does not follow commands. No twitching noted. With trache to cent, tolerated settings. No respiratory distress noted. GT intact, feeding tolerated. On iso prec for Covid, maintained and obserced. ROSAURA midline intact. Ron cath intact, noted with good UOP. 0930: S/E by Dr. Mora, with order to may transfer to Tele status. 1000: No any significant changes noted at this time. Kept clean, warm and dry. Needs attended.
[2020-02-25] MEDS: LEVETIRACETAM (250 MG) 250 MG TABLET PO SCH ×2 (10:44→20:23)
[2020-02-25] MEDS: JEVITY 1.2 CAL 1,000 ML BOTTLE GT PRN (17:02)
--- NOTE | 2020-02-25 19:23 | NUR ---
RN NOTE No any significant changes noted. Tolerated cool aerosol 40%. Kept clean, warm and dry. Needs attended.
--- NOTE | 2020-02-25 19:30 | NUR ---
RN OPENING NOTE RECEIVED PATIENT IN BED RESTING ALERT CONFUSED EYES CLOSED OBTUNDED,FULL CODE, NON VERBAL ON TRACH, ON OXYGEN 8 L,ON MONITORING FOR COVID 19 POSITIVE, DROPLET/CONTACT ISOLATION,ON G-TUBE FEEDING JEVITY 1.2 75CC/HR CHECKED PLACEMENT, NO RESIDUAL, ON TUBBS CATHETER URINE DRAINING YELLOW AND CLEAR,IV SITE IS ON LEFT UPPER ARM MID LINE PATENT INTACT FLUSHED,HEAD OF BED ELEVATED,BED IN LOW POSITION,BED ALARM IS ON,IMPLEMENT SAFETY MEASURE,CONTINUE TO MONITOR
[2020-02-25] MEDS: ACETAMINOPHEN 650 MG/20.3 ML UDC GT PRN (21:18)
--- NOTE | 2020-02-25 21:18 | NUR ---
RN NOTE ACETAMINOPHEN 650MG PRN GIVEN FOR MILD PAIN 09/05
[2020-02-26] VITALS: BP 154/88
[2020-02-26] MEDS: HYDROCODONE/APAP 5/325MG TABLET GT PRN (00:39)
--- NOTE | 2020-02-26 00:39 | NUR ---
RN NOTE NORCO 5-325MG PRN EVERY 4 HOURS FOR PAIN 5/10 GIVEN
[2020-02-26 04:00] VITALS: BP 113/85
[2020-02-26] MEDS: METOPROLOL TARTRATE 50 MG TABLET PO SCH ×3 (05:44→18:00)
--- NOTE | 2020-02-26 05:45 | NUR ---
RN NOTE HOLD METOPROLOL 25 MG DUE TO SBP<105 BP:102/60
--- NOTE | 2020-02-26 07:16 | NUR ---
RN CLOSING NOTE PATIENT REMAINS ON BED RESTING ALERT OPEN EYES,OBTUNDED,ON TELE MONITORING ALSO MONITORING FOR COVID 19 POSITIVE DROPLET/CONTACT ISOLATION,ON TRACH 8L OXYGEN,ON G-TUBE FEEDING JEVITY 1.2 75CC/HR NO RESIDUAL NOTED,IV SITE IS ON LEFT UPPER ARM MID LINE INTACT PATENT ALL DUE MEDS GIVEN VIA G-TUBE FEEDING AND TOLERATED WELL,KEPT CLEAN AND DRY ALL THE TIME,HEAD OF BED ELEVATED,ON TUBBS CATHETER,URINE DRAINAGE YELLOW AND CLEAR,IMPLEMENTED SAFETY MEASURE,ENDORSE NEXT COMING SHIFT FOR CONTINUATION OF CARE.
--- NOTE | 2020-02-26 07:30 | NUR ---
RN OPENING NOTES RECEIVED PATIENT RESTING ON BED, OPEN EYES,OBTUNDED. ON TELE MONITORING SHOWING SR. ON TRACH @ 8L OXYGEN. ON G-TUBE FEEDING JEVITY 1.2 @ 75CC/HR TOLERATING WELL. IV SITE ON LEFT UPPER ARM MID LINE INTACT AND PATENT. ON TUBBS CATHETER, DRAINING YELLOW URINE. SAFETY MEASURES IN PLACE , BED IS LOCKED AND IN LOWEST POSITION AND HOB ELEVATED 30 DEGRESS. CALL LIGHT IS WITHIN REACH, WILL CONTINUE TO MONITOR.
[2020-02-26 08:00] VITALS: BP 102/62
[2020-02-26] MEDS: VALSARTAN 80 MG TABLET PO SCH (08:38)
[2020-02-26] MEDS: hydrALAZINE HCL 50 MG TABLET PO SCH ×3 (08:40→17:00)
[2020-02-26] MEDS: AMLODIPINE BESYLATE 5 MG TABLET PO SCH (08:40)
--- NOTE | 2020-02-26 08:41 | NUR ---
RN NOTES PER MD LITZY GUSMAN TO HOLD AM BLOOD PRESSURE MEDICATION. ALSO, CHARGE NURSE IS AWARE. WILL CONTINUE TO MONITOR BP.
[2020-02-26] MEDS: LEVETIRACETAM (250 MG) 250 MG TABLET PO SCH ×2 (08:53→20:27)
[2020-02-26] MEDS: PANTOPRAZOLE 40 MG/PACK PACK GT SCH (08:53)
[2020-02-26] MEDS: PHENYTOIN SUSP UDC 100 MG/4 ML UDC GT SCH ×2 (08:53→20:26)
[2020-02-26] MEDS: CYANOCOBALAMIN 100 MCG TABLET GT SCH (08:53)
[2020-02-26] MEDS: LACOSAMIDE 50 MG TABLET PO SCH ×2 (08:53→20:28)
[2020-02-26] MEDS: DOCUSATE SODIUM LIQ 100 MG/10 ML UDC GT SCH ×2 (08:54→17:11)
[2020-02-26] MEDS ORDERED: CLOPIDOGREL BISULFATE 75 MG TABLET PO SCH (09:00)
[2020-02-26] MEDS: PROSOURCE / PROSTAT (PYXIS) 30 ML UDC GT SCH (09:50)
[2020-02-26 12:00] VITALS: BP 107/62
--- NOTE | 2020-02-26 12:22 | NUR ---
RN NOTES PER CHARGE NURSE AND MD HOLD [facility] VITAL SIGHNS FOLLOWS HR: 85 AND BP: 107/62. WILL CONTINUE TO MONITOR BP
--- NOTE | 2020-02-26 14:09 | NUR ---
RN NOTES PER CHARGE NURSE AND MD HOLD HYDRALAZINE 50MG VITAL SIGHNS FOLLOWS HR: 89 AND BP: 117/79. WILL CONTINUE TO MONITOR BP
[2020-02-26 16:00] VITALS: BP 114/73
[2020-02-26] MEDS: JEVITY 1.2 CAL 1,000 ML BOTTLE GT PRN (16:34)
--- NOTE | 2020-02-26 17:05 | NUR ---
RN NOTES PER CHARGE NURSE AND MD HOLD HYDRALAZINE VITALS SIGNS FOLLOWS HR: 89 AND BP: 126/74. WILL CONTINUE TO MONITOR BP
--- NOTE | 2020-02-26 18:16 | NUR ---
RN NOTES PER CHARGE NURSE AND MD HOLD [facility] VITAL SIGNS FOLLOWS HR: 90 AND BP: 124/77. WILL CONTINUE TO MONITOR BP
--- NOTE | 2020-02-26 18:36 | NUR ---
RN CLOSING NOTE PATIENT REMAINS SLEEPING ON BED. OPEN EYES,OBTUNDED. TELE MONITORING SHOWING SR - ST @ 90-99s. ON TRACH 8L OXYGEN, NO RESPIRATORY DISTRESS NOTED. ON G-TUBE FEEDING JEVITY 1.2 75CC/HR NO RESIDUAL NOTED. IV SITE IS ON LEFT UPPER ARM MID LINE INTACT AND PATENT. ALL DUE MEDS GIVEN VIA G-TUBE FEEDING AND TOLERATED WELL. SAFETY MEASURES IN PLACE , BED IS LOCKED, IN LOWEST POSITION AND HOB ELEVATED 30 DEGREES. CALL LIGHT IS WITHIN REACH. WILL ENDORSE TO ONCOMING SHIFT FOR BARBARA.
--- NOTE | 2020-02-26 19:15 | NUR ---
RN OPENING NOTE RECEIVED PATIENT IN BED RESTING,EYE CLOSED OBTUNDED,CONFUSED,NON VERBAL,FULL CODE,ON TELE MONITORING, MONITORING FOR COVID 19 POSITIVE AND DROPLET/CONTACT ISOLATION,ON TRACH 8 L OXYGEN, O2:99% HR:99 NO SOB NOT ACUTE DISTRESS NOTED,IV SITE IS ON LEFT UPPER ARM MID LINE INTACT PATENT,ON G-TUBE FEEDING JEVITY 1.2 75CC/HR CHECK PLACEMENT,NO RESIDUAL,HEAD OF BED ELEVATED,ON TUBBS CATHETER,URINE DRAINING YELLOW AND CLEAR,IMPLEMENT SAFETY MEASURE,BED ALARM IS ON ,AND LOCKED,CONTINUE TO MONITOR.
[2020-02-26] MEDS ORDERED: ATROPINE SULFATE 1 MG/10 ML DISP.SYRIN ONE (20:00)
[2020-02-26] MEDS ORDERED: EPINEPHRINE (1:10,000) SYRINGE 1 MG/10 ML DISP.SYRIN ONE (20:00)
[2020-02-26 20:15] VITALS: BP 115/76
--- NOTE | 2020-02-26 21:45 | NUR ---
RN NOTES TURF MANAGER CALLED TO BEDSIDE DUE TO CODE BLUE, ASYSTOLE PER PATIENT'S PRIMARY NURSE. CPR/ACLS IN PROGRESS. 3 ROUNDS OF EPINEPHRINE ADMINISTERED DURING CODE BEFORE PATIENT PRONOUNCED BY ER MD, DR KIRBY. NO BP. NO PULSE PALPABLE. ASYSTOLE ON MONITOR, NO HEART TONES UPON AUSCULTATION, NO SPONTANEOUS BREATHING OR VISIBLE CHEST RISE. PUPILS FIXED AND DILATED, PRONOUNCED @ 2145
--- NOTE | 2020-02-26 22:30 | NUR ---
RN NOTE AT 2014 CHECKED THE PATIENT BP:115/76 HR 97 ON TRACH 8 LITER OXYGEN O2:99% RR:18 NO RESPIRATORY DISTRESS NOTED,NO SOB,HEAD OF BED ELEVATED,ALL DUE 2099 MEDS GIVEN MD ORDERED AT 2017 VIA G-TUBE NO RESPIRATORY DISTRESS NOTED,AT 2114 WHEN MONITORED THE PATIENT HAD DIFFICULTY BREATHING,SUCTIONING HR:137,BP:177/86,AT 2119 CALLED RT OR ASSIST,RT ASSISTED,PATIENT DESATURATED, AT 82% AT 2126 CALLED JOHNSON LLAMAS HR:45 STARTED CPR,ROMEO LLAMAS TEAM ARRIVED AT 2127,CONTINUED CPR,MONITORED SHOWED ASYSTOLE AT 2144,DR KIRBY ER DOCTOR PRONOUNCED TIME OF AT 2144,AT 2199 CALLED RESPONSIBLE REPUBLICAN,SISTER, DEAN NO ANSWERED,NO MESSAGE WENT THROUGH,CALLED STEVEN NEXT TO KIN AND MADE AWARE,DEAN CALLED BACK AND MADE AWARE,CALLED ROSENDO LOJA REPORTED.
--- NOTE | 2020-02-26 22:31 | NUR ---
RN NOTE POST MORGUE CARE GIVEN AT 2204.CALLED RESPONSIBLE REPUBLICAN NO ANSWERED.
== END 2020-02-26 21:45 | disposition expired | DRG 4 ==
LOC: ER 22:01 → TELE1 23:51 → ICU 02-01 13:57 → TELE1 02-25 20:21
PROVIDERS: ADMIT Internal Medicine; ATTEND Internal Medicine
PROC: 05HY33Z Insertion of Infusion Device into Upper Vein, Percutaneous Approach (ICD-10-PCS; 2020-02-01)
PROC: 5A1955Z Respiratory Ventilation, Greater than 96 Consecutive Hours (ICD-10-PCS; principal; 2020-02-02)
PROC: 0BH17EZ Insertion of Endotracheal Airway into Trachea, Via Natural or Artificial Opening (ICD-10-PCS; 2020-02-02)
PROC: 0B110F4 Bypass Trachea to Cutaneous with Tracheostomy Device, Open Approach (ICD-10-PCS; 2020-02-24)
DX: A41.89 Other specified sepsis (principal); U07.1 COVID-19; N17.0 Acute kidney failure with tubular necrosis; J12.89 Other viral pneumonia; J96.01 Acute respiratory failure with hypoxia; G92 Toxic encephalopathy; E43 Unspecified severe protein-calorie malnutrition; R65.21 Severe sepsis with septic shock; J15.9 Unspecified bacterial pneumonia; I69.359 Hemiplegia and hemiparesis following cerebral infarction affecting unspecified side; N39.0 Urinary tract infection, site not specified; D68.59 Other primary thrombophilia; J98.11 Atelectasis; I13.0 Hypertensive heart and chronic kidney disease with heart failure and stage 1 through stage 4 chronic kidney disease, or unspecified chronic kidney disease; I50.32 Chronic diastolic (congestive) heart failure; E87.2 Acidosis; E87.0 Hyperosmolality and hypernatremia; N18.9 Chronic kidney disease, unspecified; K21.9 Gastro-esophageal reflux disease without esophagitis; I25.10 Atherosclerotic heart disease of native coronary artery without angina pectoris; M81.0 Age-related osteoporosis without current pathological fracture; M19.90 Unspecified osteoarthritis, unspecified site; G40.901 Epilepsy, unspecified, not intractable, with status epilepticus; R13.10 Dysphagia, unspecified; Z79.51 Long term (current) use of inhaled steroids; Z74.01 Bed confinement status; Z93.1 Gastrostomy status; Z79.02 Long term (current) use of antithrombotics/antiplatelets; E78.5 Hyperlipidemia, unspecified; E86.9 Volume depletion, unspecified; F03.90 Unspecified dementia, unspecified severity, without behavioral disturbance, psychotic disturbance, mood disturbance, and anxiety; D63.8 Anemia in other chronic diseases classified elsewhere; T17.990A Other foreign object in respiratory tract, part unspecified in causing asphyxiation, initial encounter; X58.XXXA Exposure to other specified factors, initial encounter; Y92.9 Unspecified place or not applicable; H26.9 Unspecified cataract; M62.421 Contracture of muscle, right upper arm; D50.9 Iron deficiency anemia, unspecified; E55.9 Vitamin D deficiency, unspecified; E11.22 Type 2 diabetes mellitus with diabetic chronic kidney disease; E11.36 Type 2 diabetes mellitus with diabetic cataract; E11.65 Type 2 diabetes mellitus with hyperglycemia; E86.0 Dehydration; E03.9 Hypothyroidism, unspecified; H40.9 Unspecified glaucoma; I48.91 Unspecified atrial fibrillation; I25.2 Old myocardial infarction; I70.0 Atherosclerosis of aorta; L30.4 Erythema intertrigo; M54.30 Sciatica, unspecified side; L89.159 Pressure ulcer of sacral region, unspecified stage; Y95 Nosocomial condition; E66.9 Obesity, unspecified; Z68.34 Body mass index [BMI] 34.0-34.9, adult; T38.0X5A Adverse effect of glucocorticoids and synthetic analogues, initial encounter; Z22.322 Carrier or suspected carrier of Methicillin resistant Staphylococcus aureus; F09 Unspecified mental disorder due to known physiological condition
CPT/HCPCS: 31720; 36410; 36415; 36600; 70450-TC; 70470-TC; 71045-TC; 80048-TC; 80053-TC; 80061-TC; 80076-TC; 80185-TC; 80305; 81000-TC; 82533; 82570-TC; 82728-TC; 82803-TC; 82962-TC; 83615-TC; 83735-TC; 84100-TC; 84155-TC; 84300-TC; 84484-TC; 85025-TC; 85378-TC; 85610-TC; 86140-TC; 86850-TC; 87070-TC; 87081-TC; 87086-TC; 92950-TC; 93307-TC; 94002-TC; 94003-TC; 94640-TC; 94760-TC; 94762-TC; 94799-TC; 95819-TC; 99082-TC; A4217; A6403; G0378; G0480; J0171; J0330; J0461; J0690; J1165; J1650; J1720; J1940; J1953; J2060; J2185; J2250; J2543; J2704; J3480; J3490; J7030; J7040; J7050; J7060; Q9967; U0003-CS